=== PATIENT | female | born 1945 | race Caucasian/White ===

== ENCOUNTER → 2016-08-06 | Outpatient (CLI) | payer BC ==
--- NOTE | 2016-08-06 15:02 | DIAGNOSTIC IMAGING REPORT ---
HAND MIN 3 VIEWS ROUTINE CLINICAL HISTORY: Left hand pain COMPARISON: None. DISCUSSION: No fractures or dislocations are visualized. There is a small calcific density projected between the fourth and fifth metacarpals. There is no erosive disease. IMPRESSION: 1. No acute fractures 2. No evidence of erosive disease 3. Nonspecific 4 mm calcific density projected between the fourth and fifth metacarpals. This is unlikely to be acute Electronically signed by: Benjie Nagy M.D. 08/06/2016 3:01 PM Dictated Date/Time: 08/06/2016 2:54 PM
== END | disposition home or self-care (01) ==
LOC: C.RADBC 14:39
PROVIDERS: ATTEND Internal Medicine Geriatric Medicine
DX: M79.642 Pain in left hand (principal); R93.7 Abnormal findings on diagnostic imaging of other parts of musculoskeletal system

== ENCOUNTER → 2017-03-31 | Outpatient (CLI) | payer BC ==
[2017-04-01 06:40] LABS: ESTIMATED AVERAGE GLUCOSE 108 mg/dl; HA1C FLAG Normal (Normal)
== END | disposition home or self-care (01) ==
LOC: C.LAB1850 16:04
PROVIDERS: ATTEND Internal Medicine Geriatric Medicine
DX: E03.9 Hypothyroidism, unspecified (principal); Z11.59 Encounter for screening for other viral diseases

== ENCOUNTER → 2017-04-13 | Outpatient (CLI) | payer BC | END | disposition home or self-care (01) | LOC: C.MAMM 08:51 | PROVIDERS: ATTEND Internal Medicine Geriatric Medicine | DX: E03.9 Hypothyroidism, unspecified (principal) ==

== ENCOUNTER 2020-12-11 19:27 | Inpatient (IN) ==
--- NOTE | 2020-12-11 20:20 | Emergency Department Note ---
History of Present Illness General Chief Complaint: Shortness of Breath/Dyspnea Stated Complaint: LAURA RIGGS Time Seen by Provider: 12/11/20 20:17 Source: patient Limitations: no limitations History of Present Illness Provider Complaint: shortness of breath Onset (ago): hour(s) (2) Severity: moderate Consistency/Duration: + constant Maximum Pain Intensity: 0 Relieved By: + nothing Exacerbated By: + exertion Context: no recent illness Associated symptoms: no cough Related Data Home oxygen amount: none Home Medications Medication Instructions Recorded Confirmed Type simvastatin 20 mg tablet 20 mg PO HS 05/16/20 12/11/20 History levothyroxine 112 mcg tablet 112 mcg PO QAM #90 tab 05/23/20 12/11/20 Rx gabapentin 300 mg capsule 300 mg PO BID #60 cap 10/22/20 12/11/20 Rx Allergies Allergy/AdvReac Type Severity Reaction Status Date / Time nitrofurantoin Allergy Intermediate SWELLING Verified 12/11/20 21:16 Past Med/Surg History Medical History BPPV (benign paroxysmal positional vertigo) HX Chronic osteoarthritis CLL (chronic lymphocytic leukemia) DX'D 03/2018-F/U [facility] Dyslipidemia Hypothyroidism Surgical History Hx of appendectomy Hx of breast surgery LUMPECTOMY-LEFT 25 YRS AGO Hx of colonoscopy Hx of exploratory laparotomy Hx of rhinoplasty Family History Aunt Breast cancer Father Heart disease Myocardial infarction Family history of diabetes mellitus Mother Stroke Daughter Celiac disease Denies family history of Ovarian cancer Prostate cancer Diabetes Alzheimer disease Dementia Lung cancer Colorectal cancer Social History Smoking Status: Never smoker Second Hand Exposure: No; Hx Alcohol Use: Yes Alcohol type: wine Hx Substance Use: No Preferred Language: Swedish Communication Ability: Effective Perfect Binder Feeder Offbearer Required: No Beliefs That Will Affect Care: None Current Living Situation: Spouse current occupational status: retired current occupation: ungrad administion at [employer] Other Information That Helps Us Care for You: No Feels Safe at Home: Yes Childhood Exposure to Second-Hand Smoke: No caffeine: Yes during the past year weight has: remained stable Dental Care, Regularly: Yes Physical Activity Frequency: Daily Seatbelt Use: always Sunscreen Use: Yes Assistive Devices: Glasses Review of Systems See HPI for pertinent positives & negatives. and A total of 10 systems reviewed and were otherwise negative Physical Exam Vital Signs: Vital Signs - 24 hr 12/11/20 19:37 12/11/20 20:31 12/11/20 20:50 Temperature 38 C H Temperature Source Temporal Artery Sc an Pulse Rate 60 120 H Pulse Rate [Apical ] 117 H Respiratory Rate 20 18 28 H Respiratory Effort / Characteristics Spontaneous Short of Breath Respiratory Depth Normal Blood Pressure 121/52 L Blood Pressure [Le ft Radial Artery] Blood Pressure Zahra n 75 Blood Pressure Zahra n [Left Radial Art yasmin] Blood Pressure Pos ition [Left Radial Artery] Pulse Oximetry 97 92 92 Oxygen Delivery Me thod Room Air Nasal Cannula Oxygen Flow Rate 4 Sepsis Recent Feve r Within 48 Hours Yes Sepsis New/Unexpla ined Change in Men demarco Status No Sepsis Action Take n by Nursing No Action Required 12/11/20 21:06 12/11/20 21:07 12/11/20 22:05 Temperature Temperature Source Pulse Rate 122 H Pulse Rate [Apical ] 118 H Respiratory Rate 16 18 Respiratory Effort / Characteristics Respiratory Depth Blood Pressure Blood Pressure [Le ft Radial Artery] 117/60 Blood Pressure Zahra n Blood Pressure Zahra n [Left Radial Art yasmin] 79 Blood Pressure Pos ition [Left Radial Artery] Pulse Oximetry 97 92 Oxygen Delivery Me thod Nasal Cannula Nasal Cannula Nasal Cannula Oxygen Flow Rate 4 4 3 Sepsis Recent Feve r Within 48 Hours Sepsis New/Unexpla ined Change in Men demarco Status Sepsis Action Take n by Nursing 12/12/20 00:27 12/12/20 00:53 12/12/20 01:20 Temperature 38.2 C H Temperature Source Oral Pulse Rate 102 H Pulse Rate [Apical ] 107 H 106 H Respiratory Rate 16 30 H 18 Respiratory Effort / Characteristics Non-Labored Sponta neous Respiratory Depth Normal Blood Pressure 107/55 L Blood Pressure [Le ft Radial Artery] 112/57 L 114/56 L Blood Pressure Zahra n Blood Pressure Zahra n [Left Radial Art yasmin] 75 75 Blood Pressure Pos ition [Left Radial Artery] Sitting Pulse Oximetry 91 91 91 Oxygen Delivery Me thod Nasal Cannula Nasal Cannula Nasal Cannula Oxygen Flow Rate 3 3 3 Sepsis Recent Feve r Within 48 Hours Sepsis New/Unexpla ined Change in Men demarco Status Sepsis Action Take n by Nursing Physical Exam: GENERAL: Mildly uncomfortable in appearance, wearing glasses and a mask. EYE EXAM: Normal conjunctiva. PERRL, no anisocoria and EOM's grossly intact w/o pain. NECK: Supple, no nuchal rigidity, no adenopathy, non-tender. No signs of meningismus. LUNGS: Scant crackles. Normal chest wall mechanics. HEART: NSR, no MRG. ABDOMEN: Abdomen soft, non-tender, normo-active bowel sounds, no masses, no rebound or guarding. BACK: No CVA TTP. SKIN: Rash over the left flank abdomen. UPPER EXTREMITIES: Upper extremities are grossly normal. LOWER EXTREMITIES: Grossly normal, no edema. NEURO EXAM: A&O x3, cranial nerves II-XII grossly intact, normal speech, moves all 4 extremities on command w/o issue. Course Course Cardiac monitoring: An order was placed for continuous cardiac monitoring. The monitor shows a rate of 95 with sinus rhythm. Administered Medications Discontinued Medications Albuterol (Albut/Ipratrop 3mg/0.5mg Neb 3 Ml Vial) 6 ml NEB NOW STA Stop: 12/11/20 20:32 Last Admin: 12/11/20 20:50 Dose: 6 ml Documented by: [id number] Sodium Chloride (Nss 1000ml) 500 mls @ 999 mls/hr IV .Q31M ONE Stop: 12/11/20 21:01 Last Infusion: 12/12/20 00:39 Dose: 0 mls/hr Documented by: [id number] Admin: 12/11/20 22:18 Dose: 999 mls/hr Documented by: [id number] Magnesium Sulfate/Dextrose (Magnesium Sulfate / D5w) 1 gm in 100 mls @ 100 mls/hr IV NOW STA Stop: 12/11/20 21:32 Last Infusion: 12/11/20 22:12 Dose: 0 mls/hr Documented by: [id number] Admin: 12/11/20 21:01 Dose: 100 mls/hr Documented by: [id number] Methylprednisolone (Methylprednisolone 40 Mg/Ml Vial) 40 mg IV NOW STA Stop: 12/11/20 20:32 Last Admin: 12/11/20 20:58 Dose: 40 mg Documented by: [id number] Medical Decision Making Differential Diagnosis Reactive airway disease, pneumonia, pneumothorax, COPD, CHF, infections, cardiac ischemia, pulmonary embolism, musculoskeletal, gastrointestinal, as well as other pathologies. Medical Records Attestation: I reviewed the patient's medical records. Home Medications Current Medication List: was personally reviewed by me Laboratory Data Attestation: I reviewed the patient's lab results. Result diagrams: 12/11/20 20:20 12/11/20 20:20 Lab Results 12/11/20 12/11/20 12/11/20 Range/Units 20:20 20:20 21:00 WBC 7.60 (4.8-10.8) K/uL RBC 4.07 L (4.2-5.4) M/uL Hgb 10.6 L (12.0-16.0) g/dL Hct 33.8 L (37-47) % MCV 83.0 (80-100) fL MCH 26.0 (25-34) pg MCHC 31.4 L (32-36) g/dL RDW Std Deviation 47.7 H (36.4-46.3) fL RDW Coeff of Roxie 15.6 H (11.5-14.5) % Plt Count 225 (130-400) K/uL MPV 9.5 (7.4-10.4) fL Neutrophils % (Manual) 72.1 % Lymphocytes % (Manual) 2.6 % Prolymphocyte % 23.5 % Monocytes % (Manual) 0.9 % Eosinophils % (Manual) 0.9 % Neutrophils # (Manual) 5.48 (1.4-6.5) K/uL Total Absolute Neuts 5.48 (1.4-6.5) K/uL Lymphocytes # (Manual) 0.20 L (1.2-3.4) K/uL Prolymphocyte # 1.79 H (0-0) K/uL Total Abs Lymphocytes 1.98 (1.2-3.4) K/uL Monocytes # (Manual) 0.07 L (0.11-0.59) K/uL Eosinophils # (Manual) 0.07 (0-0.5) K/uL Polychromasia 1+ VBG pH (7.36-7.41) VBG pCO2 (38-50) mmHg VBG pO2 mmHg VBG HCO3 mmol/L VBG O2 Saturation % VBG Base Excess mEq/L Barometric Pressure mm/Hg Sodium 137 (136-145) mmol/L Potassium 3.8 (3.5-5.1) mmol/L Chloride 103 (98-107) mmol/L Carbon Dioxide 25 (21-32) mmol/L Anion Gap 8.0 (3-11) BUN 10 (7-18) mg/dl Creatinine 0.95 (0.6-1.2) mg/dl Est Cr Clr Drug Dosing 54.1 ml/min Est GFR ( Amer) 68.9 ml/min Est GFR (Non-Af Amer) 59.4 ml/min BUN/Creatinine Ratio 10.1 (10-20) Glucose 156 H (70-99) mg/dl Calcium 8.4 L (8.5-10.1) mg/dl Total Bilirubin 0.7 (0.2-1) mg/dl AST 62 H (15-37) U/L ALT 24 (12-78) U/L Alkaline Phosphatase 198 H (45-117) U/L Troponin I < 0.015 (0-0.045) ng/ml NT-Pro-B Natriuret Pep 792 (0-900) pg/ml Total Protein 6.0 L (6.4-8.2) gm/dl Albumin 2.7 L (3.4-5.0) gm/dl Globulin 3.3 (2.5-4.0) gm/dl Albumin/Globulin Ratio 0.8 L (0.9-2) COVID-19 Eval Order Covid19 at [facility] SARS-CoV-2 (PCR) (Negative) 12/11/20 12/11/20 Range/Units 21:00 21:31 WBC (4.8-10.8) K/uL RBC (4.2-5.4) M/uL Hgb (12.0-16.0) g/dL Hct (37-47) % MCV (80-100) fL MCH (25-34) pg MCHC (32-36) g/dL RDW Std Deviation (36.4-46.3) fL RDW Coeff of Roxie (11.5-14.5) % Plt Count (130-400) K/uL MPV (7.4-10.4) fL Neutrophils % (Manual) % Lymphocytes % (Manual) % Prolymphocyte % % Monocytes % (Manual) % Eosinophils % (Manual) % Neutrophils # (Manual) (1.4-6.5) K/uL Total Absolute Neuts (1.4-6.5) K/uL Lymphocytes # (Manual) (1.2-3.4) K/uL Prolymphocyte # (0-0) K/uL Total Abs Lymphocytes (1.2-3.4) K/uL Monocytes # (Manual) (0.11-0.59) K/uL Eosinophils # (Manual) (0-0.5) K/uL Polychromasia VBG pH 7.46 H (7.36-7.41) VBG pCO2 36 L (38-50) mmHg VBG pO2 29 mmHg VBG HCO3 25 mmol/L VBG O2 Saturation < 60.0 % VBG Base Excess 1.3 mEq/L Barometric Pressure 733.4 mm/Hg Sodium (136-145) mmol/L Potassium (3.5-5.1) mmol/L Chloride (98-107) mmol/L Carbon Dioxide (21-32) mmol/L Anion Gap (3-11) BUN (7-18) mg/dl Creatinine (0.6-1.2) mg/dl Est Cr Clr Drug Dosing ml/min Est GFR ( Amer) ml/min Est GFR (Non-Af Amer) ml/min BUN/Creatinine Ratio (10-20) Glucose (70-99) mg/dl Calcium (8.5-10.1) mg/dl Total Bilirubin (0.2-1) mg/dl AST (15-37) U/L ALT (12-78) U/L Alkaline Phosphatase (45-117) U/L Troponin I (0-0.045) ng/ml NT-Pro-B Natriuret Pep (0-900) pg/ml Total Protein (6.4-8.2) gm/dl Albumin (3.4-5.0) gm/dl Globulin (2.5-4.0) gm/dl Albumin/Globulin Ratio (0.9-2) COVID-19 Eval Order SARS-CoV-2 (PCR) NEGATIVE (Negative) Imaging Data Radiologist's Impression: Chest X-Ray 12/11/20 20:31 XR chest 1V portable CLINICAL HISTORY: Dyspnea COMPARISON STUDY: No previous studies for comparison. FINDINGS: No pneumothorax. Moderate left pleural effusion associated with atelectasis/infiltrate. Hazy opacity seen at the right base could represent inflammatory changes/pneumonia or atelectasis. Cardiomediastinal silhouette is within normal limits in size. No significant pulmonary vascular congestion.. Osseous structures: unremarkable Surgical clips are seen within the anatomical region of the left axilla. IMPRESSION: 1. Left pleural effusion associated with atelectasis or infiltrate at the left base. 2. Atelectasis or consolidative opacities within the right lower lung. ACT 112: Negative or not required by law. The above report was generated using voice recognition software. It may contain grammatical, syntax or spelling errors. Electronically signed by: Margarita Garzon DO 12/11/2020 9:39 PM ECG Data Interpretation: Sinus tachycardia, rate of 120, normal intervals, normal axis, n o ST elevations. MDM Narrative Patient did present with concern for shortness of breath. The patient states that this was acute in onset as the patient had had a recent CT scan of the chest abdomen pelvis completed in the outpatient setting approximate 2 hours prior to arrival. This was done with IV contrast. Patient does present febrile but the patient states that she has had numerous CAT scans that have been completed and that she has not been offered much in terms of treatment or an answer. The patient denies any chest pains. Patient denies any nausea or vomiting. The patient thinks that she may have a small amount of leg swelling. The patient reportedly had all these issues begin the springtime in September as the patient had developed shingles. Per outpatient review of notes the patient was thought to have may be CLL or cancer of the spleen and then it was something on the kidney but that a repeat scan did not show any kidney lesion. Patient has been noted to have pleural effusions seen on chest x-ray and I had reviewed after orders were initially placed. The patient did not seem grossly volume overloaded. Patient did have a repeat chest x-ray here. The patient did have improvement in symptoms but after reviewing the patient's outpatient CT scan the patient does have significant pleural effusion seen there. We do not have a read. I discussed with the patient that the patient would likely benefit from Lasix as well as possible BiPAP. She does not believe that she would be able to tolerate the BiPAP very well. The patient was tested for Covid given the patient's fever. Upon reassessment after being treated with the DuoNeb small amount of fluid and steroids the patient did state that she had improvement in her symptoms. Patient has normal white counts with anemia at 10. The patient's kidney function is unremarkable. VBG does show hypocarbia. Patient has normal kidney function. Troponin is not detectable and BNP is not elevated. Covid negative. Given the patient's significant pleural effusions and shortness of breath with associated fever believe the patient would benefit from inpatient treatment at this time. I did speak with the on-call hospitalist Dr. Leone and the patient was admitted to the medicine service. Of note the patient's shingle rash over the left abdomen is reportedly improved as the patient no longer has any blistering and the patient has improvement in her pain. Impression & Plan Acute dyspnea, Pleural effusion, Anemia Discharge Plan Visit Data Chief Complaint: Shortness of Breath/Dyspnea Stated Complaint: SHAKY,LAURA ED Provider: Garfield Brown Patient Disposition: Admitted As Inpatient Prescriptions Prescriptions: No Action levothyroxine 112 mcg tablet 112 mcg PO QAM Qty: 90 RF: 3 gabapentin 300 mg capsule 300 mg PO BID Qty: 60 RF: 2 simvastatin 20 mg tablet 20 mg PO HS RF: 0
[2020-12-11] MEDS ORDERED: ALBUT/IPRATROP 3MG/0.5MG NEB 3 ML VIAL NEB STA (20:31)
[2020-12-11] MEDS ORDERED: SODIUM CHLORIDE 0.9% 1000ML 500 ML IV ONE (20:31)
[2020-12-11] MEDS ORDERED: MAGNESIUM SULFATE / D5W 1 GM/100 ML BAG IV STA (20:33)
[2020-12-11 20:56] LABS: Hematocrit (blood only) 33.8 % (37-47); Hemoglobin 10.6 g/dL (12.0-16.0); Mean Corpuscular Hgb Conc 31.4 g/dL (32-36); Mean Platelet Volume 9.5 fL (7.4-10.4); Platelet Count 225 K/uL (130-400); RDW Coefficient of Variation 15.6 % (11.5-14.5); RDW Standard Deviation 47.7 fL (36.4-46.3); Red Blood Count 4.07 M/uL (4.2-5.4)
[2020-12-11 21:34] LABS: Alanine Aminotransferase 24 U/L (12-78); Albumin Level 2.7 gm/dl (3.4-5.0); BUN Creatinine Ratio 10.1 (10-20); Blood Urea Nitrogen 10 mg/dl (7-18); Calcium 8.4 mg/dl (8.5-10.1); Carbon Dioxide 25 mmol/L (21-32); Chloride 103 mmol/L (98-107); Creatinine Clr Calc Pharmacy 54.1 ml/min; Est GFR (African American) 68.9 ml/min; Est GFR (Non-African American) 59.4 ml/min; Glucose 156 mg/dl (70-99); Potassium 3.8 mmol/L (3.5-5.1); Sodium 137 mmol/L (136-145)
--- NOTE | 2020-12-11 21:40 | XRay Report ---
XR chest 1V portable CLINICAL HISTORY: Dyspnea COMPARISON STUDY: No previous studies for comparison. FINDINGS: No pneumothorax. Moderate left pleural effusion associated with atelectasis/infiltrate. Hazy opacity seen at the right base could represent inflammatory changes/pneumonia or atelectasis. Cardiomediastinal silhouette is within normal limits in size. No significant pulmonary vascular congestion.. Osseous structures: unremarkable Surgical clips are seen within the anatomical region of the left axilla. IMPRESSION: 1. Left pleural effusion associated with atelectasis or infiltrate at the left base. 2. Atelectasis or consolidative opacities within the right lower lung. ACT 112: Negative or not required by law. The above report was generated using voice recognition software. It may contain grammatical, syntax o r spelling errors. Electronically signed by: Margarita Garzon DO 12/11/2020 9:39 PM
[2020-12-11 21:46] LABS: Albumin Globulin Ratio 0.8 (0.9-2); Alkaline Phosphatase 198 U/L (45-117); Aspartate Aminotransferase 62 U/L (15-37); Bilirubin,Total 0.7 mg/dl (0.2-1); Globulin 3.3 gm/dl (2.5-4.0); NT Pro B Type Natriuretic Pept 792 pg/ml (0-900); Troponin I < 0.015 ng/ml (0-0.045)
[2020-12-11 21:53] LABS: Base Excess VBG 1.3 mEq/L; HCO3 VBG 25 mmol/L; PCO2 VBG 36 mmHg (38-50); PO2 VBG 29 mmHg; pH VBG 7.46 (7.36-7.41)
[2020-12-11 21:55] LABS: ALC (manual) 1.98 K/uL (1.2-3.4); ANC (manual) 5.48 K/uL (1.4-6.5); Eosinophils # (manual) 0.07 K/uL (0-0.5); Eosinophils % (manual) 0.9 %; Lymphocytes % (manual) 2.6 %; Monocytes # (manual) 0.07 K/uL (0.11-0.59); Monocytes % (manual) 0.9 %; Neutrophils # (manual) 5.48 K/uL (1.4-6.5); Neutrophils % (manual) 72.1 %; Polychromasia 1+; Prolymphocyte # (manual) 1.79 K/uL (0-0); Prolymphocyte % (manual) 23.5 %
[2020-12-11 21:59] LABS: Oxygen Saturation VBG < 60.0 %
[2020-12-12] MEDS ORDERED: ACETAMINOPHEN 325 MG TAB PO PRN (01:44)
[2020-12-12] MEDS ORDERED: NITROGLYCERIN SL 0.4 MG/TAB TAB SL PRN (01:44)
[2020-12-12] MEDS ORDERED: LEVALBUTEROL HCL 1.25 MG/3 ML NEB NEB PRN (01:44)
[2020-12-12] MEDS ORDERED: ONDANSETRON INJ 2 MG/ML 2 ML VIAL IV PRN (01:44)
[2020-12-12] MEDS ORDERED: POLYETHYLENE (MIRALAX) 17 GM PACK PO PRN (01:44)
[2020-12-12] MEDS ORDERED: cefTRIAXone SODIUM 1,000 MG in DEXTROSE 5% 50 ML IV SCH (02:00)
[2020-12-12] MEDS ORDERED: DOXYCYCLINE HYCLATE 100 MG in DEXTROSE 5% 100 ML IV SCH (03:00)
--- NOTE | 2020-12-12 03:29 | History and Physical Report ---
DATE OF ADMISSION: 12/12/2020. CHIEF COMPLAINT: Shortness of breath and cough. HISTORY OF PRESENT ILLNESS: This is a 75-year-old female with past medical history significant for hypothyroidism, hyperlipidemia, who presents with ongoing cough and shortness of breath. The patient says she was initially diagnosed with CLL in 2019, then she went to [facility] twice. The [place] thought it is not CLL, but a cancer of spleen. Then they thought maybe it is not spleen, but some kind of lymphoma, that need to follow up locally for further workup. She had the shingles in her abdomen last September, she still takes gabapentin since she has some pain, but since then she started developing cough and shortness of breath. Shortness of breath is more when she talks. She can ambulate okay and she has postnasal drip and also has dry cough and cough started in October. She also was found to have bilateral pleural effusion. She was to follow up with pulmonary. She had a CT scan of the chest done yesterday and also CT of abdomen and pelvis for bloating. It was done with contrast and the results are still pending, but after the contrast, 1 hour later, she started feeling very shaky, chilly, and she was advised to come to the ER, but now the shaking and chilly is better. In the ER, she had a temperature spike of 38 degrees, somewhat tachycardic. She was placed on oxygen 3 liters, she is saturating okay. Chest x-ray showed left pleural effusion with atelectasis or infiltrate at the left base. Currently, resting comfortably and hemodynamically stable. With all these ongoing issues, and not knowing what is going on, she is somewhat worried. Denies any headache. Appetite is not that great, but she feels that her stomach feels full soon. Currently no blurred visions, no earache, no sore throat, no nausea. Normal bowel and bladder movements. No swelling in the legs. ALLERGIES: NITROFURANTOIN. PAST MEDICAL HISTORY: As mentioned above. PAST SURGICAL HISTORY: No surgical history on file. SOCIAL HISTORY: , no smoking. Alcohol occasional. No drug use. MEDICATIONS: The patient is on gabapentin 300 mg p.o. b.i.d., levothyroxine 112 mcg p.o. daily, simvastatin 20 mg p.o. at bedtime. REVIEW OF SYSTEMS: As per HPI. Rest of review of systems is negative. PHYSICAL EXAMINATION: GENERAL: The patient is alert and oriented, not in acute distress. VITAL SIGNS: Temperature T-max 38, pulse 107, respiratory rate 16, blood pressure 112/57, oxygen 91% on 3 liters. HEENT: Pupils equal, round, and reactive to light. Oral mucosa moist. NECK: No JVD, no neck masses. CARDIOVASCULAR: S1 and S2 heard. Regular rate and rhythm. No murmur, no gallop. RESPIRATORY SYSTEM: Normal AP diameter. No accessory muscle use. Mild bibasilar crackles. ABDOMEN: Soft, bowel sounds present. Shingles rash seen on the left side of the abdomen, no distention. CENTRAL NERVOUS SYSTEM: Cranial nerves II-XII grossly intact, nonfocal. EXTREMITIES: Mild pedal edema, no erythema. LABORATORY DATA: WBC 7.6, hemoglobin 10.6, hematocrit 33.8, platelets 225. Venous blood gases, pH of 7.4, pCO2 of 36, pO2 of 29, bicarbonate 25. Sodium 137, potassium 3.8, chloride 103, bicarbonate 25, BUN 10, creatinine 0.9, serum glucose 156, calcium 8.4, total bilirubin 0.7, AST 62, ALT 24, alkaline phosphatase 198. Troponin I less than 0.015. BNP 792. SARS-CoV-2 PCR negative. IMAGING DATA: Chest x-ray, left pleural effusions with atelectasis or infiltrate in the left base. EKG: The patient has tachycardia to 120, nonspecific T-wave abnormality seen in Q waves in inferior leads. ASSESSMENT AND PLAN: This is a 75-year-old female who presents with ongoing shortness of breath, cough, and she also is feeling shaky after the IV contrast. 1. Shortness of breath and cough, left pleural effusion, possible left lower lobe infiltrates. She was empirically started on Rocephin and doxycycline. Pulmonary consult for possible thoracocentesis and fluid analysis. The patient says there is a question of ongoing lymphoma or malignancy of spleen. 2. Questionable lymphoma or malignancy of spleen: Needs follow up with hem/onc for workup. 3. Fever: Possible pneumonia. Antibiotics as above. 4. Shingles: On gabapentin, they are healing. 5. Hypothyroidism: On Synthroid. 6. Hyperlipidemia: On statin. 7. Anemia: Will follow the stool for Hemoccult. Iron studies, vitamin B12, folate levels. 8. Deep venous thrombosis prophylaxis: Lovenox. DISPOSITION: Closely monitor in the med tele. Expect to discharge home and follow with family doctor. Job ID: [id number] JOHN
[2020-12-12] MEDS: LEVOTHYROXINE SODIUM 112 MCG TABLET PO SCH (06:20)
[2020-12-12] MEDS: ENOXAPARIN INJ 40 MG/0.4 ML SYR SQ SCH (06:21)
[2020-12-12 07:32] LABS: Hematocrit (blood only) 28.5 % (37-47); Hemoglobin 9.2 g/dL (12.0-16.0); Mean Corpuscular Hemoglobin 26.6 pg (25-34); Mean Corpuscular Hgb Conc 32.3 g/dL (32-36); Mean Corpuscular Volume 82.4 fL (80-100); Mean Platelet Volume 9.6 fL (7.4-10.4); Platelet Count 175 K/uL (130-400); RDW Coefficient of Variation 15.6 % (11.5-14.5); RDW Standard Deviation 46.9 fL (36.4-46.3); Red Blood Count 3.46 M/uL (4.2-5.4); White Blood Count 6.95 K/uL (4.8-10.8)
[2020-12-12 08:04] LABS: BUN Creatinine Ratio 14.3 (10-20); Calcium 7.6 mg/dl (8.5-10.1); Creatinine Clr Calc Pharmacy 60.4 ml/min; Est GFR (African American) 78.8 ml/min; Magnesium 2.2 mg/dl (1.8-2.4); Potassium 3.8 mmol/L (3.5-5.1)
[2020-12-12 08:10] LABS: INR 1.2 (0.9-1.1); Prothrombin Time 12.2 Seconds (9.0-12.0)
[2020-12-12 08:12] LABS: ALC (manual) 0.73 K/uL (1.2-3.4); ANC (manual) 6.16 K/uL (1.4-6.5); Echinocytes 1+; Lymphocytes # (manual) 0.18 K/uL (1.2-3.4); Lymphocytes % (manual) 2.6 %; Microcytosis Present; Monocytes # (manual) 0.06 K/uL (0.11-0.59); Monocytes % (manual) 0.9 %; Neutrophils # (manual) 6.16 K/uL (1.4-6.5); Neutrophils % (manual) 88.6 %; Prolymphocyte # (manual) 0.55 K/uL (0-0); Prolymphocyte % (manual) 7.9 %
--- NOTE | 2020-12-12 08:40 | Ultrasound Report ---
US effusion-chest/mediastinum CLINICAL HISTORY: 75 years-old Female presenting with b/l pleural effusion. TECHNIQUE: Real-time grayscale ultrasound imaging of the posterior aspect of the right and left chest was performed for a focused evaluation at the site of clinical concern. COMPARISON: None. FINDINGS: Pleural effusion is seen on the left with volume approximately 395 mL. No free fluid is seen within right pleural cavity. IMPRESSION: 1. Left pleural effusion with volume approximately 395 mL. ACT 112: Negative or not required by law. Electronically signed by: Margarita Garzon DO 12/12/2020 8:38 AM
[2020-12-12] MEDS: GABAPENTIN 300 MG CAP PO SCH ×2 (08:41→22:11)
--- NOTE | 2020-12-12 13:49 | Pulmonary Consultation ---
Date of Consultation December 12, 2020 Assessment & Plan (1) Abnormal CT scan of lung: (2) Pleural effusion: (3) Cough: (4) Chronic sinusitis: Impression: 75-year-old female with remote history of breast cancer currently being followed for questionable CLL versus lymphoma presents with cough likely secondary to upper airway cough syndrome. Her CT scan does demonstrate bilateral pleural effusions left greater than right. Recommendations: 1. Cough: Suspect this is related upper airway cough syndrome. Recommend a trial of chlorpheniramine 4 mg twice a day, Sudafed LA 120 mg twice a day, Flonase nasal spray 1 spray each nostril twice a day and saline sinus irrigation. If the cough fails to improve, additional evaluation including pulmonary function tests, laboratory studies, and assessment of exhaled nitric oxide might be appropriate. 2. Chronic sinus disease: Management per above. Again if symptoms fail to improve, imaging of the sinuses and otolaryngology consultation may be beneficial. 3. Pleural effusion: They are bilateral. They could be contributing to the patient's cough but certainly may be causing some shortness of breath. Diagnostic and therapeutic thoracentesis is indicated. The patient was consented for the procedure and agreed to proceed. Fluid will be sent for microbiologic as well as cytologic analysis. Will check post procedure chest x- ray. Cannot rule out an infectious etiology especially given the patient's elevated procalcitonin level. Given the bilateral nature of the pleural effusions, echocardiogram would be reasonable. 4. Questionable pneumonia: Patient's been initiated on Rocephin and doxycycline. Okay to transition to oral cefuroxime and change the Doxy to oral as well. Would complete 5-day course. She can follow-up with her primary care provider. If the patient's x-ray demonstrates no pneumothorax post procedure, from my standpoint she can be dismissed from the hospital with outpatient follow-up with her primary care provider and/or pulmonary if needed. Suspect pleural fluid studies may be available over the next 24 to 48hours. Her other pulmonary issues are amenable to outpatient work-up. History of Present Illness Attending Physician: Armando Tovar MD History of Present Illness Asked by hospitalist to evaluate this patient with cough and abnormal CT scan. History is obtained from review electronic medical record as well as evaluation and examination of the patient. Patient is a 75-year-old female with a remote history of breast cancer who is currently being followed by [facility] for potential lymphoma/CLL. She is not on chemotherapy currently. She has had a cough going on for several weeks associated with significant postnasal drip and sinus issues. She was apparently prescribed Flonase in the outpatient setting which was ineffectual. She had some low-grade fevers and progressive shortness of breath. Her outpatient provider ordered a CT scan which demonstrated bilateral pleural effusions left greater than right the patient was referred to the hospital for evaluation. She was admitted placed on antibiotics. Pulmonary was consulted for additional diana luation. Patient denies any history of trauma. She is not on anticoagulants. She is not had any unintentional weight loss or other constitutional symptoms. No B symptoms. She states the cough is dry nonproductive. There is no history of heartburn or reflux. She denies chest pain. No prior history of cardiac issues that she is aware of. She does have an inhaler which was given to her years ago. She relates a remote history of what sounds like PFTs. She states they were normal. She only uses the inhaler when she has allergy symptoms which is less than once a year. Allergies Allergy/AdvReac Type Severity Reaction Status Date / Time nitrofurantoin Allergy Intermediate SWELLING Verified 12/11/20 21:16 Home Medications Medication Instructions Recorded Confirmed Type simvastatin 20 mg tablet 20 mg PO HS 05/16/20 12/11/20 History levothyroxine 112 mcg tablet 112 mcg PO QAM #90 tab 05/23/20 12/11/20 Rx gabapentin 300 mg capsule 300 mg PO BID #60 cap 10/22/20 12/11/20 Rx Patient History Medical History BPPV (benign paroxysmal positional vertigo) HX Chronic osteoarthritis CLL (chronic lymphocytic leukemia) DX'D 03/2018-F/U [facility] Dyslipidemia Hypothyroidism Surgical History Hx of appendectomy Hx of breast surgery LUMPECTOMY-LEFT 25 YRS AGO Hx of colonoscopy Hx of exploratory laparotomy Hx of rhinoplasty Family History Aunt Breast cancer Father Heart disease Myocardial infarction Family history of diabetes mellitus Mother Stroke Daughter Celiac disease Denies family history of Ovarian cancer Prostate cancer Diabetes Alzheimer disease Dementia Lung cancer Colorectal cancer Social History Smoking Status: Never smoker Second Hand Exposure: No; Hx Alcohol Use: Yes Alcohol type: wine Hx Substance Use: No Preferred Language: Lebanese Communication Ability: Effective Hopper Operator Required: No Beliefs That Will Affect Care: None Current Living Situation: Spouse current occupational status: retired current occupation: ungrad administion at [employer] Other Information That Helps Us Care for You: No Feels Safe at Home: Yes Childhood Exposure to Second-Hand Smoke: No caffeine: Yes during the past year weight has: remained stable Dental Care, Regularly: Yes Physical Activity Frequency: Daily Seatbelt Use: always Sunscreen Use: Yes Assistive Devices: Oxygen - Continuous Review of Systems Review of Systems: Please refer to the admission H&P. No changes Physical Exam Constitutional: WD/WN, vitals as above Neck: trachea midline, no thyromegaly Respiratory: no respiratory distress, no labored breathing and no cough Decreased breath sounds at the bilateral bases, left greater than right Cardiovascular: RRR, no murmur, no edema Gastrointestinal (Abdomen): normal bowel sounds, soft, nontender, no hepatosplenomegaly Musculoskeletal: Extremities: extremities normal to inspection Skin: no rashes, warm and dry Neurologic: Nonfocal exam Lymphatic: no cervical lymphadenopathy Results & Data Results & Data ([facility]) Vital Signs (Past 12 Hours) Vital Signs Temp Pulse Pulse Resp BP BP Pulse Ox 12/12/20 12:32 36.4 C L 83 22 132/63 95 12/12/20 08:26 36.9 C 79 18 149/69 H 98 12/12/20 07:27 84 12/12/20 03:28 36.4 C L 93 H 16 93/58 L 96 12/12/20 01:52 98 H 12/12/20 01:44 37.7 C H 105 H 8 L 106/59 L 93 Laboratory Results 12/12/20 06:55 12/12/20 06:55 Diagnostic Findings The patient's outpatient CT scan from [facility] from yesterday was independently reviewed. This demonstrates left greater than right pleural effusions with some compressive atelectasis. There are some hazy opacities at the bilateral lower lung bauman. Some nonspecific/nonpathologically enlarged pretracheal and AP window lymph nodes are identified. PG Care Time/CCT Total # of Minutes Spent Total Time Spent with Patient: Total time spent is greater than 50% in coordination of care (as documented) at patient's floor/unit and/or counseling patient: Coding Level of Care Code 26126 Initial Inpt Care Lvl [address] scan of lung R91.8 Pleural effusion J90 Cough R05 Chronic sinusitis J32.9
--- NOTE | 2020-12-12 13:52 | Procedure Note ---
Procedure Note Date of Service December 12, 2020 Note Procedure: Diagnostic therapeutic ultrasound-guided catheter thoracentesis Thermoforming Machine Operator: Dr. Jonathan Chiu Indication: Pleural effusion Consent: Signed by patient and verified with timeout prior to procedure Anesthesia: 8 mL's 1% lidocaine without epinephrine local. Procedure: Consent was verified and timeout performed. Appropriate imaging studies were reviewed prior to the procedure. Patient was placed in a seated position and limited thoracic ultrasound was performed of the bilateral chest. See separate imaging. A moderate sized left effusion was identified with compressive atelectasis. Very small right-sided effusion was noted. Site appropriate for thoracentesis was selected on the left. The skin was prepped and draped in normal sterile fashion. Lidocaine was used for local analgesia. Fluid was aspirated via the finder needle. A small skin nash was made with the scalpel and the catheter over the needle apparatus was advanced over the rib into the pleural space. Using the syringe one-way valve system, a total of 750 mL's of yellow slightly cloudy fluid was removed. Procedure was terminated due to inability to withdraw additional fluid. The catheter was removed and observed to be intact. A sterile dressing was applied. Post procedure chest x-ray was ordered. Post procedure ultrasound demonstrated trivial residual left pleural effusion with persistent lung sliding noted Fluid was sent for Gram stain and culture, cell count differential, LDH, glucose, total protein, pH, triglycerides, and cholesterol as well as cytology. The patient tolerated the procedure well without obvious complication Coding CPT Codes Pulmonary/Thoracic - Pulmonary and Thoracic: 22891 Thoracentesis w imaging ([id number]) [facility] Procedure Codes (Charges) Pulmonary/Thoracic Procedure 1: Pulmonary and Thoracic: 94533 Thoracentesis w imaging
--- NOTE | 2020-12-12 13:56 | Electrocardiogram Report ---
Test Reason : Blood Pressure : / mmHG Vent. Rate : 120 BPM Atrial Rate : 120 BPM P-R Int : 130 ms QRS Dur : 078 ms QT Int : 280 ms P-R-T Axes : 028 023 005 degrees QTc Int : 395 ms Sinus tachycardia Low voltage QRS Nonspecific ST abnormality Abnormal ECG When compared with ECG of 13-DEC-2012 13:36, Vent. rate has increased BY 57 BPM Nonspecific T wave abnormality, worse in Inferior leads Confirmed by Sukhdeep Arias ([id number]) on 12/12/2020 1:55:33 PM Referred By: REFERRED SELF Confirmed By:Bc Arias
[2020-12-12 14:00] LABS: Glucose Pleural Fluid 124 mg/dl
[2020-12-12 14:09] LABS: LDH Pleural Fluid 538 U/L; Total Protein Pleural Fluid 3.1 g/dl
--- NOTE | 2020-12-12 14:23 | XRay Report ---
XR chest 1V portable HISTORY: 75 years-old Female S/P Thoracentesis left pleural effusion COMPARISON: Chest radiograph 12/11/2020 TECHNIQUE: Portable AP view of the chest FINDINGS: Cardiac silhouette is enlarged. Surgical clips project over the left lung base. Small pleural effusio ns with bibasilar consolidation redemonstrated. Pulmonary vascular congestion. Mildly improved aerati on of the left lung base with decreased size of the left pleural effusion status post thoracentesis. No pneumothorax. Surgical clips of the left breast and axilla. IMPRESSION: 1. Small pleural effusions with persistent bibasilar opacities. The left pleural effusion has decreas ed in size status post thoracentesis. 2. No pneumothorax. 3. Cardiomegaly with pulmonary vascular congestion. ACT 112: Negative or not required by law. The above report was generated using voice recognition software. It may contain grammatical, syntax o r spelling errors. Electronically signed by: Elkin Benítez M.D. 12/12/2020 2:21 PM
[2020-12-12 14:56] LABS: Appearance Pleural Fluid CLEAR; Basophils, Fluid 0 %; Color Pleural Fluid STRAW; Eosinophils, Fluid 0 %; Lymphocytes, Fluid 23 %; Mono,Macrophage,Mesothelial 1 %; Neutrophils, Fluid 24 %; RBC Pleural Fluid (A) < 3000 /uL; Source Pleural Fluid LEFT LUNG; WBC Pleural Fluid (A) 3830 /uL
--- NOTE | 2020-12-12 18:14 | Hospitalist Progress Note ---
Date of Service December 12, 2020 Assessment & Plan (1) Pleural effusion: Plan: Patient is a 75 yr female who presents with ongoing shortness of breath, cough, and she also is feeling shaky after the IV contrast. Pleural effusion Hypoxia Cough: Likely upper airway syndrome Suspected pneumonia --Outpatient Chest/Abd CT on 12/11/20: Hepatosplenomegaly, enlarged abdominal lymph nodes and subcentimeter thoracic lymph nodes. Findings compatible with known CLL. Mild to moderate bilateral pleural effusions, left more than right. Atelectasis changes. Couple of sub-5 mm lymph nodes. --S/P diagnostic therapeutic ultrasound-guided catheter thoracentesis-750ml tianna ruth Follow up Pleural fluid studies Elevated Procalcitonin Empiric Rocephin, doxycycline transitioned to Ceftin, doxycycline-- to complete 5 day course Weaned off of oxygen Abnormal CT CLL as per Records H/O breast Cancer Patient reports being evaluated at [facility], thought to have lymphoma not CLL CT imaging as above Advised to get Biopsy as outpatient Needs follow up with Oncology upon discharge Shingles: On gabapentin Hypothyroidism: Continue Levothyroxine Hyperlipidemia: On statin Anemia: Likely anemia of chronic disease Anemia work up pending DVT Px: Lovenox SQ Code Status Full Code Admission and Anticipated Discharge Date Admission Date: December 12, 2020 Subjective Patient is seen and examined at bedside States having shortness of breath which improved since admission while on oxygen Reports having abdominal distention mild tenderness Also feels chest is congested Denies chest pain, nausea, vomiting, dizziness Review of Systems Review of Systems: All systems reviewed & are unremarkable except as noted in Subjective Physical Exam Physical Exam: Physical Exam: Vitals signs as noted above General Appearance:Moderately built and nourished, no apparent distress Head: normocephalic, Atraumatic Eyes: normal inspection, EOMI Neck: supple, Trachea midline Respiratory/Chest: Decreased breath sounds, basal rales Cardiovascular: S1, S2, No murmur Abdomen/GI:Soft, Abd distended, LLQ mild tender, Bowel sounds present Extremities/Musculoskeletal:normal inspection, Trace pedal edema Neurologic/Psych:AAOX3, grossly no focal neurological deficits Skin: normal color, warm Results & Data Results & Data ([facility]) Vital Signs (Past 12 Hours) Vital Signs Temp Pulse Pulse Resp BP Pulse Ox 12/12/20 17:51 36.7 C 87 16 99/61 L 96 12/12/20 16:56 80 12/12/20 16:17 78 16 95 12/12/20 15:51 36.5 C 79 18 140/81 96 12/12/20 12:32 36.4 C L 83 22 132/63 95 12/12/20 08:26 36.9 C 79 18 149/69 H 98 12/12/20 07:27 84 Laboratory Results Short CBC 12/11/20 12/12/20 Range/Units 20:20 06:55 WBC 7.60 6.95 (4.8-10.8) K/uL Hgb 10.6 L 9.2 L (12.0-16.0) g/dL Hct 33.8 L 28.5 L (37-47) % Plt Count 225 175 (130-400) K/uL BMP 12/11/20 12/12/20 20:20 06:55 Sodium 137 138 Potassium 3.8 3.8 Chloride 103 106 Carbon Dioxide 25 26 BUN 10 12 Creatinine 0.95 0.85 Glucose 156 H 154 H Calcium 8.4 L 7.6 L Cardiac Enzymes 12/11/20 Range/Units 20:20 Troponin I < 0.015 (0-0.045) ng/ml Liver Function 12/11/20 Range/Units 20:20 Total Bilirubin 0.7 (0.2-1) mg/dl AST 62 H (15-37) U/L ALT 24 (12-78) U/L Alkaline Phosphatase 198 H (45-117) U/L Albumin 2.7 L (3.4-5.0) gm/dl
[2020-12-12] MEDS ORDERED: SIMVASTATIN 20 MG TAB PO SCH (21:00)
[2020-12-12] MEDS: DOXYCYCLINE HYCLATE 100 MG CAP PO SCH (22:12)
[2020-12-12] MEDS: cefUROXime axetil 500 MG TAB PO SCH (22:12)
[2020-12-12] MEDS: SODIUM CHLORIDE 0.65% NA SOLN 45 ML (OCEAN) SCH (22:16)
[2020-12-12] MEDS: FLUTICASONE PROPIONATE NA SPR 16 GM BTL SCH (23:06)
[2020-12-13] MEDS: LEVOTHYROXINE SODIUM 112 MCG TABLET PO SCH (06:14)
[2020-12-13] MEDS: ENOXAPARIN INJ 40 MG/0.4 ML SYR SQ SCH (06:15)
[2020-12-13 07:58] LABS: Hematocrit (blood only) 28.6 % (37-47); Hemoglobin 8.9 g/dL (12.0-16.0); Mean Corpuscular Hemoglobin 25.8 pg (25-34); Mean Corpuscular Hgb Conc 31.1 g/dL (32-36); Mean Corpuscular Volume 82.9 fL (80-100); Mean Platelet Volume 9.4 fL (7.4-10.4); Platelet Count 185 K/uL (130-400); RDW Coefficient of Variation 15.7 % (11.5-14.5); RDW Standard Deviation 47.9 fL (36.4-46.3); Red Blood Count 3.45 M/uL (4.2-5.4); White Blood Count 3.94 K/uL (4.8-10.8)
[2020-12-13 08:29] LABS: BUN Creatinine Ratio 19.2 (10-20); Calcium 7.7 mg/dl (8.5-10.1); Creatinine Clr Calc Pharmacy 73.5 ml/min; Est GFR (African American) 99.6 ml/min; Magnesium 2.5 mg/dl (1.8-2.4); Potassium 3.9 mmol/L (3.5-5.1)
[2020-12-13] MEDS: SODIUM CHLORIDE 0.65% NA SOLN 45 ML (OCEAN) SCH (08:29)
[2020-12-13] MEDS: FLUTICASONE PROPIONATE NA SPR 16 GM BTL SCH (08:30)
[2020-12-13] MEDS: GABAPENTIN 300 MG CAP PO SCH (08:31)
[2020-12-13] MEDS: DOXYCYCLINE HYCLATE 100 MG CAP PO SCH (08:32)
[2020-12-13] MEDS: cefUROXime axetil 500 MG TAB PO SCH (08:32)
[2020-12-13 08:34] LABS: Ferritin 235.9 ng/ml (8-388)
[2020-12-13 08:53] LABS: Folate (Folic Acid) 9.3 ng/ml (>5.38)
--- NOTE | 2020-12-13 09:16 | Pulmonology Progress Note ---
Date of Service December 13, 2020 Assessment & Plan (1) Abnormal CT scan of lung: (2) Pleural effusion: (3) Cough: (4) Chronic sinusitis: Plan: Impression: 75-year-old female with remote history of breast cancer currently being followed for questionable CLL versus lymphoma presents with cough likely secondary to upper airway cough syndrome. Her CT scan does demonstrate bilateral pleural effusions left greater than right. She underwent diagnostic and therapeutic thoracentesis yesterday. Fluid shows no signs of infection and Gram stain is negative. Recommendations: 1. Cough: Suspect this is related upper airway cough syndrome. Patient is currently on Benadryl and Sudafed as well as Flonase. Can transition to chlorpheniramine and Sudafed LA with saline sinus irrigation as an outpatient. If the cough fails to improve, additional evaluation including pulmonary function tests, laboratory studies, and assessment of exhaled nitric oxide might be appropriate. 2. Chronic sinus disease: Management per above. Again if symptoms fail to improve, imaging of the sinuses and otolaryngology consultation may be beneficial. 3. Pleural effusion: They are bilateral. Reviewed cytology with pathology. There appeared to be immature lymphocytes present and a large proportion greater than 50%. Given the fact that she has 2 cell lines depressed with leukopenia and anemia, feel this may be consistent with CLL. Pathology did not feel this was consistent with lymphoma but will await cytology. The patient needs continued oncology follow-up which is apparently being arranged at [facility] in [place]. Would defer bone marrow biopsy to them. 4. Questionable pneumonia: On cefuroxime and oral doxycycline. Would complete 5 days. The patient can be dismissed from the hospital at this point in time. She needs to follow-up with medical oncology in the outpatient setting. Flow cytometry results may be available sometime next week. I would be happy to see her back in the pulmonary clinic if needed. Discussed with patient at bedside Pulmonary will sign off at this point time. Call us if we can be of additional assistance Admission and Anticipated Discharge Date Admission Date: December 12, 2020 Subjective Patient seen and examined. EMR reviewed. She states she feels better. Her cough is improved. She is experiencing some minimal discomfort at the thoracentesis site but overall feels better. She denies chest pain or palpitations. No significant lower extremity edema. Review of Systems Review of Systems: All systems reviewed & are unremarkable except as noted in HPI & below Physical Exam Constitutional: WD/WN, vitals as above Neck: trachea midline, no thyromegaly Respiratory: no respiratory distress, no labored breathing and no cough Cardiovascular: RRR, no murmur, no edema Gastrointestinal (Abdomen): normal bowel sounds, soft, nontender, no hepatosplenomegaly Musculoskeletal: Extremities: extremities normal to inspection Skin: no rashes, warm and dry Lymphatic: no cervical lymphadenopathy Results & Data Results & Data ([facility]) Vital Signs (Past 12 Hours) Vital Signs Temp Pulse Pulse Resp BP Pulse Ox 12/13/20 07:50 37.2 C 81 18 105/63 90 12/13/20 04:17 78 12/13/20 02:51 36.5 C 85 20 107/66 92 12/12/20 23:18 36.3 C L 75 18 118/70 96 Laboratory Results 12/13/20 07:13 Differential on initial CBC showed 8% prolymphocytes on peripheral smear. 12/13/20 07:13 Procalcitonin decreased to twenty-two Pleural fluid studies: Differential: 24% neutrophils, 23% lymphocytes, large atypical cells identified and await cytology Total protein 3.1 LDH five thirty-eight Glucose 124 Gram stain and culture with many white blood cells but no organism. No growth on culture to date. AFB stains negative Diagnostic Findings Post thoracentesis x-ray was independently reviewed. Decrease of the left pleural effusion. Trivial right effusion. PG Care Time/CCT Total # of Minutes Spent Total Time Spent with Patient: Total time spent is greater than 50% in coordination of care (as documented) at patient's floor/unit and/or counseling patient: Coding Level of Care Code 02630 Subseq Hosp Care Lvl [address] scan of lung R91.8 Pleural effusion J90 Cough R05 Chronic sinusitis J32.9
[2020-12-13] MEDS ORDERED: PSEUDOEPHEDRINE HCL 30 MG TAB PO SCH (09:30)
[2020-12-13] MEDS ORDERED: diphenhydrAMINE Capsule 25 MG CAP PO SCH (09:30)
--- NOTE | 2020-12-13 12:48 | Hospitalist Progress Note ---
Date of Service December 13, 2020 Assessment & Plan (1) Pleural effusion: Plan: Patient is a 75 yr female who presents with ongoing shortness of breath, cough, and she also is feeling shaky after the IV contrast. Pleural effusion Hypoxia Cough: Likely upper airway syndrome Suspected pneumonia --Outpatient Chest/Abd CT on 12/11/20: Hepatosplenomegaly, enlarged abdominal lymph nodes and subcentimeter thoracic lymph nodes. Findings compatible with known CLL. Mild to moderate bilateral pleural effusions, left more than right. Atelectasis changes. Couple of sub-5 mm lymph nodes. --S/P diagnostic therapeutic ultrasound-guided catheter thoracentesis-750ml tianna ruth Pleural fluid studies doesn't suggest infection Elevated Procalcitonin Empiric Rocephin, doxycycline transitioned to Ceftin, doxycycline-- to complete 5 day course Weaned off of oxygen 2 Step: Did not qualify for oxygen Flow Cytometry, Cytology pending Abnormal CT CLL as per Records H/O breast Cancer Patient reports being evaluated at [facility], thought to have lymphoma not CLL CT imaging as above Advised to get Biopsy as outpatient Advised to follow up with Oncology upon discharge Shingles: On gabapentin Hypothyroidism: Continue Levothyroxine Hyperlipidemia: On statin Anemia: Likely anemia of chronic disease Anemia work up done DVT Px: Lovenox SQ Code Status Full Code Admission and Anticipated Discharge Date Admission Date: December 12, 2020 Subjective Patient is seen and examined at bedside States feeling better No new complaints Had 2 step : didn't qualify for oxygen Dyspnea much improved Persistent abdominal distention Denies chest pain, nausea, vomiting, dizziness Review of Systems Review of Systems: All systems reviewed & are unremarkable except as noted in Subjective Physical Exam Physical Exam: Physical Exam: Vitals signs as noted above General Appearance:Moderately built and nourished, no apparent distress Head: normocephalic, Atraumatic Eyes: normal inspection, EOMI Neck: supple, Trachea midline Respiratory/Chest: Decreased breath sounds, basal rales Cardiovascular: S1, S2, No murmur Abdomen/GI:Soft, Abd distended, LLQ mild tender, Bowel sounds present Extremities/Musculoskeletal:normal inspection, Trace pedal edema Neurologic/Psych:AAOX3, grossly no focal neurological deficits Skin: normal color, warm Results & Data Results & Data ([facility]) Vital Signs (Past 12 Hours) Vital Signs Temp Pulse Pulse Pulse Pulse Pulse Resp 12/13/20 11:46 37.2 C 87 18 12/13/20 11:11 74 76 75 12/13/20 09:59 83 12/13/20 07:50 37.2 C 81 18 12/13/20 04:17 78 12/13/20 02:51 36.5 C 85 20 Resp Resp Resp BP Pulse Ox Pulse Ox Pulse Ox 12/13/20 11:46 106/68 95 12/13/20 11:11 18 18 18 100 99 12/13/20 09:59 12/13/20 07:50 105/63 90 12/13/20 04:17 12/13/20 02:51 107/66 92 Pulse Ox 12/13/20 11:46 12/13/20 11:11 96 12/13/20 09:59 12/13/20 07:50 12/13/20 04:17 12/13/20 02:51 Laboratory Results Short CBC 12/13/20 Range/Units 07:13 WBC 3.94 L (4.8-10.8) K/uL Hgb 8.9 L (12.0-16.0) g/dL Hct 28.6 L (37-47) % Plt Count 185 (130-400) K/uL BMP 12/13/20 07:13 Sodium 139 Potassium 3.9 Chloride 108 H Carbon Dioxide 27 BUN 13 Creatinine 0.70 Glucose 87 Calcium 7.7 L
--- NOTE | 2020-12-13 12:56 | Discharge Summary ---
Date of Service December 13, 2020 Admission HPI Per Admitting Provider CHIEF COMPLAINT: Shortness of breath and cough. HISTORY OF PRESENT ILLNESS: This is a 75-year-old female with past medical history significant for hypothyroidism, hyperlipidemia, who presents with ongoing cough and shortness of breath. The patient says she was initially diagnosed with CLL in 2019, then she went to [facility] twice. The [place] thought it is not CLL, but a cancer of spleen. Then they thought maybe it is not spleen, but some kind of lymphoma, that need to follow up locally for further workup. She had the shingles in her abdomen last September, she still takes gabapentin since she has some pain, but since then she started developing cough and shortness of breath. Shortness of breath is more when she talks. She can ambulate okay and she has postnasal drip and also has dry cough and cough started in October. She also was found to have bilateral pleural effusion. She was to follow up with pulmonary. She had a CT scan of the chest done yesterday and also CT of abdomen and pelvis for bloating. It was done with contrast and the results are still pending, but after the contrast, 1 hour later, she started feeling very shaky, chilly, and she was advised to come to the ER, but now the shaking and chilly is better. In the ER, she had a temperature spike of 38 degrees, somewhat tachycardic. She was placed on oxygen 3 liters, she is saturating okay. Chest x-ray showed left pleural effusion with atelectasis or infiltrate at the left base. Currently, resting comfortably and hemodynamically stable. With all these ongoing issues, and not knowing what is going on, she is somewhat worried. Denies any headache. Appetite is not that great, but she feels that her stomach feels full soon. Currently no blurred visions, no earache, no sore throat, no nausea. Normal bowel and bladder movements. No swelling in the legs. Admission Exam Per Admitting Provider PHYSICAL EXAMINATION: GENERAL: The patient is alert and oriented, not in acute distress. VITAL SIGNS: Temperature T-max 38, pulse 107, respiratory rate 16, blood pressure 112/57, oxygen 91% on 3 liters. HEENT: Pupils equal, round, and reactive to light. Oral mucosa moist. NECK: No JVD, no neck masses. CARDIOVASCULAR: S1 and S2 heard. Regular rate and rhythm. No murmur, no gallop. RESPIRATORY SYSTEM: Normal AP diameter. No accessory muscle use. Mild bibasilar crackles. ABDOMEN: Soft, bowel sounds present. Shingles rash seen on the left side of the abdomen, no distention. CENTRAL NERVOUS SYSTEM: Cranial nerves II-XII grossly intact, nonfocal. EXTREMITIES: Mild pedal edema, no erythema. 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 Pleural effusion Hypoxia Cough: Likely upper airway syndrome Suspected pneumonia --Outpatient Chest/Abd CT on 12/11/20: Hepatosplenomegaly, enlarged abdominal lymph nodes and subcentimeter thoracic lymph nodes. Findings compatible with known CLL. Mild to moderate bilateral pleural effusions, left more than right. Atelectasis changes. Couple of sub-5 mm lymph nodes. --S/P diagnostic therapeutic ultrasound-guided catheter thoracentesis-750ml removed Pleural fluid studies doesn't suggest infection Elevated Procalcitonin Empiric Rocephin, doxycycline transitioned to Ceftin, doxycycline-- to complete 5 day course Weaned off of oxygen 2 Step: Did not qualify for oxygen Flow Cytometry, Cytology pending Abnormal CT CLL as per Records H/O breast Cancer Patient reports being evaluated at [facility], thought to have lymphoma not CLL CT imaging as above Advised to get Biopsy as outpatient Advised to follow up with Oncology upon discharge Shingles: On gabapentin Hypothyroidism: Continue Levothyroxine Hyperlipidemia: On statin Anemia: Likely anemia of chronic disease Anemia work up done DVT Px: Lovenox SQ Code Status Full Code Total Time Total Time Spent Total Time Spent (In Minutes): 38 minutes Discharge Plan Discharge Items Patient Disposition: Home - Self-Care Reason For Visit: SOB Discharge Diagnosis: Pleural effusion Hypoxia 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 Anemia of Chronic disease Activity: Per Instructions section Exercise/Sports: Wait until after follow-up appointment Non-emergency contact: Primary Care Provider and Oncologist Call non-emergency contact if: you have any medication questions, your symptoms worsen, your pain is concerning for you and you have a fever Follow-up/Referrals: Zeinab Mora PA-C [Primary Care Provider] - (Date & Time 12/20/2020 12:00 PM Provider Wilbert Connor MD Department General Internal Medicine [facility] ) Diet: Heart Healthy Addtl Attending Provider Instructions: Follow-up with your primary care physician Indira Canchola PA-C on 12/20/2020 12:00 PM as scheduled Follow-up with your oncologist as recommended for further evaluation of possible CLL/Lymphoma Consider following your ENT for chronic sinusitis if your symptoms persist Complete antibiotic course as prescribed as recommended by your product expert. Your Flow cytometry, cytology of pleural fluid are pending at the time of discharge. Follow-up with your physician for results. Seek immediate medical attention if your symptoms reoccur or worsen Please take all medications as instructed on discharge list below. Please call if you have any questions or problems. You can reach a [facility] hospitalist on duty at [facility] 24 hours a day by calling [phone] Pending Studies at Discharge: Yes Studies:: Flow cytometry, cytology Stand-Alone Forms: My [facility] Medications and DC Order Prescriptions: New doxycycline hyclate 100 mg Capsule 100 mg PO BID Qty: 8 RF: 0 diphenhydramine HCl [Benadryl] 25 mg Capsule 25 mg PO BID Qty: 30 RF: 0 pseudoephedrine HCl [Suphedrine] 30 mg Tablet 30 mg PO BID Qty: 30 RF: 0 cefuroxime axetil 500 mg Tablet 500 mg PO BID Qty: 8 RF: 0 fluticasone propionate 50 mcg/actuation [place],Suspension 1 spray NA BID Qty: 1 RF: 0 sodium chloride [Saline Mist] 0.65 % Aerosol,[place] 1 spray NA BID Qty: 1 RF: 0 Continued levothyroxine 112 mcg tablet 112 mcg PO QAM Qty: 90 RF: 3 gabapentin 300 mg capsule 300 mg PO BID Qty: 60 RF: 2 simvastatin 20 mg tablet 20 mg PO HS RF: 0 Discharge Orders: Discharge Order (Routine); Ordered 12/13/20 Ordered By: Armando Tovar Admission Data Admit Date/Time: 12/12/20 00:48 Attending Provider: Armando Tovar Admit Provider: Tio Leone Primary Care Provider: Zeinab Mora Other Providers: Tio Leone ; Jonathan Chiu Other Interventions: Discharge Summary Assessment (RN) Last Done: 12/13/20 12:57
--- NOTE | 2020-12-24 05:55 | Coding Query ---
CODING QUERY To promote full compliance with coding requirements relating to patient care, provider participation is requested in all cases of mammalogy teacher uncertainty. Please assist us with the question(s) below: Coding Question(s): Pateint admitted with bilateral pleural effusions. Pneumonia/infectious process ruled out. Hx of CML/Lymphoa ([facility]). Thoracentesis done this admission - Addendum from outside re: cytology results now available. Please document, if known or suspected, the etiology of pleural effusions. Thanks for your help. Matt Currie, [facility] Physician's Response(s): Pleural effusion secondary to CLL Principal Diagnosis: "that condition established after study, to be chiefly responsible for occasioning the admission of the patient to the hospital for care." Co-Existing Principal Diagnosis: "when two or more diagnoses equally meet the criteria for principal diagnosis as determined by the circumstances of admission, diagnostic work up, and/or therapy provided, and the Alphabetic Index, Tabular List, or another coding guideline does not provide sequencing direction, any one of the diagnoses may be sequenced first." "When the physician has documented what appears to be a current diagnosis in the body of the record, but has not included the diagnosis in the final diagnostic statement, the physician should be asked whether the diagnosis should be added." (Source Coding Clinic 2 QTR90. p3-4) JOHN
== END 2020-12-13 13:34 | disposition home or self-care (01) | DRG 841 ==
LOC: ED 19:27 → SUATTDRO 12-12 00:48 → 2S 12-12 00:48 → 2W 12-12 17:43

== ENCOUNTER 2021-01-21 15:31 | Inpatient (IN) ==
[2021-01-21] MEDS ORDERED: SODIUM CHLORIDE 0.9% 1000ML 1,000 ML IV SCH (17:30)
[2021-01-21] MEDS ORDERED: ACETAMINOPHEN 1,000 MG/100 ML VIAL IV STA (17:53)
[2021-01-21] MEDS ORDERED: SODIUM CHLORIDE 0.9% 1000ML 1,000 ML IV ONE ×2 (17:53→22:01)
--- NOTE | 2021-01-21 17:53 | Emergency Department Note ---
History of Present Illness General Chief complaint: Urinary Symptoms Stated complaint: UTI Time Seen by Provider: 01/21/21 17:15 History of Present Illness Provider complaint: Dysuria Onset (ago): day(s) 2 Associated symptoms: + fever/chills and + nausea/vomiting (Nausea no vomiting); no cough, no headaches, no rash or no shortness of breath 75-year-old female presents emergency department for dysuria. Patient reports her symptoms began 2 days ago. Patient reports she feels like it is burning when she urinates. She also reports nausea. Patient has had fever. Patient is currently being treated for CLL on chemotherapy. Home Medications Medication Instructions Recorded Confirmed Type simvastatin 20 mg tablet 20 mg PO HS 05/16/20 01/21/21 History gabapentin 300 mg capsule 300 mg PO BID #60 cap 10/22/20 01/21/21 Rx acalabrutinib 100 mg capsule 100 mg PO BID 01/21/21 01/21/21 History ([place]) acyclovir 400 mg tablet 400 mg PO BID 01/21/21 01/21/21 History allopurinol 300 mg tablet 300 mg PO DAILY 01/21/21 01/21/21 History hydrocodone-homatropine 5 mg-1.5 5 ml PO QID PRN 01/21/21 01/21/21 History mg/5 mL oral syrup (Hydromet) levothyroxine 125 mcg tablet 125 mcg PO QAM 01/21/21 01/21/21 History ondansetron HCl 8 mg tablet 8 mg PO Q8 PRN 01/21/21 01/21/21 History oxycodone 5 mg tablet 5 mg PO Q4 PRN 01/21/21 01/21/21 History Allergies Allergy/AdvReac Type Severity Reaction Status Date / Time nitrofurantoin Allergy Intermediate SWELLING Verified 01/21/21 17:30 Past Med/Surg History Medical History BPPV (benign paroxysmal positional vertigo) HX Chronic osteoarthritis CLL (chronic lymphocytic leukemia) DX'D 03/2018-F/U [facility] Dyslipidemia Hypothyroidism Surgical History Hx of appendectomy Hx of breast surgery LUMPECTOMY-LEFT 25 YRS AGO Hx of colonoscopy Hx of exploratory laparotomy Hx of rhinoplasty Family History Aunt Breast cancer Father Heart disease Myocardial infarction Family history of diabetes mellitus Mother Stroke Daughter Celiac disease Denies family history of Ovarian cancer Prostate cancer Diabetes Alzheimer disease Dementia Lung cancer Colorectal cancer Social History Smoking Status: Never smoker Second Hand Exposure: No; Hx Alcohol Use: Yes Alcohol type: wine Hx Substance Use: No Preferred Language: [place] Zealander Communication Ability: Effective Registered Nurse Maternal Child Required: No Beliefs That Will Affect Care: None Current Living Situation: Spouse current occupational status: retired current occupation: ungrad administion at [employer] Feels Safe at Home: Yes Childhood Exposure to Second-Hand Smoke: No caffeine: Yes during the past year weight has: remained stable Dental Care, Regularly: Yes Physical Activity Frequency: Daily Seatbelt Use: always Sunscreen Use: Yes Assistive Devices: Oxygen - Continuous Review of Systems A total of 10 systems reviewed and were otherwise negative Physical Exam Vital Signs Vital Signs - 24 hr 01/21/21 15:57 01/21/21 18:06 01/21/21 18:07 Temperature 38.2 C H 39.6 C H Temperature Source Temporal Artery Scan Oral Pulse Rate 112 H 104 H Pulse Rate [Apical] 111 H Pulse Rate from SpO2 Sensor 104 H Respiratory Rate 18 19 18 Respiratory Effort / Characteristics Non-Labored Respiratory Depth Normal Blood Pressure 136/89 122/47 L Blood Pressure [Left Arm] 122/47 L Blood Pressure [Right Arm] Blood Pressure Mean 104 72 Blood Pressure Mean [Left Arm] 72 Blood Pressure Mean [Right Arm] Pulse Oximetry 100 98 98 Oxygen Delivery Method Room Air Room Air Sepsis Recent Fever Within 48 Hours Yes Sepsis New/Unexplained Change in Mental Status No Sepsis Action Taken by Nursing No Action Required 01/21/21 18:52 01/21/21 19:00 01/21/21 19:30 Temperature Temperature Source Pulse Rate 101 H Pulse Rate [Apical] Pulse Rate from SpO2 Sensor 102 H Respiratory Rate 20 Respiratory Effort / Characteristics Non-Labored Spontaneous Respiratory Depth Blood Pressure 111/61 99/51 L Blood Pressure [Left Arm] Blood Pressure [Right Arm] Blood Pressure Mean 77 67 Blood Pressure Mean [Left Arm] Blood Pressure Mean [Right Arm] Pulse Oximetry 96 96 Oxygen Delivery Method Room Air Sepsis Recent Fever Within 48 Hours Sepsis New/Unexplained Change in Mental Status Sepsis Action Taken by Nursing 01/21/21 20:00 01/21/21 20:33 01/21/21 20:41 Temperature 37.7 C H Temperature Source Oral Pulse Rate 96 H 109 H Pulse Rate [Apical] Pulse Rate from SpO2 Sensor 96 H 110 H Respiratory Rate 22 19 Respiratory Effort / Characteristics Respiratory Depth Blood Pressure 103/46 L Blood Pressure [Left Arm] Blood Pressure [Right Arm] Blood Pressure Mean 65 Blood Pressure Mean [Left Arm] Blood Pressure Mean [Right Arm] Pulse Oximetry 96 100 Oxygen Delivery Method Sepsis Recent Fever Within 48 Hours Sepsis New/Unexplained Change in Mental Status Sepsis Action Taken by Nursing 01/21/21 21:00 01/21/21 21:31 01/21/21 21:50 Temperature 38.4 C H Temperature Source Oral Pulse Rate 135 H 144 H 143 H Pulse Rate [Apical] Pulse Rate from SpO2 Sensor 135 H Respiratory Rate 26 H 23 24 Respiratory Effort / Characteristics Respiratory Depth Blood Pressure 122/93 117/54 L Blood Pressure [Left Arm] Blood Pressure [Right Arm] Blood Pressure Mean 102 75 Blood Pressure Mean [Left Arm] Blood Pressure Mean [Right Arm] Pulse Oximetry 100 98 Oxygen Delivery Method Room Air Sepsis Recent Fever Within 48 Hours Sepsis New/Unexplained Change in Mental Status Sepsis Action Taken by Nursing 01/21/21 22:00 01/21/21 22:07 01/21/21 22:17 Temperature 39.5 C H 39.5 C H Temperature Source Oral Oral Pulse Rate 137 H 138 H 138 H Pulse Rate [Apical] Pulse Rate from SpO2 Sensor 137 H Respiratory Rate 27 H 21 28 H Respiratory Effort / Characteristics Respiratory Depth Blood Pressure 121/61 92/52 L 89/38 L Blood Pressure [Left Arm] Blood Pressure [Right Arm] Blood Pressure Mean 81 65 55 Blood Pressure Mean [Left Arm] Blood Pressure Mean [Right Arm] Pulse Oximetry 100 99 99 Oxygen Delivery Method Room Air Sepsis Recent Fever Within 48 Hours Sepsis New/Unexplained Change in Mental Status Sepsis Action Taken by Nursing 01/21/21 22:31 01/21/21 22:45 01/21/21 22:51 Temperature Temperature Source Pulse Rate 133 H 128 H 121 H Pulse Rate [Apical] Pulse Rate from SpO2 Sensor 136 H Respiratory Rate 37 H 30 H 31 H Respiratory Effort / Characteristics Respiratory Depth Blood Pressure 99/40 L 81/44 L 82/39 L Blood Pressure [Left Arm] Blood Pressure [Right Arm] Blood Pressure Mean 59 56 53 Blood Pressure Mean [Left Arm] Blood Pressure Mean [Right Arm] Pulse Oximetry Oxygen Delivery Method Sepsis Recent Fever Within 48 Hours Sepsis New/Unexplained Change in Mental Status Sepsis Action Taken by Nursing 01/21/21 22:53 01/21/21 22:54 01/21/21 22:55 Temperature 39.3 C H Temperature Source Oral Pulse Rate 123 H Pulse Rate [Apical] Pulse Rate from SpO2 Sensor Respiratory Rate 23 Respiratory Effort / Characteristics Respiratory Depth Blood Pressure 71/43 L Blood Pressure [Left Arm] Blood Pressure [Right Arm] 78/32 L Blood Pressure Mean 52 Blood Pressure Mean [Left Arm] Blood Pressure Mean [Right Arm] 47 Pulse Oximetry Oxygen Delivery Method Sepsis Recent Fever Within 48 Hours Sepsis New/Unexplained Change in Mental Status Sepsis Action Taken by Nursing 01/21/21 23:00 01/21/21 23:15 Temperature Temperature Source Pulse Rate 116 H 114 H Pulse Rate [Apical] Pulse Rate from SpO2 Sensor 113 H Respiratory Rate 27 H 34 H Respiratory Effort / Characteristics Respiratory Depth Blood Pressure 83/35 L 73/32 L Blood Pressure [Left Arm] Blood Pressure [Right Arm] Blood Pressure Mean 51 45 Blood Pressure Mean [Left Arm] Blood Pressure Mean [Right Arm] Pulse Oximetry 96 Oxygen Delivery Method Sepsis Recent Fever Within 48 Hours Sepsis New/Unexplained Change in Mental Status Sepsis Action Taken by Nursing Physical Exam GENERAL: She is oriented to person, place, and time. She appears well-developed and well-nourished. She does not appear distressed. HENT: Exam performed. -Head: Normocephalic and atraumatic. -Right Ear: External ear normal. No mastoid tenderness. -Left Ear: External ear normal. No mastoid tenderness. -Mouth/Throat: The oropharynx is clear and moist. No trismus in the jaw. No dental abscesses or uvula swelling. No oropharyngeal exudate or tonsillar abscesses. EYES: Conjunctivae and EOM are normal. Pupils are equal, round, and reactive to light. Right eye exhibits no discharge. Left eye exhibits no discharge. No scleral icterus. NECK: Normal range of motion. Neck supple. No JVD present. No spinous process tenderness present. No carotid bruit present. No rigidity. No tracheal deviation and normal range of motion present. No Brudzinski's sign and no Kernig's sign noted. CV: Normal rate, regular rhythm, normal heart sounds and intact distal pulses. There is no peripheral edema. Palpable radial pulses bue. PULM/CHEST: Effort normal and breath sounds normal. No respiratory distress. No stridor. She has no wheezes. She has no rales. -Chest Wall: She exhibits no tenderness. ABD: The abdomen is soft. Bowel sounds are normal. She has no distension. No mass is present. There is tenderness to palpation of the left lower quadrant and suprapubic area. There is no rebound, no guarding, no Ventura's sign and no tenderness at McBurney's point. Rovsig negative MUSC/SKEL: Normal range of motion. There is no peripheral edema, tenderness or deformity. LYMPH: No cervical adenopathy. NEURO: She is alert and oriented to person, place, and time. She has normal strength. No cranial nerve deficit or sensory deficit. Coordination and gait normal. GCS eye subscore is 4. GCS verbal subscore is 5. GCS motor subscore is 6. Cerebellar tests wnl. SKIN: Skin is warm and dry. She is not diaphoretic. PSYCH: She has a normal mood and affect. Behavior is normal. Judgment and thought content normal. Course Course 1714: The patient was evaluated in room C9. A complete history and physical exam was performed Cardiac monitoring: An order was placed for continuous cardiac monitoring. The monitor shows a rate of 110 with sinus tachycardia rhythm Sepsis protocols initiated. 1944: [facility] EMR was accessed via [facility]. Patient was neutropenic. Patient is leukopenic and anemic today. Spoke with Dr. Huang [facility] oncology who recommends admission for neutropenic fever, 1 unit packed red blood cells irradiated, no rectal exam. Cefepime ordered for neutropenic fever. Discussed with patient and at bedside who agree. 2030: CT consistent with cystitis. Lactic acid within normal limits. Patient will be admitted to the [facility] hospitalist team. Dr. Leone notified 2214: During blood transfusion been started the patient's temperature edwige and the patient's blood pressure began to drop ventricular tachycardia. Blood transfusion was stopped and Benadryl ordered for the patient.Contacted admitting team Dr. Leone who was made aware of this. Administered Medications Vancomycin HCl 1,500 mg/ (Sodium Chloride) 530 mls @ 200 mls/hr IV ONE STA; Protocol Stop: 01/22/21 01:03 Last Admin: 01/21/21 23:11 Dose: 200 mls/hr Documented by: [id number] Discontinued Medications Acetaminophen (Acetaminophen 325 Mg Tab) Confirm Administered Dose 650 mg .ROUTE .STK-MED ONE Stop: 01/21/21 21:09 Last Admin: 01/21/21 21:10 Dose: 650 mg Documented by: [id number] Diphenhydramine HCl (Diphenhydramine 50 Mg/Ml Vial) 25 mg IV NOW STA Stop: 01/21/21 22:11 Last Admin: 01/21/21 22:16 Dose: 25 mg Documented by: [id number] Sodium Chloride (Nss 1000ml) 1,000 mls @ 999 mls/hr IV .Q1H1M DAVI Stop: 01/21/21 18:30 Last Infusion: 01/21/21 19:24 Dose: 0 mls/hr Documented by: [id number] Admin: 01/21/21 18:15 Dose: 999 mls/hr Documented by: [id number] Acetaminophen (Ofirmev) 1,000 mg in 100 mls @ 400 mls/hr IV NOW STA Stop: 01/21/21 18:07 Last Infusion: 01/21/21 18:30 Dose: 0 mls/hr Documented by: [id number] Admin: 01/21/21 18:15 Dose: 400 mls/hr Documented by: [id number] Sodium Chloride (Nss 1000ml) 1,000 mls @ 999 mls/hr IV .Q1H1M ONE Stop: 01/21/21 18:53 Last Infusion: 01/21/21 19:24 Dose: 0 mls/hr Documented by: [id number] Admin: 01/21/21 18:14 Dose: 999 mls/hr Documented by: [id number] Cefepime HCl (Maxipime) 2,000 mg in 20 mls @ 5 mls/min IV NOW STA; Protocol Stop: 01/21/21 19:13 Last Admin: 01/21/21 20:03 Dose: 5 mls/min Documented by: [id number] Sodium Chloride (Nss 1000ml) 1,000 mls @ 999 mls/hr IV .Q1H1M ONE Stop: 01/21/21 23:01 Last Infusion: 01/21/21 23:05 Dose: 0 mls/hr Documented by: [id number] Admin: 01/21/21 22:10 Dose: 999 mls/hr Documented by: [id number] Critical Care Time Critical Care Time: Yes Total Critical Care Time: 55 I have personally spent greater than 55 minutes of critical care time in the direct management of this patient. This includes bedside care, interpretation of diagnostic studies, and testing, discussion with consultants, patient, and fa kinza members, and other required patient management activities. This 55 minutes is in excess of all separately billable procedures. Medical Decision Making Laboratory Data Result diagrams: 01/21/21 17:56 01/21/21 17:56 Lab Results 01/21/21 01/21/21 01/21/21 Range/Units 17:56 17:56 17:56 WBC 0.13 L* (4.8-10.8) K/uL RBC 2.43 L (4.2-5.4) M/uL Hgb 6.5 L* (12.0-16.0) g/dL Hct 19.9 L* (37-47) % MCV 81.9 (80-100) fL MCH 26.7 (25-34) pg MCHC 32.7 (32-36) g/dL RDW Std Deviation 60.8 H (36.4-46.3) fL RDW Coeff of Roxie 20.5 H (11.5-14.5) % Plt Count 168 (130-400) K/uL MPV 8.8 (7.4-10.4) fL Immature Gran % (Auto) Cancelled Neut % (Auto) Cancelled Lymph % (Auto) Cancelled [place]ima % (Auto) Cancelled Eos % (Auto) Cancelled Baso % (Auto) Cancelled Neut # (Auto) Cancelled Lymph # (Auto) Cancelled [place] # (Auto) Cancelled Eos # (Auto) Cancelled Baso # (Auto) Cancelled Immature Gran # (Auto) Cancelled Neutrophils % (Manual) Cancelled Band Neutrophils % Cancelled Lymphocytes % (Manual) Cancelled Prolymphocyte % Cancelled Reactive Lymphs % (Man) Cancelled Monocytes % (Manual) Cancelled Eosinophils % (Manual) Cancelled Basophils % (Manual) Cancelled Metamyelocytes % (Man) Cancelled Myelocytes % (Man) Cancelled Promyelocytes % (Man) Cancelled Blast Cells % (Manual) Cancelled Plasma Cell % (Manual) Cancelled Other Cells % Cancelled Nucleated RBC % Cancelled Neutrophils # (Manual) Cancelled Band Neutrophils # Cancelled Total Absolute Neuts Cancelled Lymphocytes # (Manual) Cancelled Prolymphocyte # Cancelled Reactive Lymphs # Cancelled Total Abs Lymphocytes Cancelled Monocytes # (Manual) Cancelled Eosinophils # (Manual) Cancelled Basophils # (Manual) Cancelled Metamyelocytes # (Man) Cancelled Myelocytes # (Manual) Cancelled Promyelocytes # (Man) Cancelled Blast Cells # (Man) Cancelled Plasma Cell # (Manual) Cancelled Other Cells # Cancelled Nucleated RBCs # (Man) Cancelled Hypersegmented Neuts Cancelled Hyposegmented Neuts Cancelled Hypogranular Neuts Cancelled Large Granular Lymphs Cancelled # Lrg Granular Lymphs Cancelled Hairy Cells Cancelled Smudge Cells Cancelled Toxic Granulation Cancelled Toxic Vacuolation Cancelled Dohle Bodies Cancelled Karis Rods Cancelled Hypogranular Platelets Cancelled Clumped Platelets Cancelled Giant Platelets Cancelled Platelet Satelliting Cancelled RBC Morphology Cancelled Polychromasia Cancelled Hypochromasia Cancelled Poikilocytosis Cancelled Basophilic Stippling Cancelled Anisocytosis Cancelled Microcytosis Cancelled Macrocytosis Cancelled Spherocytes Cancelled Pappenheimer Bodies Cancelled Sickle Cells Cancelled Target Cells Cancelled Tear Drop Cells Cancelled Ovalocytes Cancelled Stomatocytes Cancelled [place] Bodies Cancelled Echinocytes Cancelled Acanthocytes (Spur) Cancelled Rouleaux Cancelled RBC Agglutinates Cancelled Schistocytes Cancelled RBC Morph Comment Cancelled Sezary Cell Cancelled PT (9.0-12.0) Seconds INR (0.9-1.1) APTT (21.0-31.0) Seconds PTT Ratio Sodium 130 L (136-145) mmol/L Potassium 4.0 (3.5-5.1) mmol/L Chloride 98 (98-107) mmol/L Carbon Dioxide 24 (21-32) mmol/L Anion Gap 8.0 (3-11) BUN 13 (7-18) mg/dl Creatinine 0.76 (0.6-1.2) mg/dl Est Cr Clr Drug Dosing 61.7 ml/min Est GFR ( Amer) 90.2 ml/min Est GFR (Non-Af Amer) 77.8 ml/min BUN/Creatinine Ratio 16.6 (10-20) Glucose 128 H (70-99) mg/dl Lactate (0.4-2.0) mmol/L Calcium 8.2 L (8.5-10.1) mg/dl Magnesium 2.3 (1.8-2.4) mg/dl Total Bilirubin 1.9 H (0.2-1) mg/dl AST 79 H (15-37) U/L ALT 79 H (12-78) U/L Alkaline Phosphatase 260 H (45-117) U/L Troponin I < 0.015 (0-0.045) ng/ml Total Protein 6.0 L (6.4-8.2) gm/dl Albumin 2.8 L (3.4-5.0) gm/dl Globulin 3.2 (2.5-4.0) gm/dl Albumin/Globulin Ratio 0.9 (0.9-2) Procalcitonin 0.52 H (0-0.5) ng/ml Urine Color Urine Appearance (Clear) Urine pH (4.5-7.5) Ur Specific Kimball (1.000-1.030) Urine Protein (Negative) Urine Glucose (UA) (Negative) Urine Ketones (Negative) Urine Blood (Negative) Urine Nitrite (Negative) Urine Bilirubin (Negative) Urine Urobilinogen (Negative) Ur Leukocyte Esterase (Negative) Urine WBC (Auto) (0-5) /hpf Urine RBC (Auto) (0-4) /hpf U Hyaline Cast (Auto) (0-5) /lpf U Epithel Cells (Auto) (0-5) /lpf Urine Bacteria (Auto) (Negative) COVID-19 Eval Order SARS-CoV-2 (PCR) (Negative) Blood Type Blood Type Recheck Antibody Screen Crossmatch 01/21/21 01/21/21 01/21/21 Range/Units 17:56 17:56 19:15 WBC (4.8-10.8) K/uL RBC (4.2-5.4) M/uL Hgb (12.0-16.0) g/dL Hct (37-47) % MCV (80-100) fL MCH (25-34) pg MCHC (32-36) g/dL RDW Std Deviation (36.4-46.3) fL RDW Coeff of Roxie (11.5-14.5) % Plt Count (130-400) K/uL MPV (7.4-10.4) fL Immature Gran % (Auto) Neut % (Auto) Lymph % (Auto) [place] % (Auto) Eos % (Auto) Baso % (Auto) Neut # (Auto) Lymph # (Auto) [place] # (Auto) Eos # (Auto) Baso # (Auto) Immature Gran # (Auto) Neutrophils % (Manual) Band Neutrophils % Lymphocytes % (Manual) Prolymphocyte % Reactive Lymphs % (Man) Monocytes % (Manual) Eosinophils % (Manual) Basophils % (Manual) Metamyelocytes % (Man) Myelocytes % (Man) Promyelocytes % (Man) Blast Cells % (Manual) Plasma Cell % (Manual) Other Cells % Nucleated RBC % Neutrophils # (Manual) Band Neutrophils # Total Absolute Neuts Lymphocytes # (Manual) Prolymphocyte # Reactive Lymphs # Total Abs Lymphocytes Monocytes # (Manual) Eosinophils # (Manual) Basophils # (Manual) Metamyelocytes # (Man) Myelocytes # (Manual) Promyelocytes # (Man) Blast Cells # (Man) Plasma Cell # (Manual) Other Cells # Nucleated RBCs # (Man) Hypersegmented Neuts Hyposegmented Neuts Hypogranular Neuts Large Granular Lymphs # Lrg Granular Lymphs Hairy Cells Smudge Cells Toxic Granulation Toxic Vacuolation Dohle Bodies Karis Rods Hypogranular Platelets Clumped Platelets Giant Platelets Platelet Satelliting RBC Morphology Polychromasia Hypochromasia Poikilocytosis Basophilic Stippling Anisocytosis Microcytosis Macrocytosis Spherocytes Pappenheimer Bodies Sickle Cells Target Cells Tear Drop Cells Ovalocytes Stomatocytes [place] Bodies Echinocytes Acanthocytes (Spur) Rouleaux RBC Agglutinates Schistocytes RBC Morph Comment Sezary Cell PT 11.2 (9.0-12.0) Seconds INR 1.1 (0.9-1.1) APTT 33.1 H (21.0-31.0) Seconds PTT Ratio 1.3 Sodium (136-145) mmol/L Potassium (3.5-5.1) mmol/L Chloride (98-107) mmol/L Carbon Dioxide (21-32) mmol/L Anion Gap (3-11) BUN (7-18) mg/dl Creatinine (0.6-1.2) mg/dl Est Cr Clr Drug Dosing ml/min Est GFR ( Amer) ml/min Est GFR (Non-Af Amer) ml/min BUN/Creatinine Ratio (10-20) Glucose (70-99) mg/dl Lactate 1.3 (0.4-2.0) mmol/L Calcium (8.5-10.1) mg/dl Magnesium (1.8-2.4) mg/dl Total Bilirubin (0.2-1) mg/dl AST (15-37) U/L ALT (12-78) U/L Alkaline Phosphatase (45-117) U/L Troponin I (0-0.045) ng/ml Total Protein (6.4-8.2) gm/dl Albumin (3.4-5.0) gm/dl Globulin (2.5-4.0) gm/dl Albumin/Globulin Ratio (0.9-2) Procalcitonin (0-0.5) ng/ml Urine Color Urine Appearance (Clear) Urine pH (4.5-7.5) Ur Specific Kimball (1.000-1.030) Urine Protein (Negative) Urine Glucose (UA) (Negative) Urine Ketones (Negative) Urine Blood (Negative) Urine Nitrite (Negative) Urine Bilirubin (Negative) Urine Urobilinogen (Negative) Ur Leukocyte Esterase (Negative) Urine WBC (Auto) (0-5) /hpf Urine RBC (Auto) (0-4) /hpf U Hyaline Cast (Auto) (0-5) /lpf U Epithel Cells (Auto) (0-5) /lpf Urine Bacteria (Auto) (Negative) COVID-19 Eval Order Covid19 at [facility] SARS-CoV-2 (PCR) (Negative) Blood Type Blood Type Recheck Antibody Screen Crossmatch 01/21/21 01/21/21 01/21/21 Range/Units 19:15 20:21 20:32 WBC (4.8-10.8) K/uL RBC (4.2-5.4) M/uL Hgb (12.0-16.0) g/dL Hct (37-47) % MCV (80-100) fL MCH (25-34) pg MCHC (32-36) g/dL RDW Std Deviation (36.4-46.3) fL RDW Coeff of Roxie (11.5-14.5) % Plt Count (130-400) K/uL MPV (7.4-10.4) fL Immature Gran % (Auto) Neut % (Auto) Lymph % (Auto) [place] % (Auto) Eos % (Auto) Baso % (Auto) Neut # (Auto) Lymph # (Auto) [place] # (Auto) Eos # (Auto) Baso # (Auto) Immature Gran # (Auto) Neutrophils % (Manual) Band Neutrophils % Lymphocytes % (Manual) Prolymphocyte % Reactive Lymphs % (Man) Monocytes % (Manual) Eosinophils % (Manual) Basophils % (Manual) Metamyelocytes % (Man) Myelocytes % (Man) Promyelocytes % (Man) Blast Cells % (Manual) Plasma Cell % (Manual) Other Cells % Nucleated RBC % Neutrophils # (Manual) Band Neutrophils # Total Absolute Neuts Lymphocytes # (Manual) Prolymphocyte # Reactive Lymphs # Total Abs Lymphocytes Monocytes # (Manual) Eosinophils # (Manual) Basophils # (Manual) Metamyelocytes # (Man) Myelocytes # (Manual) Promyelocytes # (Man) Blast Cells # (Man) Plasma Cell # (Manual) Other Cells # Nucleated RBCs # (Man) Hypersegmented Neuts Hyposegmented Neuts Hypogranular Neuts Large Granular Lymphs # Lrg Granular Lymphs Hairy Cells Smudge Cells Toxic Granulation Toxic Vacuolation Dohle Bodies Karis Rods Hypogranular Platelets Clumped Platelets Giant Platelets Platelet Satelliting RBC Morphology Polychromasia Hypochromasia Poikilocytosis Basophilic Stippling Anisocytosis Microcytosis Macrocytosis Spherocytes Pappenheimer Bodies Sickle Cells Target Cells Tear Drop Cells Ovalocytes Stomatocytes [place] Bodies Echinocytes Acanthocytes (Spur) Rouleaux RBC Agglutinates Schistocytes RBC Morph Comment Sezary Cell PT (9.0-12.0) Seconds INR (0.9-1.1) APTT (21.0-31.0) Seconds PTT Ratio Sodium (136-145) mmol/L Potassium (3.5-5.1) mmol/L Chloride (98-107) mmol/L Carbon Dioxide (21-32) mmol/L Anion Gap (3-11) BUN (7-18) mg/dl Creatinine (0.6-1.2) mg/dl Est Cr Clr Drug Dosing ml/min Est GFR ( Amer) ml/min Est GFR (Non-Af Amer) ml/min BUN/Creatinine Ratio (10-20) Glucose (70-99) mg/dl Lactate (0.4-2.0) mmol/L Calcium (8.5-10.1) mg/dl Magnesium (1.8-2.4) mg/dl Total Bilirubin (0.2-1) mg/dl AST (15-37) U/L ALT (12-78) U/L Alkaline Phosphatase (45-117) U/L Troponin I (0-0.045) ng/ml Total Protein (6.4-8.2) gm/dl Albumin (3.4-5.0) gm/dl Globulin (2.5-4.0) gm/dl Albumin/Globulin Ratio (0.9-2) Procalcitonin (0-0.5) ng/ml Urine Color Urine Appearance (Clear) Urine pH (4.5-7.5) Ur Specific Kimball (1.000-1.030) Urine Protein (Negative) Urine Glucose (UA) (Negative) Urine Ketones (Negative) Urine Blood (Negative) Urine Nitrite (Negative) Urine Bilirubin (Negative) Urine Urobilinogen (Negative) Ur Leukocyte Esterase (Negative) Urine WBC (Auto) (0-5) /hpf Urine RBC (Auto) (0-4) /hpf U Hyaline Cast (Auto) (0-5) /lpf U Epithel Cells (Auto) (0-5) /lpf Urine Bacteria (Auto) (Negative) COVID-19 Eval Order SARS-CoV-2 (PCR) NEGATIVE (Negative) Blood Type A Positive Blood Type Recheck A Positive Antibody Screen NEGATIVE Crossmatch See Detail 01/21/21 Range/Units 20:40 WBC (4.8-10.8) K/uL RBC (4.2-5.4) M/uL Hgb (12.0-16.0) g/dL Hct (37-47) % MCV (80-100) fL MCH (25-34) pg MCHC (32-36) g/dL RDW Std Deviation (36.4-46.3) fL RDW Coeff of Roxie (11.5-14.5) % Plt Count (130-400) K/uL MPV (7.4-10.4) fL Immature Gran % (Auto) Neut % (Auto) Lymph % (Auto) [place] % (Auto) Eos % (Auto) Baso % (Auto) Neut # (Auto) Lymph # (Auto) [place] # (Auto) Eos # (Auto) Baso # (Auto) Immature Gran # (Auto) Neutrophils % (Manual) Band Neutrophils % Lymphocytes % (Manual) Prolymphocyte % Reactive Lymphs % (Man) Monocytes % (Manual) Eosinophils % (Manual) Basophils % (Manual) Metamyelocytes % (Man) Myelocytes % (Man) Promyelocytes % (Man) Blast Cells % (Manual) Plasma Cell % (Manual) Other Cells % Nucleated RBC % Neutrophils # (Manual) Band Neutrophils # Total Absolute Neuts Lymphocytes # (Manual) Prolymphocyte # Reactive Lymphs # Total Abs Lymphocytes Monocytes # (Manual) Eosinophils # (Manual) Basophils # (Manual) Metamyelocytes # (Man) Myelocytes # (Manual) Promyelocytes # (Man) Blast Cells # (Man) Plasma Cell # (Manual) Other Cells # Nucleated RBCs # (Man) Hypersegmented Neuts Hyposegmented Neuts Hypogranular Neuts Large Granular Lymphs # Lrg Granular Lymphs Hairy Cells Smudge Cells Toxic Granulation Toxic Vacuolation Dohle Bodies Karis Rods Hypogranular Platelets Clumped Platelets Giant Platelets Platelet Satelliting RBC Morphology Polychromasia Hypochromasia Poikilocytosis Basophilic Stippling Anisocytosis Microcytosis Macrocytosis Spherocytes Pappenheimer Bodies Sickle Cells Target Cells Tear Drop Cells Ovalocytes Stomatocytes [place] Bodies Echinocytes Acanthocytes (Spur) Rouleaux RBC Agglutinates Schistocytes RBC Morph Comment Sezary Cell PT (9.0-12.0) Seconds INR (0.9-1.1) APTT (21.0-31.0) Seconds PTT Ratio Sodium (136-145) mmol/L Potassium (3.5-5.1) mmol/L Chloride (98-107) mmol/L Carbon Dioxide (21-32) mmol/L Anion Gap (3-11) BUN (7-18) mg/dl Creatinine (0.6-1.2) mg/dl Est Cr Clr Drug Dosing ml/min Est GFR ( Amer) ml/min Est GFR (Non-Af Amer) ml/min BUN/Creatinine Ratio (10-20) Glucose (70-99) mg/dl Lactate (0.4-2.0) mmol/L Calcium (8.5-10.1) mg/dl Magnesium (1.8-2.4) mg/dl Total Bilirubin (0.2-1) mg/dl AST (15-37) U/L ALT (12-78) U/L Alkaline Phosphatase (45-117) U/L Troponin I (0-0.045) ng/ml Total Protein (6.4-8.2) gm/dl Albumin (3.4-5.0) gm/dl Globulin (2.5-4.0) gm/dl Albumin/Globulin Ratio (0.9-2) Procalcitonin (0-0.5) ng/ml Urine Color Dark Yellow Urine Appearance Clear (Clear) Urine pH 5.5 (4.5-7.5) Ur Specific Kimball 1.018 (1.000-1.030) Urine Protein 1+ H (Negative) Urine Glucose (UA) Negative (Negative) Urine Ketones Trace H (Negative) Urine Blood 1+ H (Negative) Urine Nitrite Positive A (Negative) Urine Bilirubin Negative (Negative) Urine Urobilinogen Positive H (Negative) Ur Leukocyte Esterase Negative (Negative) Urine WBC (Auto) 1-5 (0-5) /hpf Urine RBC (Auto) 5-10 H (0-4) /hpf U Hyaline Cast (Auto) 1-5 (0-5) /lpf U Epithel Cells (Auto) >30 H (0-5) /lpf Urine Bacteria (Auto) 2+ H (Negative) COVID-19 Eval Order SARS-CoV-2 (PCR) (Negative) Blood Type Blood Type Recheck Antibody Screen Crossmatch Imaging Data Radiologist's Impression: Chest X-Ray 01/21/21 17:22 SINGLE VIEW CHEST CLINICAL HISTORY: Sepsis. FINDINGS: An AP, portable, upright chest radiograph is compared to study dated 12/12/2020 and correlated with chest CT dated 12/11/2020. The cardiomediastinal silhouette is unremarkable. There is a small left pleural effusion with left basilar atelectasis. The right lung appears clear. No pneumothorax is seen. The skeletal structures are osteopenic. The bony thorax is grossly intact. Surgical clips are noted in the left axilla. IMPRESSION: Small left pleural effusion with left basilar atelectasis. ACT 112: Negative or not required by law. Electronically signed by: Rubio Christian M.D. 01/21/2021 5:51 PM Abdomen/Pelvis CT 01/21/21 18:35 CT SCAN OF THE ABDOMEN AND PELVIS WITHOUT IV CONTRAST CLINICAL HISTORY: Dysuria. Flank pain. Fever. Sepsis. History of chronic lymphocytic leukemia. COMPARISON STUDY: Abdominal CT dated 10/26/2020. TECHNIQUE: CT scan of the abdomen and pelvis is performed from the lung bases to the proximal femora. Images are reviewed in the axial, sagittal, and coronal planes. IV contrast was not administered for this examination as per the refer ring clinician. Note that the examination was performed in suboptimal fashion without IV contrast. There is also mild motion artifact. A dose lowering technique was utilized adhering to the principles of ALARA. CT DOSE: 279.29 mGy.cm FINDINGS: Lung bases: The heart is normal in size and without pericardial effusion. There is a small left pleural effusion with associated atelectasis. Liver: The unenhanced liver is normal in size, contour, and attenuation. There is no intrahepatic biliary ductal dilatation. Gallbladder: Unremarkable. Spleen: The spleen is enlarged measuring 16.4 cm in length. Pancreas: The unenhanced pancreas is moderately atrophic and grossly unremarkable. Adrenal glands: Unremarkable. Kidneys: The unenhanced kidneys are atrophic and without hydronephrosis. There are no renal calculi identified. A 1.7 cm myelolipoma is again seen in the right kidney on image #181. Abdominal vasculature: The abdominal aorta is normal in course and caliber. Bowel: There is no bowel obstruction. Moderate fecal retention is seen throughout the colon. The appendix is not identified and reported surgically absent. Peritoneum: There is no intraperitoneal free air or abdominal ascites. Suture material is seen in the right lower quadrant. Infiltration throughout the mesentery is similar to previous. Lymphadenopathy: Numerous mildly enlarged mesenteric and retroperitoneal lymph nodes are likely unchanged from 10/26/2020. These are difficult to assess without IV contrast. A mesenteric node on image #215 measures at least 11 mm in short axis. A left periaortic node on image #192 measures at least 13 mm in short axis. Pelvic viscera: The bladder wall is thickened and there is pericystic inflammation. The uterus and adnexa are normal as visualized. There is an approximately 4 cm focus of loculated fluid within the left groin with surrounding induration. Skeletal structures: The skeletal structures are osteopenic. There is mild lumbosacral spondylosis and scoliosis. No lytic or blastic lesions are seen. IMPRESSION: 1. Findings are consistent with cystitis. Correlation with clinical findings and urinalysis. 2. Numerous mildly enlarged mesenteric and retroperitoneal lymph nodes are likely similar to previous, as is splenomegaly. This is consistent with reported history of chronic lymphocytic leukemia. 3. Small left pleural effusion with associated atelectasis. 4. There is an approximately 4 cm loculation of low-attenuation fluid in the left groin. This is indeterminant and may represent a seroma. Clinical correlation will be required. 5. Additional findings as above. ACT 112: Negative or not required by law. Electronically signed by: Rubio Christian M.D. 01/21/2021 8:03 PM ECG Data Indication: + other (sepsis) Rate (beats per minute): 110 Rhythm: + sinus tachycardia ECG Intervals/blocks: + Normal TX and + Normal QT-c ECG ST segments: + Normal ST segments Additional Comments: QRS 66 MDM Narrative 1715: The patient was evaluated in room C9. A complete history and physical exam was performed Cardiac monitoring: An order was placed for continuous cardiac monitoring. The monitor shows a rate of 110 with sinus tachycardia rhythm Sepsis protocols initiated. 1944: [facility] E[facility] was accessed via [facility]. Patient was neutropenic. Patient is leukopenic and anemic today. Spoke with Dr. Huang [facility] oncology who recommends admission for neutropenic fever, 1 unit packed red blood cells irradiated, no rectal exam. Cefepime ordered for neutropenic fever. Discussed with patient and at bedside who agree. 2030: CT consistent with cystitis. Lactic acid within normal limits. Patient will be admitted to the [facility] hospitalist team. Dr. Leone notified 2214: During blood transfusion been started the patient's temperature edwige and the patient's blood pressure began to drop ventricular tachycardia. Blood transfusion was stopped and Benadryl ordered for the patient.Contacted admitting team Dr. Leone who was made aware of this. Impression & Plan Anemia, Sepsis, Neutropenic fever Discharge Plan Visit Data Chief Complaint: Urinary Symptoms Stated Complaint: UTI ED Provider: Néstor Maier Discharge Problem: Anemia, Sepsis, Neutropenic fever Patient Disposition: Admitted As Inpatient Forms Stand Alone Forms: [facility] Prescriptions Prescriptions: No Action gabapentin 300 mg capsule 300 mg PO BID Qty: 60 RF: 2 simvastatin 20 mg tablet 20 mg PO HS RF: 0 ondansetron HCl 8 mg tablet 8 mg PO Q8 PRN (Reason: Nausea And Vomiting) RF: 0 acyclovir 400 mg tablet 400 mg PO BID RF: 0 levothyroxine 125 mcg tablet 125 mcg PO QAM RF: 0 hydrocodone-homatropine [Hydromet] 5-1.5 mg/5 mL syrup 5 ml PO QID PRN (Reason: Cough) RF: 0 oxycodone 5 mg tablet 5 mg PO Q4 PRN (Reason: Pain) RF: 0 allopurinol 300 mg tablet 300 mg PO DAILY RF: 0 Calquence 100 mg capsule 100 mg PO BID RF: 0 Referrals Referrals: Zeinab Mora PA-C [Outside Practitioners] -
[2021-01-21 18:28] LABS: INR 1.1 (0.9-1.1); Partial Thromboplastin Ratio 1.3; Partial Thromboplastin Time 33.1 Seconds (21.0-31.0); Prothrombin Time 11.2 Seconds (9.0-12.0)
[2021-01-21 18:31] LABS: Alanine Aminotransferase 79 U/L (12-78); Albumin Level 2.8 gm/dl (3.4-5.0); Aspartate Aminotransferase 79 U/L (15-37); BUN Creatinine Ratio 16.6 (10-20); Blood Urea Nitrogen 13 mg/dl (7-18); Calcium 8.2 mg/dl (8.5-10.1); Carbon Dioxide 24 mmol/L (21-32); Chloride 98 mmol/L (98-107); Creatinine Clr Calc Pharmacy 61.7 ml/min; Est GFR (African American) 90.2 ml/min; Est GFR (Non-African American) 77.8 ml/min; Glucose 128 mg/dl (70-99); Magnesium 2.3 mg/dl (1.8-2.4); Sodium 130 mmol/L (136-145)
[2021-01-21 18:35] LABS: Albumin Globulin Ratio 0.9 (0.9-2); Alkaline Phosphatase 260 U/L (45-117); Bilirubin,Total 1.9 mg/dl (0.2-1); Globulin 3.2 gm/dl (2.5-4.0); Troponin I < 0.015 ng/ml (0-0.045)
[2021-01-21 18:37] LABS: Hematocrit (blood only) 19.9 % (37-47); Hemoglobin 6.5 g/dL (12.0-16.0); Mean Corpuscular Hemoglobin 26.7 pg (25-34); Mean Corpuscular Hgb Conc 32.7 g/dL (32-36); Mean Corpuscular Volume 81.9 fL (80-100); Mean Platelet Volume 8.8 fL (7.4-10.4); Platelet Count 168 K/uL (130-400); RDW Coefficient of Variation 20.5 % (11.5-14.5); RDW Standard Deviation 60.8 fL (36.4-46.3); Red Blood Count 2.43 M/uL (4.2-5.4); White Blood Count 0.13 K/uL (4.8-10.8)
[2021-01-21] MEDS ORDERED: CEFEPIME 2,000 MG/20 ML VIAL IV STA (19:10)
[2021-01-21] MEDS ORDERED: SODIUM CHLORIDE 0.9% 250 ML IV PRN (19:30)
--- NOTE | 2021-01-21 20:05 | CT Scan Report ---
CT SCAN OF THE ABDOMEN AND PELVIS WITHOUT IV CONTRAST CLINICAL HISTORY: Dysuria. Flank pain. Fever. Sepsis. History of chronic lymphocytic leukemia. COMPARISON STUDY: Abdominal CT dated 10/26/2020. TECHNIQUE: CT scan of the abdomen and pelvis is performed from the lung bases to the proximal femora. Images are reviewed in the axial, sagittal, and coronal planes. IV contrast was not administered for this examination as per the referring clinician. Note that the examination was performed in suboptim al fashion without IV contrast. There is also mild motion artifact. A dose lowering technique was uti lized adhering to the principles of ALARA. CT DOSE: 279.29 mGy.cm FINDINGS: Lung bases: The heart is normal in size and without pericardial effusion. There is a small left pleur al effusion with associated atelectasis. Liver: The unenhanced liver is normal in size, contour, and attenuation. There is no intrahepatic kiersten iary ductal dilatation. Gallbladder: Unremarkable. Spleen: The spleen is enlarged measuring 16.4 cm in length. Pancreas: The unenhanced pancreas is moderately atrophic and grossly unremarkable. Adrenal glands: Unremarkable. Kidneys: The unenhanced kidneys are atrophic and without hydronephrosis. There are no renal calculi i dentified. A 1.7 cm myelolipoma is again seen in the right kidney on image #181. Abdominal vasculature: The abdominal aorta is normal in course and caliber. Bowel: There is no bowel obstruction. Moderate fecal retention is seen throughout the colon. The appe ndix is not identified and reported surgically absent. Peritoneum: There is no intraperitoneal free air or abdominal ascites. Suture material is seen in the right lower quadrant. Infiltration throughout the mesentery is similar to previous. Lymphadenopathy: Numerous mildly enlarged mesenteric and retroperitoneal lymph nodes are likely uncha nged from 10/26/2020. These are difficult to assess without IV contrast. A mesenteric node on image #2 15 measures at least 11 mm in short axis. A left periaortic node on image #192 measures at least 13 m m in short axis. Pelvic viscera: The bladder wall is thickened and there is pericystic inflammation. The uterus and ad nexa are normal as visualized. There is an approximately 4 cm focus of loculated fluid within the lef t groin with surrounding induration. Skeletal structures: The skeletal structures are osteopenic. There is mild lumbosacral spondylosis an d scoliosis. No lytic or blastic lesions are seen. IMPRESSION: 1. Findings are consistent with cystitis. Correlation with clinical findings and urinalysis. 2. Numerous mildly enlarged mesenteric and retroperitoneal lymph nodes are likely similar to previous , as is splenomegaly. This is consistent with reported history of chronic lymphocytic leukemia. 3. Small left pleural effusion with associated atelectasis. 4. There is an approximately 4 cm loculation of low-attenuation fluid in the left groin. This is inde terminant and may represent a seroma. Clinical correlation will be required. 5. Additional findings as above. ACT 112: Negative or not required by law. Electronically signed by: Rubio Christian M.D. 01/21/2021 8:03 PM
[2021-01-21 20:53] LABS: Appearance Urine Clear (Clear); Bacteria Urine Automated 2+ (Negative); Bilirubin Urine Negative (Negative); Blood Urine 1+ (Negative); Color Urine Dark Yellow; Epithelial Cell Urine Auto >30 /lpf (0-5); Glucose Urine UA Negative (Negative); Ketones Urine Trace (Negative); Leukocyte Esterase Urine Negative (Negative); Nitrite Urine Positive (Negative); Protein Urine 1+ (Negative); Specific Gravity Urine 1.018 (1.000-1.030); Urobilinogen Urine Positive (Negative); pH Urine 5.5 (4.5-7.5)
[2021-01-21] MEDS ORDERED: ACETAMINOPHEN 325 MG TAB ONE (21:08)
[2021-01-21] MEDS ORDERED: CONSULT PHARMACY STA (21:49)
[2021-01-21] MEDS ORDERED: diphenhydrAMINE 50 MG/ML VIAL IV STA (22:10)
[2021-01-21] MEDS ORDERED: VANCOMYCIN HCL 1,000 MG in SODIUM CHLORIDE 0.9% 250 ML IV SCH (22:19)
[2021-01-21] MEDS ORDERED: VANCOMYCIN CONSULT ACTIVE PRN (22:19)
[2021-01-21] MEDS ORDERED: VANCOMYCIN HCL 1,500 MG in SODIUM CHLORIDE 0.9% 500 ML IV STA (22:25)
[2021-01-21] MEDS ORDERED: CONSULT PHARMACY PRN (22:29)
[2021-01-21] MEDS ORDERED: STAT IV Infusion **Titration per Protocol STA (23:23)
[2021-01-21] MEDS ORDERED: NOREPINEPHRINE/D5W 8 MG/508 ML IV ONE (23:23)
[2021-01-21] MEDS: NOREPINEPHRINE/D5W 8 MG/508 ML BAG IV SCH (23:30)
--- NOTE | 2021-01-21 23:40 | History and Physical Report ---
DATE OF ADMISSION: 01/21/2021. CHIEF COMPLAINT: Febrile neutropenia and urinary symptoms. HISTORY OF PRESENT ILLNESS: A 75-year-old female with past medical history significant for hypercholesterolemia, hypothyroidism, history of thrombophlebitis right tibial vein, angiomyolipoma of right kidney, recent diagnose of CLL, iron deficiency anemia, history of left breast cancer. The patient was recently started on acalabrutinib for CLL, but it was held because of low blood counts. Presents because of the last couple of days of urinary symptoms of burning pain while micturating. Started to have shaking chills over the last couple last couple of days and had temp spike in the ER. She was having T-max of 39.5, pulse in 130s, and her hemoglobin was 6.5, WBC was 0.13, platelets were 168. Sodium 130, total bilirubin 1.9. Urinalysis positive. SARS-CoV-2 PCR negative. In the ER, she was given cefepime. CT of abdomen and pelvis shows possible cystitis. The patient on exam was having chills and complains of burning micturition. Denies any headache. No blurred visions, no runny nose, no sore throat, no cough, no dysphagia, no chest pain, no shortness of breath, no nausea, no vomiting, no abdominal pain. Somewhat constipated. No swelling in the legs. ALLERGIES: NITROFURANTOIN, ENVIRONMENTAL DUST. PAST MEDICAL HISTORY: As mentioned above. PAST SURGICAL HISTORY: Left breast excision, removal of the groin lymph nodes in January 2021. MEDICATIONS: The patient is on acalabrutinib 100 mg p.o. b.i.d., acyclovir 400 mg p.o. b.i.d., allopurinol 300 mg p.o. daily, gabapentin 300 mg p.o. b.i.d., Hydromet 5 mL p.o. q.i.d. p.r.n., levothyroxine 125 mcg p.o. a.m., Zofran 8 mg p.o. q. 8 hours p.r.n., oxycodone 5 mg p.o. q. 4 hours p.r.n. simvastatin 20 mg p.o. at bedtime. FAMILY HISTORY: Significant for sister has cancer. SOCIAL HISTORY: . No smoking. Alcohol occasional. No drug use. REVIEW OF SYSTEMS: As per HPI. Rest of review of systems is negative. PHYSICAL EXAMINATION: GENERAL: The patient is of moderate build, not in acute distress. VITAL SIGNS: Temperature 39.5, pulse 130s, blood pressure 92/54, oxygen 98% on room air. HEENT: Pupils equal, round, and reactive to light. Oral mucosa moist. NECK: No JVD, no neck masses. CARDIOVASCULAR: S1 and S2 heard. Tachycardia. No murmurs. RESPIRATORY SYSTEM: Normal AP diameter. No accessory muscle use. No wheezing, no crackles. ABDOMEN: Soft, bowel sounds present, nontender, no distention. CENTRAL NERVOUS SYSTEM: Shaky, cranial nerves II-XII grossly intact, nonfocal. EXTREMITIES: No edema, no erythema. LABORATORY DATA: WBC 0.13, hemoglobin 6.5, hematocrit 19.9, platelets 168. PT 11.2, INR 1.1, APTT 33.1, sodium 130, potassium 4, chloride 98, bicarbonate 24, BUN 13, creatinine 0.7, serum glucose 128. Lactate 1.3, calcium 8.2, magnesium 2.3, total bilirubin 1.9, AST 79, ALT 79, alkaline phosphatase 260. Troponin I less than 0.015. Procalcitonin 0.52. Urinalysis, urine nitrite positive, +2 bacteria. SARS-CoV-2 PCR negative. IMAGING DATA: CT of the abdomen and pelvis without IV contrast shows consistent with cystitis, numerous mildly enlarged mesenteric and retroperitoneal lymph nodes, are likely similar to previous, as is splenomegaly, small left pleural effusion, approximately 4 cm loculation of low attenuation fluid in the left groin. This is indeterminate and may represent seroma. Chest x-ray, small left pleural effusion with left basilar atelectasis. EKG: Sinus tachycardia at a rate of 110, ST depression in anterior leads. ASSESSMENT AND PLAN: This is a 75-year-old female who presents with febrile neutropenia and sepsis. 1. Sepsis and febrile neutropenia: Most likely secondary to urinary tract infection. Will give aggressive fluids. Lactic acid is okay. ER gave IV cefepime, which we be continued, also had IV vancomycin. Follow the cultures. Initially planned for tele admission but soon after starting prbc transfusion patient temp spiked again and tachycardia worsened. blood transfusion was stopped and Benadryl was given. Ordered 1lt fluid bolus. Er ordered another litre bolus but Her tachycardia didn't improved and Systolic Blood pressure was dropping into 70's. At that time decided to start on Levophed drip and Transferred to ICU. As soon as patient was in ICU her condition further deteriorated requiring two pressors Levophed and vasopressin. She became confused and hypoxic for some time. Right IJ line was placed.Blood was redrawn. hb came as 5.5. Discussed with Oncology ok to give prbc transfusion. By this time patient somewhat stabilized. ICU attending checked bedside echo no right heart strain was found and no obvious dvt . Ordered irradiated blood(blood bank has only 4 irradiated blood ). Notified and he came to the hospital.Repeat labs showed platelets dropped to 85 and lactic acid came back at 5.5. To continue abx , fluid and pressors and follow cultures. Also seems to having DIC. No obvious bleeding noted.Patient is critical.Appreciate Critical acre help and management. 2. Anemia, most likely from the chemo, which is on hold.Transfusing PRBC as above, follow H and H. Follow Hemoccult. 3. Hyponatremia: Getting fluids. Follow the repeat labs in the a.m. 4. CLL, on acalabrutinib, which is on hold. Follow up with heme/onc. 5. Hypothyroidism: Continue Synthroid. 6. Hyperlipidemia: Continue statin. 7. Gout: Continue allopurinol. 8. Elevated LFTs: Possibly from the ongoing illness. Will follow the repeat labs. 9. Deep venous thrombosis prophylaxis: Will place her on sequential compression devices for now. If Hemoccult comes negative, will place her on Lovenox. DISPOSITION:Patient is in critical condition. Closely monitor in the ICU. Level 1 full code. Job ID: [id number] [facility]
[2021-01-21] MEDS: SODIUM CHLORIDE 0.9% 1000ML 1,000 ML IV SCH (23:54)
[2021-01-22] MEDS: NOREPINEPHRINE/D5W 8 MG/508 ML BAG IV SCH ×4 (00:25→22:12)
[2021-01-22] MEDS ORDERED: oxyCODONE HCL IR 5 MG TAB (IMMEDIATE RELEASE) PO PRN (01:03)
[2021-01-22] MEDS ORDERED: ONDANSETRON INJ 2 MG/ML 2 ML VIAL IV PRN (01:03)
[2021-01-22] MEDS ORDERED: SODIUM CHLORIDE 0.9% 1000ML 1,000 ML IV SCH (01:03)
[2021-01-22] MEDS ORDERED: methylPREDNISolone 125 MG/2 ML VIAL ONE (01:03)
[2021-01-22] MEDS ORDERED: NITROGLYCERIN SL 0.4 MG/TAB TAB SL PRN (01:03)
[2021-01-22] MEDS ORDERED: ICU PROTOCOL FOR HYPERGLYCEMIA PRN (01:03)
[2021-01-22] MEDS ORDERED: ACETAMINOPHEN 325 MG TAB PO PRN (01:03)
[2021-01-22] MEDS ORDERED: ' PRN (01:05)
[2021-01-22] MEDS ORDERED: methylPREDNISolone 125 MG/2 ML VIAL IV STA (01:05)
[2021-01-22] MEDS ORDERED: STAT IV Infusion **Titration per Protocol STA ×2 (01:06→01:08)
[2021-01-22] MEDS ORDERED: VASOPRESSION #-# Do NOT Titrate #-# Option IV SCH (01:15)
[2021-01-22] MEDS ORDERED: ACETAMINOPHEN 1000 MG/100 ML IV IV ONE (01:15)
[2021-01-22] MEDS ORDERED: methylPREDNISolone 125 MG in SYRINGE 0 ML IV ONE (01:15)
[2021-01-22] MEDS: VASOPRESSIN 20 UNITS in 0.9 % SODIUM CHLORIDE 100 ML IV SCH ×3 (01:15→16:47)
[2021-01-22] MEDS ORDERED: PHENYLEPHRINE HCL 20 MG in DEXTROSE 5% 500 ML IV SCH (01:15)
[2021-01-22 01:36] LABS: Base Excess VBG -8.4 mEq/L; HCO3 VBG 17 mmol/L; PCO2 VBG 33 mmHg (38-50); PO2 VBG 22 mmHg; pH VBG 7.32 (7.36-7.41)
[2021-01-22 01:40] LABS: Oxygen Saturation VBG < 60.0 %
[2021-01-22 01:46] LABS: Hematocrit (blood only) 18.2 % (37-47); Hemoglobin 5.8 g/dL (12.0-16.0); Mean Corpuscular Hgb Conc 31.9 g/dL (32-36); Mean Corpuscular Volume 84.7 fL (80-100); Mean Platelet Volume 9.1 fL (7.4-10.4); Platelet Count 85 K/uL (130-400); RDW Coefficient of Variation 21.1 % (11.5-14.5); RDW Standard Deviation 63.8 fL (36.4-46.3); Red Blood Count 2.15 M/uL (4.2-5.4); White Blood Count 0.12 K/uL (4.8-10.8)
--- NOTE | 2021-01-22 01:50 | Critical Care Consultation ---
Date of Consultation January 22, 2021 Assessment & Plan (1) Admitted to intensive care unit: Reason Critically Ill: 75-year-old female with CLL on oral chemotherapy presenting with neutropenic fever in the setting of confirmed UTI. Severe sepsis with septic shock likely secondary to urinary source. Complicated in the neutropenic patient who is also anemic and requiring blood products. Per records and conversation with hospitalist, the patient was initially admitted to the telemetry floor as she had been tolerating fluid resuscitation well and had received appropriate crystalloid boluses. Unfortunately, after administration of initial unit of blood, the patient had developed tachycardia and hypotension. Patient had received Benadryl in the emergency department. Unfortunately, the patient was started on Levophed secondary to ongoing hypotension. At this point, hospitalist did reach out to the ICU to evaluate the patient for admission and ongoing management. In conversation with nursing staff, unfortunately, she initially had to function IV sites, however she infiltrated 1 and they were able to place a second 20-gauge peripheral site. During my bedside assessment, the patient had escalated her vasopressor requirement to 0.13 mcg/kg/min. I did have an extensive conversation with the patient at bedside given my concerns for pressor requirement as well as need for central venous access as she was requiring blood products and multiple antibiotics as well as fluids and other medications. Patient understands the acuity and need for these procedures. She did verbally consent the setting of emergent consent. She also was able to sign consent to central line and arterial line placement. I did defer placement of central line and arterial lines in the ED as the patient had already received bed placement in room 104 and she was to be transferred immediately to the room. I had already communicated with nursing staff and procedure kits were present at bedside for arterial line and central line placements. Upon arrival in the ICU, I had previously placed orders for repeat H&H as well as repeat PRP and random cortisol levels. Intent was to perform arterial line placement first to be able to obtain H&H after she had received 3 L of crystalloid in the setting of anemia. Afterwards, plan was for central line placement for access. Unfortunately, nearly immediately after arriving in the ICU, the patient began developing hypoxia. Previously she was on room air alone. Unfortunately, she is now requiring oxygen mask as her saturations have plummeted into the mid to low 80s. The patient does not appear overtly tachypneic. Additionally, the patient was noted to develop profound hypotension with systolic blood pressures in the 50s. She had a brief episode where she was near unresponsive to stimuli. Thankfully, we were able to titrate up pressors quickly and change procedures to central line placement as she was immediately requiring central venous access. During this, I did provide verbal orders to nursing staff for addition of vasopressin as well as for lab orders to include coagulopathy work-up as I was concerned for possible bleeding dyscrasia in the associated setting of transfusion reaction and chest x-ray to be obtained after central line placement. Additionally, given the abrupt change and concerns for multifactorial type decompensation, I did reach out to my attending physician to discuss the case prior to performing procedures. During this discussion, it was agreed the patient will receive steroids intravenously. Thankfully, the additional vasopressors improve the patient's mentation. Her oxygen saturations improved as well. Central line was placed. Please see separate note. Upon completion of central line, chest x-ray was obtained and reviewed by myself and my attending physician who had presented at bedside as well. Chest x-ray demonstrates development of bilateral pulmonary edema concerning for transfusion related lung injury in the setting of transfusion-like reaction. Thankfully, the patient's oxygen requirements were titrated down to 6 L nasal cannula after central line placement. Vasopressors were stabilized. Initiation of transfusion of 1 unit PRBC was confirmed with oncology by my hospitalist colleague. We will transfuse the patient slowly at first and assess for any transfusion related reactions and intervene if necessary. Unfortunately, the patient is in extremis and requiring both transfusion of blood products as well as significant bouts of pressors for hemodynamic stability. Patient's did present at bedside and we were able to provide update as to change in statu s. At this point, we will continue to address issues as they arise and hope to correct underlying causes. NEURO - * CAM ICU: NEGATIVE CARDIAC/VASCULAR - * Hypotension: * Likely most related to sepsis syndrome, unfortunately, there may also be component of low blood volume contributing as well. * Patient received appropriate crystalloid boluses. * Agree with Levophed. * Now requiring Vasopressin as well. * Continue w/ IVF in the setting of sepsis. * Will need PRBC transfusion. * Monitor on telemetry. RESPIRATORY - * Acute Hypoxia: * Patient noted to acutely desaturate upon arrival in the ICU. She had previously been on room air alone with normal saturations. Unfortunately, the patient was noted to develop oxygen saturations in the mid to low 80s on room air. On assessment at bedside, the patient is not tachypneic, thankfully. Unfortunately, she is requiring a 15 L Oxymizer to maintain oxygen saturations in the high 90s. I do agree with maintaining higher oxygen saturations in the profoundly anemic patient. * Chest x-ray that was obtained after IJ placement demonstrates development of pulmonary edema pattern. Unfortunately, in the setting of concerns for recent transfusion reaction, the patient may certainly be experiencing a transfusion associated lung injury. * Will provide supplemental oxygen for now as the patient does not clinically appear tachypneic and is saturating well and has been titrated down to 6 L nasal cannula. * Would initially proceed with noninvasive positive pressure ventilation, but patient certainly may require intubation if her lung injury were to worsen. * Would consider addition of Lasix, however patient's blood pressures are not amendable at this point. * My attending physician did present at bedside and performed bedside lung exam and heart exam. Thankfully, it was felt as though the chamber of the RIGHT heart did appear to be appropriate and without signs of strain. Lung exam findings demonstrated no significant areas of fluid. Will defer to his evaluation of this, however. GI/NUTRITION - * N.p.o. in the setting of acuity of illness and need for high-dose pressors. * Prophylaxis: Famotidine RENAL/LYTES - * Hyponatremia: * Of uncertain etiology at this point. * Received appropriate amounts of crystalloid. * Continue to monitor. * IVF: Normosol at 125 mL's per hour. - * Cystitis with UTI: * Urine cultures pending. * Continue with cefepime and vancomycin. * Coffey in place - Strict I&Os. ENDO - * No history of diabetes. * BSGs per unit protocol. ISS --> gtt per unit policy. * Hypothyroidism: * Continue with home dose of levothyroxine. * May consider transition to IV appropriate dosing if patient remains n.p.o. HEME - * Anemia: * Likely secondary to chemotherapeutic agent. * Unfortunately, patient had likely transfusion reaction during initial unit of PRBCs. * Repeat H&H upon arrival in the ICU demonstrates drop in H&H representing likely delusional component status post fluid resuscitation. * Hospitalist did reach out to oncology, patient will require transfusion. * Irradiated blood was assessed and transfusion will be initiated slowly with titration up as tolerated. * Neutropenia: * Again, secondary to chemotherapeutic agent. * Unfortunately, the patient presented with profound neutropenia and anemia in the setting of recent chemotherapy. Patient is obviously significantly ill at baseline and significantly immunocompromise as well. Given the rapid decline in patient's symptoms with associated fevers, rigors, tachycardia, hypotension, I am concerned for possibility of bacteremia as well. Blood cultures are pending. * During patient's episode of decompensation with poor oxygenation, I immediately was concern for possibility of underlying coagulopathy, particularly in the setting of transfusion reaction. Because of this, verbal orders were given for orders to be placed for DIC work-up. Unfortunately, in the bone marrow suppressed the patient from chemotherapeutics and now with severe sepsis, I am concerned with her potential for developing worsening DIC and associated outcomes. ID - * Severe sepsis with septic shock: * Secondary to urinary source. * Concerning in the neutropenic patient. * Blood and urine cultures pending. * Receiving cefepime and vancomycin. * Procalcitonin elevated. * Lactate initially not elevated. LINES/IV ACCESS - * PIVs x2 * RIGHT IJ CVL * RIGHT radial arterial line * Coffey catheter DVT PROPHYLAXIS - * Hold on chemoprophylaxis in the setting of profound anemia * SCDs CODE STATUS - * Patient is listed as full code in conversations with hospitalist. * Admittedly, given the rapid change in patient's clinical scenario, I was unable to have a candid discussion with patient regarding CODE STATUS and wishes. Thankfully, we were able to intervene and stabilize patient to this point. I did have a lengthy conversation with the patient's at bedside and discussed multifactorial contribution of her decline including CLL, presenting neutropenia with likely progression to pancytopenia, severe sepsis with likely bacteremia, etc. I am generally concerned given the multiple issues at hand that the patient very well may continue to decompensate given the insult to her body. Thankfully, we have achieved a current steady state with 2 pressors, fluids, and transfusions. I will defer ongoing CODE STATUS discussions given the patient's ongoing clinical impr ovement/decline. I have personally spent 85 minutes of critical care time in the direct management of this patient. This is a life/limb threatening event. This includes time spent evaluating patient, direct bedside care, chart review, placing orders, interpretation of diagnostic studies, discussion with consultants, patient, and family members, as well as other required patient management activities. This time is exclusive of all separately billable procedures, and teaching time and separate from and in addition to any other critical care service time. Thank you for allowing us to participate in the care of this patient. Please refer to my attending physician's documentation for any further recommendations. (2) Severe sepsis with septic shock: (3) Anemia: (4) Neutropenic fever: (5) Blood transfusion reaction: (6) Hypotension: (7) Tachycardia: (8) CLL (chronic lymphocytic leukemia): (9) Dyslipidemia: (10) Hypothyroidism: Supervising Physician Co-Signing Physician Notes Patient has received 2 units of packed red blood cells without significant reaction. I believe her possible transfusion reaction was actually humeral immune response to gram-negative sepsis after antibiotic administration. History of Present Illness Attending Physician: Roly Osullivan MD History of Present Illness Patient is a 75-year-old female with a significant past medical history of hyperlipidemia, hypothyroidism, remote history of breast cancer, recent diagnosis of CLL, LEFT pleural effusion who presented to the emergency department today with fevers, chills, nausea, vomiting, and dysuria. Her symptoms have been ongoing for approximately 48 hours. Patient's history is complicated by recent history of CLL diagnosis for which she was on oral acalabrutinib. Unfortunately, this had to be discontinued secondary to drops in her blood counts. The patient presented to the emergency department febrile and tachycardic. Blood pressures are marginal. She received weight appropriate boluses of IV crystalloid. Unfortunately, the patient was found to be profoundly anemic with a hemoglobin of 6.2 and hematocrit of 19.9. Patient is neutropenic as well. She received broad-spectrum antibiotics with cefepime and vancomycin. Blood cultures were obtained. Oncology was consulted and they agreed with transfusion of PRBCs. Unfortunately, nearly immediately after starting transfusion, the patient developed tachycardia with profound hypotension. Patient was suspected of transfusion reaction. She received IV Benadryl and was subsequently placed on Levophed for continued worsening hypo tension. Initially, the patient was to be admitted to telemetry, however I was approached by hospitalist with concern for worsening state of illness requiring intensive care unit evaluation and monitoring. Upon evaluation in the emergency department, the patient is ill-appearing and tired, but she remains awake, alert, and oriented. She is rigorous with fever in excess of 39 C. She was requiring high levels of Levophed at 0.13 mcg/kg/min as well as ongoing fluid. During assessment, the patient complains of low back pain which she attributes to laying in the litter. She denies any numbness or weakness of her lower extremities. No loss of control bowel/bladder. The patient reports having ongoing dysuria as well as chills and fevers at home. Otherwise, she denies complaints of headaches, dizziness, lightheadedness, blurry vision, double vision, chest pain, palpitations, shortness of breath, pleuritic pain, or abdominal discomfort. Allergies Allergy/AdvReac Type Severity Reaction Status Date / Time nitrofurantoin Allergy Intermediate SWELLING Verified 01/21/21 17:30 Home Medications Medication Instructions Recorded Confirmed Type simvastatin 20 mg tablet 20 mg PO HS 05/16/20 01/21/21 History gabapentin 300 mg capsule 300 mg PO BID #60 cap 10/22/20 01/21/21 Rx acalabrutinib 100 mg capsule 100 mg PO BID 01/21/21 01/21/21 History ([place]) acyclovir 400 mg tablet 400 mg PO BID 01/21/21 01/21/21 History allopurinol 300 mg tablet 300 mg PO DAILY 01/21/21 01/21/21 History hydrocodone-homatropine 5 mg-1.5 5 ml PO QID PRN 01/21/21 01/21/21 History mg/5 mL oral syrup (Hydromet) levothyroxine 125 mcg tablet 125 mcg PO QAM 01/21/21 01/21/21 History ondansetron HCl 8 mg tablet 8 mg PO Q8 PRN 01/21/21 01/21/21 History oxycodone 5 mg tablet 5 mg PO Q4 PRN 01/21/21 01/21/21 History Patient History Medical History BPPV (benign paroxysmal positional vertigo) HX Chronic osteoarthritis CLL (chronic lymphocytic leukemia) DX'D 03/2018-F/U [facility] Dyslipidemia Hypothyroidism Surgical History Hx of appendectomy Hx of breast surgery LUMPECTOMY-LEFT 25 YRS AGO Hx of colonoscopy Hx of exploratory laparotomy Hx of rhinoplasty Family History Aunt Breast cancer Father Heart disease Myocardial infarction Family history of diabetes mellitus Mother Stroke Daughter Celiac disease Denies family history of Ovarian cancer Prostate cancer Diabetes Alzheimer disease Dementia Lung cancer Colorectal cancer Social History Smoking Status: Never smoker Second Hand Exposure: No; Do You Dip or Chew Tobacco: No; Hx Alcohol Use: No Hx Substance Use: No Preferred Language: Slovenian Communication Ability: Effective Assembler Adjuster Required: No Beliefs That Will Affect Care: None Current Living Situation: Spouse current occupational status: retired current occupation: ungrad administion at [employer] Feels Safe at Home: Yes Safety Concerns: Feels Safe At This Time Childhood Exposure to Second-Hand Smoke: No caffeine: Yes during the past year weight has: remained stable Dental Care, Regularly: Yes Physical Activity Frequency: Daily Seatbelt Use: always Sunscreen Use: Yes Assistive Devices: Glasses Review of Systems Review of Systems: A complete 10 point review of systems was reviewed with the patient with pertinent positives and negatives as per history of present illness. All else were negative. Physical Exam Physical Exam: VITAL SIGNS - Vital signs and nursing notes were reviewed. GENERAL - 75-year-old female appearing her stated age who is moderate distress. Communicates well with provider and answers questions appropriately. SKIN - Without rashes. HEAD - NC/AT. EYES - PERRL with EOMI bilaterally. Sclera anicteric. EARS - No deformities of external structures noted on gross examination bilaterally. NOSE - Midline and without cyanosis. No epistaxis or purulent drainage noted. MOUTH/OROPHARYNX - Without perioral cyanosis. Buccal mucosa pink and moist. Good dentition noted. NECK - Neck with FROM. Supple to palpation. No lymphadenopathy noted. No nuchal rigidity. LUNGS - Chest wall symmetric without accessory muscle use, intercostals retractions, or central cyanosis. Normal vesicular breath sounds CTA B/L. No wheezes, rales, or rhonchi appreciated. CARDIAC - RRR with S1/S2. No murmur, rubs, or gallops appreciated. ABDOMEN - Abdominal contour flat without pulsations or visible masses. BS normoactive all four quadrants. No tenderness, palpable masses, hepatosplenomegaly, or ascites noted. EXTREMITIES - No clubbing or peripheral cyanosis. No pretibial edema present. +2/5 radial and dorsalis pedis pulses palpated throughout. +4/5 strength noted in UE/LE bilaterally. NEUROLOGIC - Cranial nerves II through XII grossly intact. Sensory intact to light touch throughout. PSYCH - A&Ox3 and cooperates fully with examiner. Pt is very pleasant despite her current acuity of illness. Results & Data Results & Data ([facility]) Vital Signs (Past 12 Hours) Vital Signs Temp Pulse Pulse Resp BP BP BP 01/22/21 00:01 120 H 37 H 108/58 L 01/21/21 23:56 118 H 32 H 59/41 L 01/21/21 23:50 124 H 18 73/49 L 01/21/21 23:45 118 H 17 84/41 L 01/21/21 23:40 118 H 34 H 76/43 L 01/21/21 23:35 115 H 28 H 63/36 L 01/21/21 23:30 115 H 33 H 71/41 L 01/21/21 23:15 114 H 34 H 73/32 L 01/21/21 23:00 116 H 27 H 83/35 L 01/21/21 22:55 78/32 L 01/21/21 22:54 39.3 C H 01/21/21 22:53 123 H 23 71/43 L 01/21/21 22:51 121 H 31 H 82/39 L 01/21/21 22:45 128 H 30 H 81/44 L 01/21/21 22:31 133 H 37 H 99/40 L 01/21/21 22:17 39.5 C H 138 H 28 H 89/38 L 01/21/21 22:07 39.5 C H 138 H 21 92/52 L 01/21/21 22:00 137 H 27 H 121/61 01/21/21 21:50 38.4 C H 143 H 24 117/54 L 01/21/21 21:31 144 H 23 122/93 01/21/21 21:00 135 H 26 H 01/21/21 20:41 37.7 C H 01/21/21 20:33 109 H 19 01/21/21 20:00 96 H 22 103/46 L 01/21/21 19:30 99/51 L 01/21/21 19:00 101 H 20 111/61 01/21/21 18:52 01/21/21 18:07 39.6 C H 111 H 18 122/47 L 01/21/21 18:06 104 H 19 122/47 L 01/21/21 15:57 38.2 C H 112 H 18 136/89 Pulse Ox 01/22/21 00:01 95 01/21/21 23:56 97 01/21/21 23:50 80 L 01/21/21 23:45 92 01/21/21 23:40 01/21/21 23:35 01/21/21 23:30 94 01/21/21 23:15 96 01/21/21 23:00 01/21/21 22:55 01/21/21 22:54 01/21/21 22:53 01/21/21 22:51 01/21/21 22:45 01/21/21 22:31 01/21/21 22:17 99 01/21/21 22:07 99 01/21/21 22:00 100 01/21/21 21:50 98 01/21/21 21:31 01/21/21 21:00 100 01/21/21 20:41 01/21/21 20:33 100 01/21/21 20:00 96 01/21/21 19:30 01/21/21 19:00 96 01/21/21 18:52 96 01/21/21 18:07 98 01/21/21 18:06 98 01/21/21 15:57 100 Coding Level of Care Code Critical Care 1st 30-74 mins Diagnoses Severe sepsis with septic shock A41.9; R65.21 Admitted to intensive care unit Z78.9 Anemia D64.9 Anemia type: unspecified type Neutropenic fever D70.9; R50.81 Blood transfusion reaction T80.92XA Hypotension I95.9 Tachycardia R00.0 CLL (chronic lymphocytic leukemia) C91.90 Dyslipidemia E78.5 Hypothyroidism E03.9 Time Spent (min) 85 (1) Anemia Anemia type: unspecified type Qualified Code(s): D64.9 - Anemia, unspecified
--- NOTE | 2021-01-22 01:50 | Procedure Note ---
Procedure Note Date of Service January 22, 2021 Note Procedure: Arterial Line Placement Attending: Dr. Miller APC: Max Rivera PA-C Indication: Hemodynamic monitoring Anesthesia: Lidocaine 1% Consent was signed and placed on the chart prior to procedure. Indication, risks, benefits, and alternatives were explained at length. Patient consents to any/all procedures discussed. Patient recognizes the acuity of her illness and need for close monitoring. A time-out was completed verifying correct patient, procedure, site, positioning, and implant(s) or special equipment if applicable. Allens test was performed to ensure adequate perfusion. Patients RIGHT wrist was prepped and draped in the usual sterile fashion. Ultrasound guidance was used to aid needle placement. A 20g Arrow arterial line was introduced into the RIGHT Radial artery. Catheter was threaded, and the needle was removed with appropriate blood return. Good waveform was observed. The patient tolerated the procedure well. Confirmation of placement with ultrasound. Blood Loss: Minimal Complications: None Procedural Ultrasound Guidance: Procedure Date: 01/22/2021 Indication: Hemodynamic Monitoring, Frequent ABGs/Lab draws. Attending: Dr. Miller APC: Max Rivera PA-C Artery Identified: YES Line confirmed in Artery with ultrasound: YES Complications: NONE Patient tolerated procedure: WELL Coding CPT Codes Tubes, Drains, and Vasc Access - Tubes, Drains, and Vasc Access: [id number] Place Catheter In Artery ([id number]) [facility] [place]Charges) Tubes, Drains, and Vasc Access Procedure 1: Tubes, Drains, and Vasc Access: [id number] Place Catheter In Artery
--- NOTE | 2021-01-22 01:50 | Procedure Note ---
Procedure Note Date of Service January 22, 2021 Note Procedure: Internal Jugular Central Line Placement Attending: Dr. Miller APC: Max Rivera PA-C Indication: Central Drug Administration, Poor Venous Access, Multiple Lab Draws Necessary, etc. Anesthesia: Lidocaine 1% Consent was signed and placed on the chart prior to procedure. Indication, risks, benefits, and alternatives were explained at length. Patient consents to any/all procedures discussed. Patient recognizes the acuity of her illness and need for betters access. While preparing to perform the procedure, patient acutely decompensated with a significant drop in her blood pressure (50s/30s) despite high amounts of Levophed. Additionally, patient acutely dropped her oxygen saturation on room air into the low 80s. While hypotensive, the patient became altered and near unresponsive further necessitating need for emergent intervention. A time-out was completed verifying correct patient, procedure, site, positioning, and implants(s) or special equipment if applicable. Patients RIGHT Neck was cleansed and draped in the typical sterile fashion using Chloraprep. The Internal Jugular Vein and Carotid Artery were identified using ultrasound. The superficial tissue was anesthetized using 4.0 mL of 1% lidocaine without epinephrine under direct visualization with the ultrasound. After adequate anesthetization was achieved, the Internal Jugular vein was cannulated under direct ultrasound guidance using an introducer needle on a syringe. Good venous blood return was maintained prior to removal of syringe from introducer needle. Using Seldinger Technique, a guide wire was advanced through the introducer needle without resistance. The introducer needle was removed and ultrasound images were obtained of the guide wire within the Internal Jugular Vein and saved to the patients medical record. Skin nash was avoided secondary to concerns for bleeding noted even with small needle stick during anesthetization. The dilator was advanced to the vessel without resistance. The dilator was exchanged for the triple lumen catheter which was advanced into the vessel. Some resistance was met at ~12 cm. Rather than risk causing injury, the wire was removed as all ports were well within the vein. The guide wire was removed intact from the catheter without issue. Claves were placed on each catheter tip with confirmation of good blood flow from each lumen. Each port was easily flushed with sterile saline. The catheter was placed at 12 cm and sut[address] in place. BioPatch was applied to the catheter and a sterile Tegaderm dressing was applied over the catheter with careful attention to sterility. Patient tolerated procedure well. No immediate complications were met. Post procedure x-ray was completed, placement of CVL noted to be in the RIGHT IJ/Proximal Brachiocephalic vein and no pneumothorax was noted. Images reviewed by my attending as well. Images obtained are saved for permanent record Procedural Ultrasound Guidance: Procedure Date: 01/22/2021 Indication: Poor peripheral venous access, escalating doses of vasopressors, need for multiple medications/blood products, patient in active state of extremis with little to no access. Attending: Dr. Miller APC: Max Rivera PA-C Artery AND Vein visualized: YES Compressible Vein: YES Guidewire or Short Catheter seen in vein prior to dilation: YES Line confirmed in Vein with ultrasound: YES Images obtained are saved for permanent record. Coding CPT Codes Tubes, Drains, and Vasc Access - Tubes, Drains, and Vasc Access: [id number] Insertion Of Non-tunneled Catheter Age 5 Yrs> ([id number]) Tubes, Drains, and Vasc Access - Tubes, Drains, and Vasc Access: [id number] Ultrasound Guidance For Vascular ([id number]) [facility] [place] Procedure Codes (Charges) Tubes, Drains, and Vasc Access Procedure 2: Tubes, Drains, and Vasc Access: [id number] Insertion Of Non-tunneled Catheter Age 7 Yrs> Procedure 3: Tubes, Drains, and Vasc Access: [id number] Ultrasound Guidance For Vascular
[2021-01-22 02:05] LABS: Fibrinogen 357 mg/dl (184-400)
[2021-01-22 02:08] LABS: BUN Creatinine Ratio 13.9 (10-20); Bilirubin Direct 2.2 mg/dl (0-0.2); Bilirubin,Total 2.8 mg/dl (0.2-1); Calcium 6.6 mg/dl (8.5-10.1); Creatinine Clr Calc Pharmacy 38.1 ml/min; Est GFR (African American) 50.4 ml/min; Est GFR (Non-African American) 43.5 ml/min; Magnesium 1.6 mg/dl (1.8-2.4); Potassium 3.3 mmol/L (3.5-5.1); Total Protein 4.2 gm/dl (6.4-8.2)
[2021-01-22 02:15] LABS: D Dimer 3730 ug/L FEU (0-500)
[2021-01-22 02:38] LABS: Immature Retic Fraction 18.1 % (3.0-15.9); Reticulated Hemoglobin 26.2 pg (28.2-36.6); Reticulocyte % 1.3 % (0.5-2.0); Reticulocytes # 0.03 10^6/uL (0.02-0.10)
[2021-01-22] MEDS: GABAPENTIN 300 MG CAP PO SCH ×3 (02:39→19:30)
[2021-01-22] MEDS: NORMOSOL-R 1,000 ML IV SCH ×3 (02:44→19:29)
[2021-01-22] MEDS: MAGNESIUM SULFATE / D5W 1 GM/100 ML BAG IV SCH ×2 (02:53→04:41)
[2021-01-22] MEDS: POTASSIUM CHLORIDE / WTR 20 MEQ/100 ML PLCT IV SCH ×2 (02:58→04:41)
[2021-01-22 03:58] LABS: Blood Urine 2+ (Negative)
[2021-01-22] MEDS: LEVOTHYROXINE SODIUM 125 MCG TABLET PO SCH (06:27)
--- NOTE | 2021-01-22 07:03 | XRay Report ---
XR chest 1V portable HISTORY: 75 years-old Female stat status post placement of a right IJ central venous catheter COMPARISON: Chest radiograph and CT abdomen and pelvis 01/21/2021 TECHNIQUE: Portable supine AP view of the chest FINDINGS: Right IJ central venous catheter is noted with distal tip projected over the posterior right third ri b, likely within the internal jugular brachiocephalic veins. No pneumothorax. Small pleural effusions . Pulmonary vascular congestion with progressive bilateral mixed interstitial and alveolar opacities. Surgical clips of the left axilla. Degenerative changes of the shoulders and spine. IMPRESSION: 1. Status post placement of a right IJ central venous catheter. No postprocedural pneumothorax. 2. New right greater than left mixed interstitial and alveolar opacities suggestive of pulmonary nilesh a. Superimposed pneumonitis would be difficult to exclude. 3. Small pleural effusions. ACT 112: Negative or not required by law. The above report was generated using voice recognition software. It may contain grammatical, syntax o r spelling errors. Electronically signed by: Elkin Benítez M.D. 01/22/2021 7:02 AM
[2021-01-22] MEDS ORDERED: CEFEPIME 2,000 MG in SYRINGE 0 ML IV SCH (08:00)
[2021-01-22 10:24] LABS: Hematocrit (blood only) 26.1 % (37-47); Hemoglobin 8.8 g/dL (12.0-16.0); Mean Corpuscular Hemoglobin 27.8 pg (25-34); Mean Corpuscular Hgb Conc 33.7 g/dL (32-36); Mean Corpuscular Volume 82.6 fL (80-100); Mean Platelet Volume 9.8 fL (7.4-10.4); Platelet Count 124 K/uL (130-400); RDW Coefficient of Variation 20.2 % (11.5-14.5); RDW Standard Deviation 60.3 fL (36.4-46.3); Red Blood Count 3.16 M/uL (4.2-5.4); White Blood Count 0.26 K/uL (4.8-10.8)
[2021-01-22 10:33] LABS: Allen Test Pos (Pos); Base Excess ABG -9.7 mEq/L (-9-1.8); HCO3 ABG 14 mmol/L (19-24); Oxygen Saturation ABG 96.2 % (90-95); PCO2 ABG 24 mmHg (35-46); PO2 ABG 79 mmHg (80-95); pH ABG 7.38 (7.35-7.45)
[2021-01-22 10:37] LABS: INR 1.7 (0.9-1.1); Prothrombin Time 16.7 Seconds (9.0-12.0)
[2021-01-22] MEDS: allopurinoL 300 MG TAB PO SCH (10:42)
[2021-01-22] MEDS: ACYCLOVIR 400 MG TAB PO SCH ×2 (10:43→19:30)
[2021-01-22 10:57] LABS: Albumin Level 1.9 gm/dl (3.4-5.0); BUN Creatinine Ratio 14.6 (10-20); Bilirubin Direct 5.4 mg/dl (0-0.2); Calcium 6.4 mg/dl (8.5-10.1); Creatinine Clr Calc Pharmacy 33.1 ml/min; Est GFR (African American) 38.7 ml/min; Est GFR (Non-African American) 33.4 ml/min; Magnesium 2.5 mg/dl (1.8-2.4); Potassium 4.3 mmol/L (3.5-5.1)
[2021-01-22 11:00] LABS: Bilirubin,Total 6.3 mg/dl (0.2-1); Phosphorus 3.5 mg/dl (2.5-4.9); Total Protein 4.3 gm/dl (6.4-8.2); Troponin I 1.57 ng/ml (0-0.045)
[2021-01-22] MEDS ORDERED: VANCOMYCIN HCL 1,000 MG in SODIUM CHLORIDE 0.9% 250 ML IV SCH (12:00)
--- NOTE | 2021-01-22 12:33 | Hospitalist Progress Note ---
Date of Service January 22, 2021 Assessment & Plan (1) Sepsis: (2) Gram-negative bacteremia: (3) Neutropenic fever: Plan: This is a 75-year-old female who presents with febrile neutropenia and sepsis. 1. Sepsis and febrile neutropenia: Found to have gram negative bacteremia, Most likely secondary to urinary tract infection. Started IV aggressive fluids. Lactic acid ok on admission initially. ER gave IV cefepime, which we be continued, also added IV vancomycin before gram negative bacteremia was confirmed. Initially planned for tele admission but soon after starting prbc transfusion patient temp spiked again and tachycardia worsened. blood transfusion was stopped and Benadryl was given. Ordered 1lt fluid bolus. Er ordered another litre bolus but Her tachycardia didn't improved and Systolic Blood pressure was dropping into 70's. At that time decided to start on Levophed drip and Transferred to ICU. As soon as patient was in ICU her condition further deteriorated requiring two pressors Levophed and vasopressin. She became confused and hypoxic for some time. Right IJ line was placed.Blood was redrawn. hb came as 5.5. Discussed with Oncology ok to give prbc transfusion. By this time patient somewhat stabilized. ICU attending checked bedside echo no right heart strain was found and no obvious dvt . Ordered irradiated blood(blood bank has only 4 irradiated blood ). Pt received 2 units overnight.Notified and he came to the hospital.Repeat labs showed platelets dropped to 85 and lactic acid came back at 5.5. To continue abx , fluid and pressors and follow cultures. Also seems to having DIC. No obvious bleeding noted.Patient is critical.Appreciate Critical acre help and management. 2. Anemia, most likely from the chemo, which is on hold.Transfusing PRBC as above, follow H and H. Follow Hemoccult. 3. Hyponatremia: Getting fluids. Follow the repeat labs in the a.m. 4. CLL, on acalabrutinib, which is on hold. Follow up with heme/onc. Pt follows w/ Dr. Mcelroy in [place] - who was notified by Dr. Huang. 5. Hypothyroidism: Continue Synthroid. 6. Hyperlipidemia: Continue statin. 7. Gout: Continue allopurinol. 8. Elevated LFTs: Possibly from the ongoing illness. Will follow the repeat labs. DVT prophylaxis: SCDs for now. If Hemoccult comes negative, will place her on Lovenox. DISPOSITION:Patient is in critical condition. Closely monitor in the ICU. Code: Full Admission and Anticipated Discharge Date Admission Date: January 21, 2021 Subjective Pt seen in follow up of neutropenic fever, gram negative bacteremia - likely from UTI Pt reports having dysuria since Thursday Currently laying in bed in NAD She is awake alert and answering questions appropriately She is on 2L of O2 Still on 2 vasopressors Received 2 units of pRBCs overnight Feeling tired and weak, denies any chest pain, shortness of breath, abdominal pain. Review of Systems Review of Systems: All systems reviewed & are unremarkable except as noted in Subjective Physical Exam Physical Exam: GENERAL: The patient is of moderate build, not in acute distress. on 2L via NC HEENT: NC/AT, EOMI. PERRL. Oral mucosa moist. NECK: No JVD, no neck masses. CARDIOVASCULAR: S1 and S2 heard. Tachycardia. No murmurs. RESPIRATORY SYSTEM: Normal AP diameter. No accessory muscle use. No wheezing, no crackles. ABDOMEN: Soft, bowel sounds present, nontender, no distention. NEURO: alert and oriented and answering questions appropriately. no facial asymmetry. speech fluent. moves extremities. EXTREMITIES: No edema, no erythema. Results & Data Results & Data ([facility]) Vital Signs (Past 12 Hours) Vital Signs Temp Pulse Resp BP Pulse Ox Pulse Ox 01/22/21 08:32 37.1 C 94 H 21 86/55 L 99 01/22/21 08:09 37 C 93 H 22 84/58 L 99 01/22/21 07:39 37 C 93 H 24 87/54 L 98 01/22/21 07:10 93 H 21 87/56 L 98 01/22/21 07:09 93 H 22 80/53 L 98 01/22/21 06:54 92 H 24 84/54 L 99 01/22/21 06:39 92 H 23 86/57 L 99 01/22/21 06:28 37.5 C 91 H 20 87/45 L 98 01/22/21 06:24 91 H 22 89/52 L 97 01/22/21 06:09 92 H 21 85/56 L 97 01/22/21 05:58 93 H 24 85/44 L 97 01/22/21 05:50 95 H 23 97 01/22/21 05:45 94 H 24 97 01/22/21 05:43 37.6 C H 93 H 24 85/56 L 97 01/22/21 05:40 94 H 17 98 01/22/21 05:27 37.8 C H 95 H 24 87/60 L 97 01/22/21 05:24 97 H 23 87/60 L 95 01/22/21 05:13 96 H 25 H 88/48 L 96 01/22/21 05:09 95 H 23 89/50 L 96 01/22/21 05:03 37.9 C H 94 H 24 88/50 L 97 01/22/21 04:54 97 H 22 91/57 L 96 01/22/21 04:39 98 H 22 89/54 L 96 01/22/21 04:24 97 H 24 92/53 L 96 01/22/21 04:09 38.8 C H 102 H 25 H 85/62 L 96 01/22/21 04:03 38.8 C H 100 H 24 87/53 L 94 01/22/21 03:54 100 H 27 H 87/53 L 97 01/22/21 03:39 101 H 24 93/53 L 96 01/22/21 03:24 104 H 26 H 94/52 L 96 01/22/21 03:09 106 H 29 H 95/54 L 96 01/22/21 03:03 39.4 C H 108 H 26 H 92/62 L 96 01/22/21 02:53 108 H 30 H 92/62 L 96 01/22/21 02:38 109 H 30 H 84/52 L 98 01/22/21 02:33 39.4 C H 110 H 28 H 84/52 L 98 01/22/21 02:24 39.3 C H 112 H 25 H 87/50 L 95 01/22/21 02:18 39 C H 112 H 26 H 87/50 L 95 01/22/21 02:09 115 H 29 H 98/51 L 94 01/22/21 02:03 115 H 32 H 99/52 L 94 01/22/21 02:02 38.5 C H 115 H 33 H 115/37 L 93 01/22/21 01:58 116 H 32 H 95/54 L 95 01/22/21 01:54 117 H 30 H 103/56 L 93 01/22/21 01:49 117 H 31 H 104/50 L 98 01/22/21 01:43 118 H 26 H 104/55 L 95 01/22/21 01:35 119 H 30 H 127/57 L 98 01/22/21 01:29 120 H 28 H 119/59 L 96 01/22/21 01:24 123 H 29 H 101/66 97 01/22/21 01:15 120 H 28 H 82/59 L 99 01/22/21 01:08 116 H 26 H 102/51 L 100 01/22/21 01:03 118 H 27 H 87/42 L 90 94 01/22/21 00:56 124 H 26 H 67/35 L 93 01/22/21 00:53 119 H 26 H 59/28 L 90 01/22/21 00:43 111 H 26 H 68/34 L 91 Laboratory Results 01/22/21 01/22/21 01/22/21 Range/Units 10:10 10:10 10:10 WBC (4.8-10.8) K/uL RBC (4.2-5.4) M/uL Hgb (12.0-16.0) g/dL Hct (37-47) % MCV (80-100) fL MCH (25-34) pg MCHC (32-36) g/dL RDW Std Deviation (36.4-46.3) fL RDW Coeff of Roxie (11.5-14.5) % Plt Count (130-400) K/uL MPV (7.4-10.4) fL Immature Gran % (Auto) Neut % (Auto) Lymph % (Auto) [place] % (Auto) Eos % (Auto) Baso % (Auto) Reticulocyte % (Auto) (0.5-2.0) % Neut # (Auto) Lymph # (Auto) [place] # (Auto) Eos # (Auto) Baso # (Auto) Reticulocyte # (0.02-0.10) 10^6/uL Immature Gran # (Auto) Absolute Nucleated RBC Nucleated RBC % (auto) Neutrophils % (Manual) Band Neutrophils % Lymphocytes % (Manual) Prolymphocyte % Reactive Lymphs % (Man) Monocytes % (Manual) Eosinophils % (Manual) Basophils % (Manual) Metamyelocytes % (Man) Myelocytes % (Man) Promyelocytes % (Man) Blast Cells % (Manual) Plasma Cell % (Manual) Other Cells % Nucleated RBC % Neutrophils # (Manual) Band Neutrophils # Total Absolute Neuts Lymphocytes # (Manual) Prolymphocyte # Reactive Lymphs # Total Abs Lymphocytes Monocytes # (Manual) Eosinophils # (Manual) Basophils # (Manual) Metamyelocytes # (Man) Myelocytes # (Manual) Promyelocytes # (Man) Blast Cells # (Man) Plasma Cell # (Manual) Other Cells # Nucleated RBCs # (Man) Hypersegmented Neuts Hyposegmented Neuts Hypogranular Neuts Large Granular Lymphs # Lrg Granular Lymphs Hairy Cells Smudge Cells Toxic Granulation Toxic Vacuolation Dohle Bodies Karis Rods Platelet Estimate Hypogranular Platelets Clumped Platelets Giant Platelets Platelet Satelliting RBC Morphology Polychromasia Hypochromasia Poikilocytosis Basophilic Stippling Anisocytosis Microcytosis Macrocytosis Spherocytes Pappenheimer Bodies Sickle Cells Target Cells Tear Drop Cells Ovalocytes Stomatocytes [place] Bodies Echinocytes Acanthocytes (Spur) Rouleaux RBC Agglutinates Schistocytes RBC Morph Comment Immature Retic Fraction (3.0-15.9) % Retic Hgb Content (28.2-36.6) pg Sezary Cell Haptoglobin PT (9.0-12.0) Seconds INR (0.9-1.1) APTT (21.0-31.0) Seconds PTT Ratio Fibrinogen (184-400) mg/dl Fibrin Degrad Products (<10) mcg/ml D-Dimer (0-500) ug/L FEU Factor VIII Activity ABG pH 7.38 (7.35-7.45) ABG pCO2 24 L (35-46) mmHg ABG pO2 79 L (80-95) mmHg ABG HCO3 14 L (19-24) mmol/L ABG O2 Saturation 96.2 H (90-95) % ABG Base Excess -9.7 L (-9-1.8) mEq/L Terry Test Pos (Pos) VBG pH (7.36-7.41) VBG pCO2 (38-50) mmHg VBG pO2 mmHg VBG HCO3 mmol/L VBG O2 Saturation % VBG Base Excess mEq/L Barometric Pressure 739.4 mm/Hg Oxygen Given 6 Sodium (136-145) mmol/L Potassium (3.5-5.1) mmol/L Chloride (98-107) mmol/L Carbon Dioxide (21-32) mmol/L Anion Gap (3-11) BUN (7-18) mg/dl Creatinine (0.6-1.2) mg/dl Est Cr Clr Drug Dosing ml/min Est GFR ( Amer) ml/min Est GFR (Non-Af Amer) ml/min BUN/Creatinine Ratio (10-20) Glucose (70-99) mg/dl Lactate (0.4-2.0) mmol/L Calcium (8.5-10.1) mg/dl Ionized Calcium 0.90 L (1.12-1.32) mmol/L Phosphorus (2.5-4.9) mg/dl Magnesium (1.8-2.4) mg/dl Total Bilirubin (0.2-1) mg/dl Direct Bilirubin (0-0.2) mg/dl AST (15-37) U/L ALT (12-78) U/L Alkaline Phosphatase (45-117) U/L Lactate Dehydrogenase (84-246) U/L Troponin I (0-0.045) ng/ml Total Protein (6.4-8.2) gm/dl Albumin (3.4-5.0) gm/dl Globulin (2.5-4.0) gm/dl Albumin/Globulin Ratio (0.9-2) Procalcitonin 140.23 H (0-0.5) ng/ml Random Cortisol mcg/dl Urine Color Urine Appearance (Clear) Urine pH (4.5-7.5) Ur Specific Man (1.000-1.030) Urine Protein (Negative) Urine Glucose (UA) (Negative) Urine Ketones (Negative) Urine Blood (Negative) Urine Nitrite (Negative) Urine Bilirubin (Negative) Urine Urobilinogen (Negative) Ur Leukocyte Esterase (Negative) Urine WBC (Auto) (0-5) /hpf Urine RBC (Auto) (0-4) /hpf U Hyaline Cast (Auto) (0-5) /lpf U Epithel Cells (Auto) (0-5) /lpf Urine Bacteria (Auto) (Negative) Nasal Screen MRSA (PCR) (Negative) Acetaminophen (10-30) ug/ml COVID-19 Eval Order SARS-CoV-2 (PCR) (Negative) Blood Type Blood Type Recheck Antibody Screen Crossmatch Transfusion React Date Transfusion React Time Tx React Symptoms Reaction Clerical Check Lab Clerical Err Check React Component Return Volume Returned Pre-Trans Blood Type Pre-Trans Vis Hemolysis Pre-Trans MANUELA (Negative) Pre-Trans MANUELA IgG (Negative) Pre-Trans MANUELA Poly (Negative) Pre-Trans MANUELA C3b, C3d (Negative) Post-Trans Blood Type Post-Tx Visible Hemolys Post-Trans MANUELA (Negative) Post-Trans MANUELA IgG (Negative) Post-Trans MANUELA Poly (Negative) Post-Trans MANUELA C3b, C3d (Negative) Post-Trans Ur Hemoglobin Reaction Path Interpret Transfusion Serv Com 01/22/21 01/22/21 01/22/21 Range/Units 10:10 10:10 10:10 WBC (4.8-10.8) K/uL RBC (4.2-5.4) M/uL Hgb (12.0-16.0) g/dL Hct (37-47) % MCV (80-100) fL MCH (25-34) pg MCHC (32-36) g/dL RDW Std Deviation (36.4-46.3) fL RDW Coeff of Roxie (11.5-14.5) % Plt Count (130-400) K/uL MPV (7.4-10.4) fL Immature Gran % (Auto) Neut % (Auto) Lymph % (Auto) [place] % (Auto) Eos % (Auto) Baso % (Auto) Reticulocyte % (Auto) (0.5-2.0) % Neut # (Auto) Lymph # (Auto) [place] # (Auto) Eos # (Auto) Baso # (Auto) Reticulocyte # (0.02-0.10) 10^6/uL Immature Gran # (Auto) Absolute Nucleated RBC Nucleated RBC % (auto) Neutrophils % (Manual) Band Neutrophils % Lymphocytes % (Manual) Prolymphocyte % Reactive Lymphs % (Man) Monocytes % (Manual) Eosinophils % (Manual) Basophils % (Manual) Metamyelocytes % (Man) Myelocytes % (Man) Promyelocytes % (Man) Blast Cells % (Manual) Plasma Cell % (Manual) Other Cells % Nucleated RBC % Neutrophils # (Manual) Band Neutrophils # Total Absolute Neuts Lymphocytes # (Manual) Prolymphocyte # Reactive Lymphs # Total Abs Lymphocytes Monocytes # (Manual) Eosinophils # (Manual) Basophils # (Manual) Metamyelocytes # (Man) Myelocytes # (Manual) Promyelocytes # (Man) Blast Cells # (Man) Plasma Cell # (Manual) Other Cells # Nucleated RBCs # (Man) Hypersegmented Neuts Hyposegmented Neuts Hypogranular Neuts Large Granular Lymphs # Lrg Granular Lymphs Hairy Cells Smudge Cells Toxic Granulation Toxic Vacuolation Dohle Bodies Karis Rods Platelet Estimate Hypogranular Platelets Clumped Platelets Giant Platelets Platelet Satelliting RBC Morphology Polychromasia Hypochromasia Poikilocytosis Basophilic Stippling Anisocytosis Microcytosis Macrocytosis Spherocytes Pappenheimer Bodies Sickle Cells Target Cells Tear Drop Cells Ovalocytes Stomatocytes [place] Bodies Echinocytes Acanthocytes (Spur) Rouleaux RBC Agglutinates Schistocytes RBC Morph Comment Immature Retic Fraction (3.0-15.9) % Retic Hgb Content (28.2-36.6) pg Sezary Cell Haptoglobin PT 16.7 H (9.0-12.0) Seconds INR 1.7 H (0.9-1.1) APTT (21.0-31.0) Seconds PTT Ratio Fibrinogen (184-400) mg/dl Fibrin Degrad Products (<10) mcg/ml D-Dimer (0-500) ug/L FEU Factor VIII Activity ABG pH (7.35-7.45) ABG pCO2 (35-46) mmHg ABG pO2 (80-95) mmHg ABG HCO3 (19-24) mmol/L ABG O2 Saturation (90-95) % ABG Base Excess (-9-1.8) mEq/L Terry Test (Pos) VBG pH (7.36-7.41) VBG pCO2 (38-50) mmHg VBG pO2 mmHg VBG HCO3 mmol/L VBG O2 Saturation % VBG Base Excess mEq/L Barometric Pressure mm/Hg Oxygen Given Sodium 131 L (136-145) mmol/L Potassium 4.3 D (3.5-5.1) mmol/L Chloride 105 (98-107) mmol/L Carbon Dioxide 14 L (21-32) mmol/L Anion Gap 12.0 H (3-11) BUN 22 H (7-18) mg/dl Creatinine 1.53 H D (0.6-1.2) mg/dl Est Cr Clr Drug Dosing 33.1 ml/min Est GFR ( Amer) 38.7 ml/min Est GFR (Non-Af Amer) 33.4 ml/min BUN/Creatinine Ratio 14.6 (10-20) Glucose 197 H (70-99) mg/dl Lactate 3.5 H* (0.4-2.0) mmol/L Calcium 6.4 L (8.5-10.1) mg/dl Ionized Calcium (1.12-1.32) mmol/L Phosphorus 3.5 (2.5-4.9) mg/dl Magnesium 2.5 H (1.8-2.4) mg/dl Total Bilirubin 6.3 H D (0.2-1) mg/dl Direct Bilirubin 5.4 H D (0-0.2) mg/dl AST 117 H (15-37) U/L ALT 91 H (12-78) U/L Alkaline Phosphatase 211 H (45-117) U/L Lactate Dehydrogenase (84-246) U/L Troponin I 1.570 H* (0-0.045) ng/ml Total Protein 4.3 L (6.4-8.2) gm/dl Albumin 1.9 L (3.4-5.0) gm/dl Globulin (2.5-4.0) gm/dl Albumin/Globulin Ratio (0.9-2) Procalcitonin (0-0.5) ng/ml Random Cortisol mcg/dl Urine Color Urine Appearance (Clear) Urine pH (4.5-7.5) Ur Specific Man (1.000-1.030) Urine Protein (Negative) Urine Glucose (UA) (Negative) Urine Ketones (Negative) Urine Blood (Negative) Urine Nitrite (Negative) Urine Bilirubin (Negative) Urine Urobilinogen (Negative) Ur Leukocyte Esterase (Negative) Urine WBC (Auto) (0-5) /hpf Urine RBC (Auto) (0-4) /hpf U Hyaline Cast (Auto) (0-5) /lpf U Epithel Cells (Auto) (0-5) /lpf Urine Bacteria (Auto) (Negative) Nasal Screen MRSA (PCR) (Negative) Acetaminophen (10-30) ug/ml COVID-19 Eval Order SARS-CoV-2 (PCR) (Negative) Blood Type Blood Type Recheck Antibody Screen Crossmatch Transfusion React Date Transfusion React Time Tx React Symptoms Reaction Clerical Check Lab Clerical Err Check React Component Return Volume Returned Pre-Trans Blood Type Pre-Trans Vis Hemolysis Pre-Trans MANUELA (Negative) Pre-Trans MANUELA IgG (Negative) Pre-Trans MANUELA Poly (Negative) Pre-Trans MANUELA C3b, C3d (Negative) Post-Trans Blood Type Post-Tx Visible Hemolys Post-Trans MANUELA (Negative) Post-Trans MANUELA IgG (Negative) Post-Trans MANUELA Poly (Negative) Post-Trans MANUELA C3b, C3d (Negative) Post-Trans Ur Hemoglobin Reaction Path Interpret Transfusion Serv Com 01/22/21 01/22/21 01/22/21 Range/Units 10:10 03:30 02:20 WBC 0.26 L* (4.8-10.8) K/uL RBC 3.16 L (4.2-5.4) M/uL Hgb 8.8 L D (12.0-16.0) g/dL Hct 26.1 L (37-47) % MCV 82.6 (80-100) fL MCH 27.8 (25-34) pg MCHC 33.7 (32-36) g/dL RDW Std Deviation 60.3 H (36.4-46.3) fL RDW Coeff of Roxie 20.2 H (11.5-14.5) % Plt Count 124 L (130-400) K/uL MPV 9.8 (7.4-10.4) fL Immature Gran % (Auto) Cancelled Neut % (Auto) Cancelled Lymph % (Auto) Cancelled [place] % (Auto) Cancelled Eos % (Auto) Cancelled Baso % (Auto) Cancelled Reticulocyte % (Auto) (0.5-2.0) % Neut # (Auto) Cancelled Lymph # (Auto) Cancelled [place] # (Auto) Cancelled Eos # (Auto) Cancelled Baso # (Auto) Cancelled Reticulocyte # (0.02-0.10) 10^6/uL Immature Gran # (Auto) Cancelled Absolute Nucleated RBC Nucleated RBC % (auto) Neutrophils % (Manual) Cancelled Band Neutrophils % Cancelled Lymphocytes % (Manual) Cancelled Prolymphocyte % Cancelled Reactive Lymphs % (Man) Cancelled Monocytes % (Manual) Cancelled Eosinophils % (Manual) Cancelled Basophils % (Manual) Cancelled Metamyelocytes % (Man) Cancelled Myelocytes % (Man) Cancelled Promyelocytes % (Man) Cancelled Blast Cells % (Manual) Cancelled Plasma Cell % (Manual) Cancelled Other Cells % Cancelled Nucleated RBC % Cancelled Neutrophils # (Manual) Cancelled Band Neutrophils # Cancelled Total Absolute Neuts Cancelled Lymphocytes # (Manual) Cancelled Prolymphocyte # Cancelled Reactive Lymphs # Cancelled Total Abs Lymphocytes Cancelled Monocytes # (Manual) Cancelled Eosinophils # (Manual) Cancelled Basophils # (Manual) Cancelled Metamyelocytes # (Man) Cancelled Myelocytes # (Manual) Cancelled Promyelocytes # (Man) Cancelled Blast Cells # (Man) Cancelled Plasma Cell # (Manual) Cancelled Other Cells # Cancelled Nucleated RBCs # (Man) Cancelled Hypersegmented Neuts Cancelled Hyposegmented Neuts Cancelled Hypogranular Neuts Cancelled Large Granular Lymphs Cancelled # Lrg Granular Lymphs Cancelled Hairy Cells Cancelled Smudge Cells Cancelled Toxic Granulation Cancelled Toxic Vacuolation Cancelled Dohle Bodies Cancelled Karis Rods Cancelled Platelet Estimate Hypogranular Platelets Cancelled Clumped Platelets Cancelled Giant Platelets Cancelled Platelet Satelliting Cancelled RBC Morphology Cancelled Polychromasia Cancelled Hypochromasia Cancelled Poikilocytosis Cancelled Basophilic Stippling Cancelled Anisocytosis Cancelled Microcytosis Cancelled Macrocytosis Cancelled Spherocytes Cancelled Pappenheimer Bodies Cancelled Sickle Cells Cancelled Target Cells Cancelled Tear Drop Cells Cancelled Ovalocytes Cancelled Stomatocytes Cancelled Car[place]qu[place] Bodies Cancelled Echinocytes Cancelled Acanthocytes (Spur) Cancelled Rouleaux Cancelled RBC Agglutinates Cancelled Schistocytes Cancelled RBC Morph Comment Cancelled Immature Retic Fraction (3.0-15.9) % Retic Hgb Content (28.2-36.6) pg Sezary Cell Cancelled Haptoglobin PT (9.0-12.0) Seconds INR (0.9-1.1) APTT (21.0-31.0) Seconds PTT Ratio Fibrinogen (184-400) mg/dl Fibrin Degrad Products (<10) mcg/ml D-Dimer (0-500) ug/L FEU Factor VIII Activity ABG pH (7.35-7.45) ABG pCO2 (35-46) mmHg ABG pO2 (80-95) mmHg ABG HCO3 (19-24) mmol/L ABG O2 Saturation (90-95) % ABG Base Excess (-9-1.8) mEq/L Terry Test (Pos) VBG pH (7.36-7.41) VBG pCO2 (38-50) mmHg VBG pO2 mmHg VBG HCO3 mmol/L VBG O2 Saturation % VBG Base Excess mEq/L Barometric Pressure mm/Hg Oxygen Given Sodium (136-145) mmol/L Potassium (3.5-5.1) mmol/L Chloride (98-107) mmol/L Carbon Dioxide (21-32) mmol/L Anion Gap (3-11) BUN (7-18) mg/dl Creatinine (0.6-1.2) mg/dl Est Cr Clr Drug Dosing ml/min Est GFR ( Amer) ml/min Est GFR (Non-Af Amer) ml/min BUN/Creatinine Ratio (10-20) Glucose (70-99) mg/dl Lactate (0.4-2.0) mmol/L Calcium (8.5-10.1) mg/dl Ionized Calcium (1.12-1.32) mmol/L Phosphorus (2.5-4.9) mg/dl Magnesium (1.8-2.4) mg/dl Total Bilirubin (0.2-1) mg/dl Direct Bilirubin (0-0.2) mg/dl AST (15-37) U/L ALT (12-78) U/L Alkaline Phosphatase (45-117) U/L Lactate Dehydrogenase (84-246) U/L Troponin I (0-0.045) ng/ml Total Protein (6.4-8.2) gm/dl Albumin (3.4-5.0) gm/dl Globulin (2.5-4.0) gm/dl Albumin/Globulin Ratio (0.9-2) Procalcitonin (0-0.5) ng/ml Random Cortisol mcg/dl Urine Color Urine Appearance (Clear) Urine pH (4.5-7.5) Ur Specific Man (1.000-1.030) Urine Protein (Negative) Urine Glucose (UA) (Negative) Urine Ketones (Negative) Urine Blood 2+ H (Negative) Urine Nitrite (Negative) Urine Bilirubin (Negative) Urine Urobilinogen (Negative) Ur Leukocyte Esterase (Negative) Urine WBC (Auto) (0-5) /hpf Urine RBC (Auto) 5-10 H (0-4) /hpf U Hyaline Cast (Auto) (0-5) /lpf U Epithel Cells (Auto) (0-5) /lpf Urine Bacteria (Auto) (Negative) Nasal Screen MRSA (PCR) Negative (Negative) Acetaminophen (10-30) ug/ml COVID-19 Eval Order SARS-CoV-2 (PCR) (Negative) Blood Type Blood Type Recheck Antibody Screen Crossmatch Transfusion React Date Transfusion React Time Tx React Symptoms Reaction Clerical Check Lab Clerical Err Check React Component Return Volume Returned Pre-Trans Blood Type Pre-Trans Vis Hemolysis Pre-Trans MANUELA (Negative) Pre-Trans MANUELA IgG (Negative) Pre-Trans MANUELA Poly (Negative) Pre-Trans MANUELA C3b, C3d (Negative) Post-Trans Blood Type Post-Tx Visible Hemolys Post-Trans MANUELA (Negative) Post-Trans MANUELA IgG (Negative) Post-Trans MANUELA Poly (Negative) Post-Trans MANUELA C3b, C3d (Negative) Post-Trans Ur Hemoglobin Reaction Path Interpret Transfusion Serv Com 01/22/21 01/22/21 01/22/21 Range/Units 01:29 01:24 01:18 WBC (4.8-10.8) K/uL RBC (4.2-5.4) M/uL Hgb (12.0-16.0) g/dL Hct (37-47) % MCV (80-100) fL MCH (25-34) pg MCHC (32-36) g/dL RDW Std Deviation (36.4-46.3) fL RDW Coeff of Roxie (11.5-14.5) % Plt Count (130-400) K/uL MPV (7.4-10.4) fL Immature Gran % (Auto) Neut % (Auto) Lymph % (Auto) [place] % (Auto) Eos % (Auto) Baso % (Auto) Reticulocyte % (Auto) 1.3 (0.5-2.0) % Neut # (Auto) Lymph # (Auto) [place] # (Auto) Eos # (Auto) Baso # (Auto) Reticulocyte # 0.03 (0.02-0.10) 10^6/uL Immature Gran # (Auto) Absolute Nucleated RBC Nucleated RBC % (auto) Neutrophils % (Manual) Band Neutrophils % Lymphocytes % (Manual) Prolymphocyte % Reactive Lymphs % (Man) Monocytes % (Manual) Eosinophils % (Manual) Basophils % (Manual) Metamyelocytes % (Man) Myelocytes % (Man) Promyelocytes % (Man) Blast Cells % (Manual) Plasma Cell % (Manual) Other Cells % Nucleated RBC % Neutrophils # (Manual) Band Neutrophils # Total Absolute Neuts Lymphocytes # (Manual) Prolymphocyte # Reactive Lymphs # Total Abs Lymphocytes Monocytes # (Manual) Eosinophils # (Manual) Basophils # (Manual) Metamyelocytes # (Man) Myelocytes # (Manual) Promyelocytes # (Man) Blast Cells # (Man) Plasma Cell # (Manual) Other Cells # Nucleated RBCs # (Man) Hypersegmented Neuts Hyposegmented Neuts Hypogranular Neuts Large Granular Lymphs # Lrg Granular Lymphs Hairy Cells Smudge Cells Toxic Granulation Toxic Vacuolation Dohle Bodies Karis Rods Platelet Estimate Hypogranular Platelets Clumped Platelets Giant Platelets Platelet Satelliting RBC Morphology Polychromasia Hypochromasia Poikilocytosis Basophilic Stippling Anisocytosis Microcytosis Macrocytosis Spherocytes Pappenheimer Bodies Sickle Cells Target Cells Tear Drop Cells Ovalocytes Stomatocytes [place] Bodies Echinocytes Acanthocytes (Spur) Rouleaux RBC Agglutinates Schistocytes RBC Morph Comment Immature Retic Fraction 18.1 H (3.0-15.9) % Retic Hgb Content 26.2 L (28.2-36.6) pg Sezary Cell Haptoglobin PT (9.0-12.0) Seconds INR (0.9-1.1) APTT (21.0-31.0) Seconds PTT Ratio Fibrinogen (184-400) mg/dl Fibrin Degrad Products (<10) mcg/ml D-Dimer (0-500) ug/L FEU Factor VIII Activity ABG pH (7.35-7.45) ABG pCO2 (35-46) mmHg ABG pO2 (80-95) mmHg ABG HCO3 (19-24) mmol/L ABG O2 Saturation (90-95) % ABG Base Excess (-9-1.8) mEq/L Terry Test (Pos) VBG pH 7.32 L (7.36-7.41) VBG pCO2 33 L (38-50) mmHg VBG pO2 22 mmHg VBG HCO3 17 mmol/L VBG O2 Saturation < 60.0 % VBG Base Excess -8.4 mEq/L Barometric Pressure mm/Hg Oxygen Given Sodium (136-145) mmol/L Potassium (3.5-5.1) mmol/L Chloride (98-107) mmol/L Carbon Dioxide (21-32) mmol/L Anion Gap (3-11) BUN (7-18) mg/dl Creatinine (0.6-1.2) mg/dl Est Cr Clr Drug Dosing ml/min Est GFR ( Amer) ml/min Est GFR (Non-Af Amer) ml/min BUN/Creatinine Ratio (10-20) Glucose (70-99) mg/dl Lactate 5.5 H* (0.4-2.0) mmol/L Calcium (8.5-10.1) mg/dl Ionized Calcium (1.12-1.32) mmol/L Phosphorus (2.5-4.9) mg/dl Magnesium (1.8-2.4) mg/dl Total Bilirubin (0.2-1) mg/dl Direct Bilirubin (0-0.2) mg/dl AST (15-37) U/L ALT (12-78) U/L Alkaline Phosphatase (45-117) U/L Lactate Dehydrogenase (84-246) U/L Troponin I (0-0.045) ng/ml Total Protein (6.4-8.2) gm/dl Albumin (3.4-5.0) gm/dl Globulin (2.5-4.0) gm/dl Albumin/Globulin Ratio (0.9-2) Procalcitonin (0-0.5) ng/ml Random Cortisol mcg/dl Urine Color Urine Appearance (Clear) Urine pH (4.5-7.5) Ur Specific Man (1.000-1.030) Urine Protein (Negative) Urine Glucose (UA) (Negative) Urine Ketones (Negative) Urine Blood (Negative) Urine Nitrite (Negative) Urine Bilirubin (Negative) Urine Urobilinogen (Negative) Ur Leukocyte Esterase (Negative) Urine WBC (Auto) (0-5) /hpf Urine RBC (Auto) (0-4) /hpf U Hyaline Cast (Auto) (0-5) /lpf U Epithel Cells (Auto) (0-5) /lpf Urine Bacteria (Auto) (Negative) Nasal Screen MRSA (PCR) (Negative) Acetaminophen (10-30) ug/ml COVID-19 Eval Order SARS-CoV-2 (PCR) (Negative) Blood Type Blood Type Recheck Antibody Screen Crossmatch Transfusion React Date Transfusion React Time Tx React Symptoms Reaction Clerical Check Lab Clerical Err Check React Component Return Volume Returned Pre-Trans Blood Type Pre-Trans Vis Hemolysis Pre-Trans MANUELA (Negative) Pre-Trans [place] IgG (Negative) Pre-Trans [place]A Poly (Negative) Pre-Trans [place]A C3b, C3d (Negative) Post-Trans Blood Type Post-Tx Visible Hemolys Post-Trans MANUELA (Negative) Post-Trans [place]ELA IgG (Negative) Post-Trans [place]ELA Poly (Negative) Post-Trans [place]A C3b, C3d (Negative) Post-Trans Ur Hemoglobin Reaction Path Interpret Transfusion Serv Com 01/22/21 01/22/21 01/22/21 Range/Units 01:18 01:18 01:18 WBC (4.8-10.8) K/uL RBC (4.2-5.4) M/uL Hgb (12.0-16.0) g/dL Hct (37-47) % MCV (80-100) fL MCH (25-34) pg MCHC (32-36) g/dL RDW Std Deviation (36.4-46.3) fL RDW Coeff of Roxie (11.5-14.5) % Plt Count (130-400) K/uL MPV (7.4-10.4) fL Immature Gran % (Auto) Neut % (Auto) Lymph % (Auto) [place] % (Auto) Eos % (Auto) Baso % (Auto) Reticulocyte % (Auto) (0.5-2.0) % Neut # (Auto) Lymph # (Auto) [place] # (Auto) Eos # (Auto) Baso # (Auto) Reticulocyte # (0.02-0.10) 10^6/uL Immature Gran # (Auto) Absolute Nucleated RBC Nucleated RBC % (auto) Neutrophils % (Manual) Band Neutrophils % Lymphocytes % (Manual) Prolymphocyte % Reactive Lymphs % (Man) Monocytes % (Manual) Eosinophils % (Manual) Basophils % (Manual) Metamyelocytes % (Man) Myelocytes % (Man) Promyelocytes % (Man) Blast Cells % (Manual) Plasma Cell % (Manual) Other Cells % Nucleated RBC % Neutrophils # (Manual) Band Neutrophils # Total Absolute Neuts Lymphocytes # (Manual) Prolymphocyte # Reactive Lymphs # Total Abs Lymphocytes Monocytes # (Manual) Eosinophils # (Manual) Basophils # (Manual) Metamyelocytes # (Man) Myelocytes # (Manual) Promyelocytes # (Man) Blast Cells # (Man) Plasma Cell # (Manual) Other Cells # Nucleated RBCs # (Man) Hypersegmented Neuts Hyposegmented Neuts Hypogranular Neuts Large Granular Lymphs # Lrg Granular Lymphs Hairy Cells Smudge Cells Toxic Granulation Toxic Vacuolation Dohle Bodies Karis Rods Platelet Estimate Hypogranular Platelets Clumped Platelets Giant Platelets Platelet Satelliting RBC Morphology Polychromasia Hypochromasia Poikilocytosis Basophilic Stippling Anisocytosis Microcytosis Macrocytosis Spherocytes Pappenheimer Bodies Sickle Cells Target Cells Tear Drop Cells Ovalocytes Stomatocytes [place] Bodies Echinocytes Acanthocytes (Spur) Rouleaux RBC Agglutinates Schistocytes RBC Morph Comment Immature Retic Fraction (3.0-15.9) % Retic Hgb Content (28.2-36.6) pg Sezary Cell Haptoglobin Pending PT (9.0-12.0) Seconds INR (0.9-1.1) APTT (21.0-31.0) Seconds PTT Ratio Fibrinogen (184-400) mg/dl Fibrin Degrad Products (<10) mcg/ml D-Dimer (0-500) ug/L FEU Factor VIII Activity Pending ABG pH (7.35-7.45) ABG pCO2 (35-46) mmHg ABG pO2 (80-95) mmHg ABG HCO3 (19-24) mmol/L ABG O2 Saturation (90-95) % ABG Base Excess (-9-1.8) mEq/L Terry Test (Pos) VBG pH (7.36-7.41) VBG pCO2 (38-50) mmHg VBG pO2 mmHg VBG HCO3 mmol/L VBG O2 Saturation % VBG Base Excess mEq/L Barometric Pressure mm/Hg Oxygen Given Sodium (136-145) mmol/L Potassium (3.5-5.1) mmol/L Chloride (98-107) mmol/L Carbon Dioxide (21-32) mmol/L Anion Gap (3-11) BUN (7-18) mg/dl Creatinine (0.6-1.2) mg/dl Est Cr Clr Drug Dosing ml/min Est GFR ( Amer) ml/min Est GFR (Non-Af Amer) ml/min BUN/Creatinine Ratio (10-20) Glucose (70-99) mg/dl Lactate (0.4-2.0) mmol/L Calcium (8.5-10.1) mg/dl Ionized Calcium (1.12-1.32) mmol/L Phosphorus (2.5-4.9) mg/dl Magnesium (1.8-2.4) mg/dl Total Bilirubin (0.2-1) mg/dl Direct Bilirubin (0-0.2) mg/dl AST (15-37) U/L ALT (12-78) U/L Alkaline Phosphatase (45-117) U/L Lactate Dehydrogenase 263 H (84-246) U/L Troponin I (0-0.045) ng/ml Total Protein (6.4-8.2) gm/dl Albumin (3.4-5.0) gm/dl Globulin (2.5-4.0) gm/dl Albumin/Globulin Ratio (0.9-2) Procalcitonin (0-0.5) ng/ml Random Cortisol mcg/dl Urine Color Urine Appearance (Clear) Urine pH (4.5-7.5) Ur Specific Man (1.000-1.030) Urine Protein (Negative) Urine Glucose (UA) (Negative) Urine Ketones (Negative) Urine Blood (Negative) Urine Nitrite (Negative) Urine Bilirubin (Negative) Urine Urobilinogen (Negative) Ur Leukocyte Esterase (Negative) Urine WBC (Auto) (0-5) /hpf Urine RBC (Auto) (0-4) /hpf U Hyaline Cast (Auto) (0-5) /lpf U Epithel Cells (Auto) (0-5) /lpf Urine Bacteria (Auto) (Negative) Nasal Screen MRSA (PCR) (Negative) Acetaminophen (10-30) ug/ml COVID-19 Eval Order SARS-CoV-2 (PCR) (Negative) Blood Type Blood Type Recheck Antibody Screen Crossmatch Transfusion React Date Transfusion React Time Tx React Symptoms Reaction Clerical Check Lab Clerical Err Check React Component Return Volume Returned Pre-Trans Blood Type Pre-Trans Vis Hemolysis Pre-Trans MAN[place]ELA (Negative) Pre-Trans [place] IgG (Negative) Pre-Trans [place] Poly (Negative) Pre-Trans [place] C3b, C3d (Negative) Post-Trans Blood Type Post-Tx Visible Hemolys Post-Trans [place]A (Negative) Post-Trans [place]A IgG (Negative) Post-Trans [place] Poly (Negative) Post-Trans [place] C3b, C3d (Negative) Post-Trans Ur Hemoglobin Reaction Path Interpret Transfusion Serv Com 01/22/21 01/22/21 01/22/21 Range/Units 01:18 01:18 01:18 WBC (4.8-10.8) K/uL RBC (4.2-5.4) M/uL Hgb (12.0-16.0) g/dL Hct (37-47) % MCV (80-100) fL MCH (25-34) pg MCHC (32-36) g/dL RDW Std Deviation (36.4-46.3) fL RDW Coeff of Roxie (11.5-14.5) % Plt Count (130-400) K/uL MPV (7.4-10.4) fL Immature Gran % (Auto) Neut % (Auto) Lymph % (Auto) [place] % (Auto) Eos % (Auto) Baso % (Auto) Reticulocyte % (Auto) (0.5-2.0) % Neut # (Auto) Lymph # (Auto) [place] # (Auto) Eos # (Auto) Baso # (Auto) Reticulocyte # (0.02-0.10) 10^6/uL Immature Gran # (Auto) Absolute Nucleated RBC Nucleated RBC % (auto) Neutrophils % (Manual) Band Neutrophils % Lymphocytes % (Manual) Prolymphocyte % Reactive Lymphs % (Man) Monocytes % (Manual) Eosinophils % (Manual) Basophils % (Manual) Metamyelocytes % (Man) Myelocytes % (Man) Promyelocytes % (Man) Blast Cells % (Manual) Plasma Cell % (Manual) Other Cells % Nucleated RBC % Neutrophils # (Manual) Band Neutrophils # Total Absolute Neuts Lymphocytes # (Manual) Prolymphocyte # Reactive Lymphs # Total Abs Lymphocytes Monocytes # (Manual) Eosinophils # (Manual) Basophils # (Manual) Metamyelocytes # (Man) Myelocytes # (Manual) Promyelocytes # (Man) Blast Cells # (Man) Plasma Cell # (Manual) Other Cells # Nucleated RBCs # (Man) Hypersegmented Neuts Hyposegmented Neuts Hypogranular Neuts Large Granular Lymphs # Lrg Granular Lymphs Hairy Cells Smudge Cells Toxic Granulation Toxic Vacuolation Dohle Bodies Karis Rods Platelet Estimate Hypogranular Platelets Clumped Platelets Giant Platelets Platelet Satelliting RBC Morphology Polychromasia Hypochromasia Poikilocytosis Basophilic Stippling Anisocytosis Microcytosis Macrocytosis Spherocytes Pappenheimer Bodies Sickle Cells Target Cells Tear Drop Cells Ovalocytes Stomatocytes [place] Bodies Echinocytes Acanthocytes (Spur) Rouleaux RBC Agglutinates Schistocytes RBC Morph Comment Immature Retic Fraction (3.0-15.9) % Retic Hgb Content (28.2-36.6) pg Sezary Cell Haptoglobin PT (9.0-12.0) Seconds INR (0.9-1.1) APTT (21.0-31.0) Seconds PTT Ratio Fibrinogen 357 (184-400) mg/dl Fibrin Degrad Products 10-40 H (<10) mcg/ml D-Dimer 3730 H* (0-500) ug/L FEU Factor VIII Activity ABG pH (7.35-7.45) ABG pCO2 (35-46) mmHg ABG pO2 (80-95) mmHg ABG HCO3 (19-24) mmol/L ABG O2 Saturation (90-95) % ABG Base Excess (-9-1.8) mEq/L Terry Test (Pos) VBG pH (7.36-7.41) VBG pCO2 (38-50) mmHg VBG pO2 mmHg VBG HCO3 mmol/L VBG O2 Saturation % VBG Base Excess mEq/L Barometric Pressure mm/Hg Oxygen Given Sodium (136-145) mmol/L Potassium (3.5-5.1) mmol/L Chloride (98-107) mmol/L Carbon Dioxide (21-32) mmol/L Anion Gap (3-11) BUN (7-18) mg/dl Creatinine (0.6-1.2) mg/dl Est Cr Clr Drug Dosing ml/min Est GFR ( Amer) ml/min Est GFR (Non-Af Amer) ml/min BUN/Creatinine Ratio (10-20) Glucose (70-99) mg/dl Lactate (0.4-2.0) mmol/L Calcium (8.5-10.1) mg/dl Ionized Calcium (1.12-1.32) mmol/L Phosphorus (2.5-4.9) mg/dl Magnesium (1.8-2.4) mg/dl Total Bilirubin (0.2-1) mg/dl Direct Bilirubin (0-0.2) mg/dl AST (15-37) U/L ALT (12-78) U/L Alkaline Phosphatase (45-117) U/L Lactate Dehydrogenase (84-246) U/L Troponin I (0-0.045) ng/ml Total Protein (6.4-8.2) gm/dl Albumin (3.4-5.0) gm/dl Globulin (2.5-4.0) gm/dl Albumin/Globulin Ratio (0.9-2) Procalcitonin (0-0.5) ng/ml Random Cortisol mcg/dl Urine Color Urine Appearance (Clear) Urine pH (4.5-7.5) Ur Specific Man (1.000-1.030) Urine Protein (Negative) Urine Glucose (UA) (Negative) Urine Ketones (Negative) Urine Blood (Negative) Urine Nitrite (Negative) Urine Bilirubin (Negative) Urine Urobilinogen (Negative) Ur Leukocyte Esterase (Negative) Urine WBC (Auto) (0-5) /hpf Urine RBC (Auto) (0-4) /hpf U Hyaline Cast (Auto) (0-5) /lpf U Epithel Cells (Auto) (0-5) /lpf Urine Bacteria (Auto) (Negative) Nasal Screen MRSA (PCR) (Negative) Acetaminophen 10 (10-30) ug/ml COVID-19 Eval Order SARS-CoV-2 (PCR) (Negative) Blood Type Blood Type Recheck Antibody Screen Crossmatch Transfusion React Date Transfusion React Time Tx React Symptoms Reaction Clerical Check Lab Clerical Err Check React Component Return Volume Returned Pre-Trans Blood Type Pre-Trans Vis Hemolysis Pre-Trans MAN[place]ELA (Negative) Pre-Trans [place] IgG (Negative) Pre-Trans [place] Poly (Negative) Pre-Trans [place] C3b, C3d (Negative) Post-Trans Blood Type Post-Tx Visible Hemolys Post-Trans [place]ELA (Negative) Post-Trans [place] IgG (Negative) Post-Trans [place] Poly (Negative) Post-Trans [place] C3b, C3d (Negative) Post-Trans Ur Hemoglobin Reaction Path Interpret Transfusion Serv Com 01/22/21 01/22/21 01/22/21 Range/Units 01:18 01:18 01:18 WBC Cancelled 0.12 L* (4.8-10.8) K/uL RBC Cancelled 2.15 L (4.2-5.4) M/uL Hgb Cancelled 5.8 L* (12.0-16.0) g/dL Hct Cancelled 18.2 L* (37-47) % MCV Cancelled 84.7 (80-100) fL MCH Cancelled 27.0 (25-34) pg MCHC Cancelled 31.9 L (32-36) g/dL RDW Std Deviation Cancelled 63.8 H (36.4-46.3) fL RDW Coeff of Roxie Cancelled 21.1 H (11.5-14.5) % Plt Count Cancelled 85 L (130-400) K/uL MPV Cancelled 9.1 (7.4-10.4) fL Immature Gran % (Auto) Cancelled Cancelled Neut % (Auto) Cancelled Cancelled Lymph % (Auto) Cancelled Cancelled [place] % (Auto) Cancelled Cancelled Eos % (Auto) Cancelled Cancelled Baso % (Auto) Cancelled Cancelled Reticulocyte % (Auto) (0.5-2.0) % Neut # (Auto) Cancelled Cancelled Lymph # (Auto) Cancelled Cancelled [place] # (Auto) Cancelled Cancelled Eos # (Auto) Cancelled Cancelled Baso # (Auto) Cancelled Cancelled Reticulocyte # (0.02-0.10) 10^6/uL Immature Gran # (Auto) Cancelled Cancelled Absolute Nucleated RBC Cancelled Nucleated RBC % (auto) Cancelled Neutrophils % (Manual) Cancelled Cancelled Band Neutrophils % Cancelled Cancelled Lymphocytes % (Manual) Cancelled Cancelled Prolymphocyte % Cancelled Cancelled Reactive Lymphs % (Man) Cancelled Cancelled Monocytes % (Manual) Cancelled Cancelled Eosinophils % (Manual) Cancelled Cancelled Basophils % (Manual) Cancelled Cancelled Metamyelocytes % (Man) Cancelled Cancelled Myelocytes % (Man) Cancelled Cancelled Promyelocytes % (Man) Cancelled Cancelled Blast Cells % (Manual) Cancelled Cancelled Plasma Cell % (Manual) Cancelled Cancelled Other Cells % Cancelled Cancelled Nucleated RBC % Cancelled Cancelled Neutrophils # (Manual) Cancelled Cancelled Band Neutrophils # Cancelled Cancelled Total Absolute Neuts Cancelled Cancelled Lymphocytes # (Manual) Cancelled Cancelled Prolymphocyte # Cancelled Cancelled Reactive Lymphs # Cancelled Cancelled Total Abs Lymphocytes Cancelled Cancelled Monocytes # (Manual) Cancelled Cancelled Eosinophils # (Manual) Cancelled Cancelled Basophils # (Manual) Cancelled Cancelled Metamyelocytes # (Man) Cancelled Cancelled Myelocytes # (Manual) Cancelled Cancelled Promyelocytes # (Man) Cancelled Cancelled Blast Cells # (Man) Cancelled Cancelled Plasma Cell # (Manual) Cancelled Cancelled Other Cells # Cancelled Cancelled Nucleated RBCs # (Man) Cancelled Cancelled Hypersegmented Neuts Cancelled Cancelled Hyposegmented Neuts Cancelled Cancelled Hypogranular Neuts Cancelled Cancelled Large Granular Lymphs Cancelled Cancelled # Lrg Granular Lymphs Cancelled Cancelled Hairy Cells Cancelled Cancelled Smudge Cells Cancelled Cancelled Toxic Granulation Cancelled Cancelled Toxic Vacuolation Cancelled Cancelled Dohle Bodies Cancelled Cancelled Karis Rods Cancelled Cancelled Platelet Estimate Cancelled Hypogranular Platelets Cancelled Cancelled Clumped Platelets Cancelled Cancelled Giant Platelets Cancelled Cancelled Platelet Satelliting Cancelled Cancelled RBC Morphology Cancelled Cancelled Polychromasia Cancelled Cancelled Hypochromasia Cancelled Cancelled Poikilocytosis Cancelled Cancelled Basophilic Stippling Cancelled Cancelled Anisocytosis Cancelled Cancelled Microcytosis Cancelled Cancelled Macrocytosis Cancelled Cancelled Spherocytes Cancelled Cancelled Pappenheimer Bodies Cancelled Cancelled Sickle Cells Cancelled Cancelled Target Cells Cancelled Cancelled Tear Drop Cells Cancelled Cancelled Ovalocytes Cancelled Cancelled Stomatocytes Cancelled Cancelled [place] Bodies Cancelled Cancelled Echinocytes Cancelled Cancelled Acanthocytes (Spur) Cancelled Cancelled Rouleaux Cancelled Cancelled RBC Agglutinates Cancelled Cancelled Schistocytes Cancelled Cancelled RBC Morph Comment Cancelled Cancelled Immature Retic Fraction (3.0-15.9) % Retic Hgb Content (28.2-36.6) pg Sezary Cell Cancelled Cancelled Haptoglobin PT (9.0-12.0) Seconds INR (0.9-1.1) APTT (21.0-31.0) Seconds PTT Ratio Fibrinogen (184-400) mg/dl Fibrin Degrad Products (<10) mcg/ml D-Dimer (0-500) ug/L FEU Factor VIII Activity ABG pH (7.35-7.45) ABG pCO2 (35-46) mmHg ABG pO2 (80-95) mmHg ABG HCO3 (19-24) mmol/L ABG O2 Saturation (90-95) % ABG Base Excess (-9-1.8) mEq/L Terry Test (Pos) VBG pH (7.36-7.41) VBG pCO2 (38-50) mmHg VBG pO2 mmHg VBG HCO3 mmol/L VBG O2 Saturation % VBG Base Excess mEq/L Barometric Pressure mm/Hg Oxygen Given Sodium 134 L (136-145) mmol/L Potassium 3.3 L D (3.5-5.1) mmol/L Chloride 107 (98-107) mmol/L Carbon Dioxide 17 L (21-32) mmol/L Anion Gap 10.0 (3-11) BUN 17 (7-18) mg/dl Creatinine 1.23 H D (0.6-1.2) mg/dl Est Cr Clr Drug Dosing 38.1 ml/min Est GFR ( Amer) 50.4 ml/min Est GFR (Non-Af Amer) 43.5 ml/min BUN/Creatinine Ratio 13.9 (10-20) Glucose 114 H (70-99) mg/dl Lactate (0.4-2.0) mmol/L Calcium 6.6 L D (8.5-10.1) mg/dl Ionized Calcium (1.12-1.32) mmol/L Phosphorus (2.5-4.9) mg/dl Magnesium 1.6 L (1.8-2.4) mg/dl Total Bilirubin 2.8 H (0.2-1) mg/dl Direct Bilirubin 2.2 H (0-0.2) mg/dl AST 92 H (15-37) U/L ALT 75 (12-78) U/L Alkaline Phosphatase 238 H (45-117) U/L Lactate Dehydrogenase (84-246) U/L Troponin I (0-0.045) ng/ml Total Protein 4.2 L D (6.4-8.2) gm/dl Albumin 2.0 L (3.4-5.0) gm/dl Globulin (2.5-4.0) gm/dl Albumin/Globulin Ratio (0.9-2) Procalcitonin (0-0.5) ng/ml Random Cortisol mcg/dl Urine Color Urine Appearance (Clear) Urine pH (4.5-7.5) Ur Specific Man (1.000-1.030) Urine Protein (Negative) Urine Glucose (UA) (Negative) Urine Ketones (Negative) Urine Blood (Negative) Urine Nitrite (Negative) Urine Bilirubin (Negative) Urine Urobilinogen (Negative) Ur Leukocyte Esterase (Negative) Urine WBC (Auto) (0-5) /hpf Urine RBC (Auto) (0-4) /hpf U Hyaline Cast (Auto) (0-5) /lpf U Epithel Cells (Auto) (0-5) /lpf Urine Bacteria (Auto) (Negative) Nasal Screen MRSA (PCR) (Negative) Acetaminophen (10-30) ug/ml COVID-19 Eval Order SARS-CoV-2 (PCR) (Negative) Blood Type Blood Type Recheck Antibody Screen Crossmatch Transfusion React Date Transfusion React Time Tx React Symptoms Reaction Clerical Check Lab Clerical Err Check React Component Return Volume Returned Pre-Trans Blood Type Pre-Trans Vis Hemolysis Pre-Trans MANUELA (Negative) Pre-Trans [place] IgG (Negative) Pre-Trans [place] Poly (Negative) Pre-Trans [place] C3b, C3d (Negative) Post-Trans Blood Type Post-Tx Visible Hemolys Post-Trans MANUELA (Negative) Post-Trans [place]A IgG (Negative) Post-Trans [place]A Poly (Negative) Post-Trans [place] C3b, C3d (Negative) Post-Trans Ur Hemoglobin Reaction Path Interpret Transfusion Serv Com 01/22/21 01/22/21 01/21/21 Range/Units 01:18 01:18 22:37 WBC (4.8-10.8) K/uL RBC (4.2-5.4) M/uL Hgb Cancelled (12.0-16.0) g/dL Hct Cancelled (37-47) % MCV (80-100) fL MCH (25-34) pg MCHC (32-36) g/dL RDW Std Deviation (36.4-46.3) fL RDW Coeff of Roxie (11.5-14.5) % Plt Count (130-400) K/uL MPV (7.4-10.4) fL Immature Gran % (Auto) Neut % (Auto) Lymph % (Auto) [place] % (Auto) Eos % (Auto) Baso % (Auto) Reticulocyte % (Auto) (0.5-2.0) % Neut # (Auto) Lymph # (Auto) [place] # (Auto) Eos # (Auto) Baso # (Auto) Reticulocyte # (0.02-0.10) 10^6/uL Immature Gran # (Auto) Absolute Nucleated RBC Nucleated RBC % (auto) Neutrophils % (Manual) Band Neutrophils % Lymphocytes % (Manual) Prolymphocyte % Reactive Lymphs % (Man) Monocytes % (Manual) Eosinophils % (Manual) Basophils % (Manual) Metamyelocytes % (Man) Myelocytes % (Man) Promyelocytes % (Man) Blast Cells % (Manual) Plasma Cell % (Manual) Other Cells % Nucleated RBC % Neutrophils # (Manual) Band Neutrophils # Total Absolute Neuts Lymphocytes # (Manual) Prolymphocyte # Reactive Lymphs # Total Abs Lymphocytes Monocytes # (Manual) Eosinophils # (Manual) Basophils # (Manual) Metamyelocytes # (Man) Myelocytes # (Manual) Promyelocytes # (Man) Blast Cells # (Man) Plasma Cell # (Manual) Other Cells # Nucleated RBCs # (Man) Hypersegmented Neuts Hyposegmented Neuts Hypogranular Neuts Large Granular Lymphs # Lrg Granular Lymphs Hairy Cells Smudge Cells Toxic Granulation Toxic Vacuolation Dohle Bodies Karis Rods Platelet Estimate Hypogranular Platelets Clumped Platelets Giant Platelets Platelet Satelliting RBC Morphology Polychromasia Hypochromasia Poikilocytosis Basophilic Stippling Anisocytosis Microcytosis Macrocytosis Spherocytes Pappenheimer Bodies Sickle Cells Target Cells Tear Drop Cells Ovalocytes Stomatocytes [place] Bodies Echinocytes Acanthocytes (Spur) Rouleaux RBC Agglutinates Schistocytes RBC Morph Comment Immature Retic Fraction (3.0-15.9) % Retic Hgb Content (28.2-36.6) pg Sezary Cell Haptoglobin PT (9.0-12.0) Seconds INR (0.9-1.1) APTT (21.0-31.0) Seconds PTT Ratio Fibrinogen (184-400) mg/dl Fibrin Degrad Products (<10) mcg/ml D-Dimer (0-500) ug/L FEU Factor VIII Activity ABG pH (7.35-7.45) ABG pCO2 (35-46) mmHg ABG pO2 (80-95) mmHg ABG HCO3 (19-24) mmol/L ABG O2 Saturation (90-95) % ABG Base Excess (-9-1.8) mEq/L Terry Test (Pos) VBG pH (7.36-7.41) VBG pCO2 (38-50) mmHg VBG pO2 mmHg VBG HCO3 mmol/L VBG O2 Saturation % VBG Base Excess mEq/L Barometric Pressure mm/Hg Oxygen Given Sodium (136-145) mmol/L Potassium (3.5-5.1) mmol/L Chloride (98-107) mmol/L Carbon Dioxide (21-32) mmol/L Anion Gap (3-11) BUN (7-18) mg/dl Creatinine (0.6-1.2) mg/dl Est Cr Clr Drug Dosing ml/min Est GFR ( Amer) ml/min Est GFR (Non-Af Amer) ml/min BUN/Creatinine Ratio (10-20) Glucose (70-99) mg/dl Lactate (0.4-2.0) mmol/L Calcium (8.5-10.1) mg/dl Ionized Calcium (1.12-1.32) mmol/L Phosphorus (2.5-4.9) mg/dl Magnesium (1.8-2.4) mg/dl Total Bilirubin (0.2-1) mg/dl Direct Bilirubin (0-0.2) mg/dl AST (15-37) U/L ALT (12-78) U/L Alkaline Phosphatase (45-117) U/L Lactate Dehydrogenase (84-246) U/L Troponin I (0-0.045) ng/ml Total Protein (6.4-8.2) gm/dl Albumin (3.4-5.0) gm/dl Globulin (2.5-4.0) gm/dl Albumin/Globulin Ratio (0.9-2) Procalcitonin (0-0.5) ng/ml Random Cortisol 67.58 mcg/dl Urine Color Urine Appearance (Clear) Urine pH (4.5-7.5) Ur Specific Man (1.000-1.030) Urine Protein (Negative) Urine Glucose (UA) (Negative) Urine Ketones (Negative) Urine Blood (Negative) Urine Nitrite (Negative) Urine Bilirubin (Negative) Urine Urobilinogen (Negative) Ur Leukocyte Esterase (Negative) Urine WBC (Auto) (0-5) /hpf Urine RBC (Auto) (0-4) /hpf U Hyaline Cast (Auto) (0-5) /lpf U Epithel Cells (Auto) (0-5) /lpf Urine Bacteria (Auto) (Negative) Nasal Screen MRSA (PCR) (Negative) Acetaminophen (10-30) ug/ml COVID-19 Eval Order SARS-CoV-2 (PCR) (Negative) Blood Type Blood Type Recheck Antibody Screen Crossmatch Transfusion React Date 01/21/2021 Transfusion React Time 220 Tx React Symptoms Reaction Clerical Check None Found Lab Clerical Err Check None Found React Component Return PCLRIRR Volume Returned 290 ML Pre-Trans Blood Type A POSITIVE Pre-Trans Vis Hemolysis No Pre-Trans MANUELA Negative (Negative) Pre-Trans MAN[place]ELA IgG Neg (Negative) Pre-Trans [place]ELA Poly Neg (Negative) Pre-Trans [place] C3b, C3d Neg (Negative) Post-Trans Blood Type A POSITIVE Post-Tx Visible Hemolys No Post-Trans MANUELA Negative (Negative) Post-Trans MAN[place]ELA IgG Neg (Negative) Post-Trans MAN[place]ELA Poly Neg (Negative) Post-Trans MAN[place]ELA C3b, C3d Neg (Negative) Post-Trans Ur Hemoglobin Reaction Path Interpret Pending Transfusion Serv Com 01/21/21 01/21/21 01/21/21 Range/Units 20:40 20:32 20:21 WBC (4.8-10.8) K/uL RBC (4.2-5.4) M/uL Hgb (12.0-16.0) g/dL Hct (37-47) % MCV (80-100) fL MCH (25-34) pg MCHC (32-36) g/dL RDW Std Deviation (36.4-46.3) fL RDW Coeff of Roxie (11.5-14.5) % Plt Count (130-400) K/uL MPV (7.4-10.4) fL Immature Gran % (Auto) Neut % (Auto) Lymph % (Auto) [place] % (Auto) Eos % (Auto) Baso % (Auto) Reticulocyte % (Auto) (0.5-2.0) % Neut # (Auto) Lymph # (Auto) [place] # (Auto) Eos # (Auto) Baso # (Auto) Reticulocyte # (0.02-0.10) 10^6/uL Immature Gran # (Auto) Absolute Nucleated RBC Nucleated RBC % (auto) Neutrophils % (Manual) Band Neutrophils % Lymphocytes % (Manual) Prolymphocyte % Reactive Lymphs % (Man) Monocytes % (Manual) Eosinophils % (Manual) Basophils % (Manual) Metamyelocytes % (Man) Myelocytes % (Man) Promyelocytes % (Man) Blast Cells % (Manual) Plasma Cell % (Manual) Other Cells % Nucleated RBC % Neutrophils # (Manual) Band Neutrophils # Total Absolute Neuts Lymphocytes # (Manual) Prolymphocyte # Reactive Lymphs # Total Abs Lymphocytes Monocytes # (Manual) Eosinophils # (Manual) Basophils # (Manual) Metamyelocytes # (Man) Myelocytes # (Manual) Promyelocytes # (Man) Blast Cells # (Man) Plasma Cell # (Manual) Other Cells # Nucleated RBCs # (Man) Hypersegmented Neuts Hyposegmented Neuts Hypogranular Neuts Large Granular Lymphs # Lrg Granular Lymphs Hairy Cells Smudge Cells Toxic Granulation Toxic Vacuolation Dohle Bodies Karis Rods Platelet Estimate Hypogranular Platelets Clumped Platelets Giant Platelets Platelet Satelliting RBC Morphology Polychromasia Hypochromasia Poikilocytosis Basophilic Stippling Anisocytosis Microcytosis Macrocytosis Spherocytes Pappenheimer Bodies Sickle Cells Target Cells Tear Drop Cells Ovalocytes Stomatocytes [place] Bodies Echinocytes Acanthocytes (Spur) Rouleaux RBC Agglutinates Schistocytes RBC Morph Comment Immature Retic Fraction (3.0-15.9) % Retic Hgb Content (28.2-36.6) pg Sezary Cell Haptoglobin PT (9.0-12.0) Seconds INR (0.9-1.1) APTT (21.0-31.0) Seconds PTT Ratio Fibrinogen (184-400) mg/dl Fibrin Degrad Products (<10) mcg/ml D-Dimer (0-500) ug/L FEU Factor VIII Activity ABG pH (7.35-7.45) ABG pCO2 (35-46) mmHg ABG pO2 (80-95) mmHg ABG HCO3 (19-24) mmol/L ABG O2 Saturation (90-95) % ABG Base Excess (-9-1.8) mEq/L Terry Test (Pos) VBG pH (7.36-7.41) VBG pCO2 (38-50) mmHg VBG pO2 mmHg VBG HCO3 mmol/L VBG O2 Saturation % VBG Base Excess mEq/L Barometric Pressure mm/Hg Oxygen Given Sodium (136-145) mmol/L Potassium (3.5-5.1) mmol/L Chloride (98-107) mmol/L Carbon Dioxide (21-32) mmol/L Anion Gap (3-11) BUN (7-18) mg/dl Creatinine (0.6-1.2) mg/dl Est Cr Clr Drug Dosing ml/min Est GFR ( Amer) ml/min Est GFR (Non-Af Amer) ml/min BUN/Creatinine Ratio (10-20) Glucose (70-99) mg/dl Lactate (0.4-2.0) mmol/L Calcium (8.5-10.1) mg/dl Ionized Calcium (1.12-1.32) mmol/L Phosphorus (2.5-4.9) mg/dl Magnesium (1.8-2.4) mg/dl Total Bilirubin (0.2-1) mg/dl Direct Bilirubin (0-0.2) mg/dl AST (15-37) U/L ALT (12-78) U/L Alkaline Phosphatase (45-117) U/L Lactate Dehydrogenase (84-246) U/L Troponin I (0-0.045) ng/ml Total Protein (6.4-8.2) gm/dl Albumin (3.4-5.0) gm/dl Globulin (2.5-4.0) gm/dl Albumin/Globulin Ratio (0.9-2) Procalcitonin (0-0.5) ng/ml Random Cortisol mcg/dl Urine Color Dark Yellow Urine Appearance Clear (Clear) Urine pH 5.5 (4.5-7.5) Ur Specific Man 1.018 (1.000-1.030) Urine Protein 1+ H (Negative) Urine Glucose (UA) Negative (Negative) Urine Ketones Trace H (Negative) Urine Blood 1+ H (Negative) Urine Nitrite Positive A (Negative) Urine Bilirubin Negative (Negative) Urine Urobilinogen Positive H (Negative) Ur Leukocyte Esterase Negative (Negative) Urine WBC (Auto) 1-5 (0-5) /hpf Urine RBC (Auto) 5-10 H (0-4) /hpf U Hyaline Cast (Auto) 1-5 (0-5) /lpf U Epithel Cells (Auto) >30 H (0-5) /lpf Urine Bacteria (Auto) 2+ H (Negative) Nasal Screen MRSA (PCR) (Negative) Acetaminophen (10-30) ug/ml COVID-19 Eval Order SARS-CoV-2 (PCR) (Negative) Blood Type A Positive Blood Type Recheck A Positive Antibody Screen NEGATIVE Crossmatch See Detail Transfusion React Date Transfusion React Time Tx React Symptoms Reaction Clerical Check Lab Clerical Err Check React Component Return Volume Returned Pre-Trans Blood Type Pre-Trans Vis Hemolysis Pre-Trans MANUELA (Negative) Pre-Trans MANUELA IgG (Negative) Pre-Trans MANUELA Poly (Negative) Pre-Trans MANUELA C3b, C3d (Negative) Post-Trans Blood Type Post-Tx Visible Hemolys Post-Trans MANUELA (Negative) Post-Trans MANUELA IgG (Negative) Post-Trans MANUELA Poly (Negative) Post-Trans MANUELA C3b, C3d (Negative) Post-Trans Ur Hemoglobin Reaction Path Interpret Transfusion Serv Com 01/21/21 01/21/21 01/21/21 Range/Units 19:15 19:15 17:56 WBC (4.8-10.8) K/uL RBC (4.2-5.4) M/uL Hgb (12.0-16.0) g/dL Hct (37-47) % MCV (80-100) fL MCH (25-34) pg MCHC (32-36) g/dL RDW Std Deviation (36.4-46.3) fL RDW Coeff of Roxie (11.5-14.5) % Plt Count (130-400) K/uL MPV (7.4-10.4) fL Immature Gran % (Auto) Neut % (Auto) Lymph % (Auto) [place] % (Auto) Eos % (Auto) Baso % (Auto) Reticulocyte % (Auto) (0.5-2.0) % Neut # (Auto) Lymph # (Auto) [place] # (Auto) Eos # (Auto) Baso # (Auto) Reticulocyte # (0.02-0.10) 10^6/uL Immature Gran # (Auto) Absolute Nucleated RBC Nucleated RBC % (auto) Neutrophils % (Manual) Band Neutrophils % Lymphocytes % (Manual) Prolymphocyte % Reactive Lymphs % (Man) Monocytes % (Manual) Eosinophils % (Manual) Basophils % (Manual) Metamyelocytes % (Man) Myelocytes % (Man) Promyelocytes % (Man) Blast Cells % (Manual) Plasma Cell % (Manual) Other Cells % Nucleated RBC % Neutrophils # (Manual) Band Neutrophils # Total Absolute Neuts Lymphocytes # (Manual) Prolymphocyte # Reactive Lymphs # Total Abs Lymphocytes Monocytes # (Manual) Eosinophils # (Manual) Basophils # (Manual) Metamyelocytes # (Man) Myelocytes # (Manual) Promyelocytes # (Man) Blast Cells # (Man) Plasma Cell # (Manual) Other Cells # Nucleated RBCs # (Man) Hypersegmented Neuts Hyposegmented Neuts Hypogranular Neuts Large Granular Lymphs # Lrg Granular Lymphs Hairy Cells Smudge Cells Toxic Granulation Toxic Vacuolation Dohle Bodies Karis Rods Platelet Estimate Hypogranular Platelets Clumped Platelets Giant Platelets Platelet Satelliting RBC Morphology Polychromasia Hypochromasia Poikilocytosis Basophilic Stippling Anisocytosis Microcytosis Macrocytosis Spherocytes Pappenheimer Bodies Sickle Cells Target Cells Tear Drop Cells Ovalocytes Stomatocytes [place] Bodies Echinocytes Acanthocytes (Spur) Rouleaux RBC Agglutinates Schistocytes RBC Morph Comment Immature Retic Fraction (3.0-15.9) % Retic Hgb Content (28.2-36.6) pg Sezary Cell Haptoglobin PT (9.0-12.0) Seconds INR (0.9-1.1) APTT (21.0-31.0) Seconds PTT Ratio Fibrinogen (184-400) mg/dl Fibrin Degrad Products (<10) mcg/ml D-Dimer (0-500) ug/L FEU Factor VIII Activity ABG pH (7.35-7.45) ABG pCO2 (35-46) mmHg ABG pO2 (80-95) mmHg ABG HCO3 (19-24) mmol/L ABG O2 Saturation (90-95) % ABG Base Excess (-9-1.8) mEq/L Terry Test (Pos) VBG pH (7.36-7.41) VBG pCO2 (38-50) mmHg VBG pO2 mmHg VBG HCO3 mmol/L VBG O2 Saturation % VBG Base Excess mEq/L Barometric Pressure mm/Hg Oxygen Given Sodium (136-145) mmol/L Potassium (3.5-5.1) mmol/L Chloride (98-107) mmol/L Carbon Dioxide (21-32) mmol/L Anion Gap (3-11) BUN (7-18) mg/dl Creatinine (0.6-1.2) mg/dl Est Cr Clr Drug Dosing ml/min Est GFR ( Amer) ml/min Est GFR (Non-Af Amer) ml/min BUN/Creatinine Ratio (10-20) Glucose (70-99) mg/dl Lactate 1.3 (0.4-2.0) mmol/L Calcium (8.5-10.1) mg/dl Ionized Calcium (1.12-1.32) mmol/L Phosphorus (2.5-4.9) mg/dl Magnesium (1.8-2.4) mg/dl Total Bilirubin (0.2-1) mg/dl Direct Bilirubin (0-0.2) mg/dl AST (15-37) U/L ALT (12-78) U/L Alkaline Phosphatase (45-117) U/L Lactate Dehydrogenase (84-246) U/L Troponin I (0-0.045) ng/ml Total Protein (6.4-8.2) gm/dl Albumin (3.4-5.0) gm/dl Globulin (2.5-4.0) gm/dl Albumin/Globulin Ratio (0.9-2) Procalcitonin (0-0.5) ng/ml Random Cortisol mcg/dl Urine Color Urine Appearance (Clear) Urine pH (4.5-7.5) Ur Specific Man (1.000-1.030) Urine Protein (Negative) Urine Glucose (UA) (Negative) Urine Ketones (Negative) Urine Blood (Negative) Urine Nitrite (Negative) Urine Bilirubin (Negative) Urine Urobilinogen (Negative) Ur Leukocyte Esterase (Negative) Urine WBC (Auto) (0-5) /hpf Urine RBC (Auto) (0-4) /hpf U Hyaline Cast (Auto) (0-5) /lpf U Epithel Cells (Auto) (0-5) /lpf Urine Bacteria (Auto) (Negative) Nasal Screen MRSA (PCR) (Negative) Acetaminophen (10-30) ug/ml COVID-19 Eval Order Covid19 at [facility] SARS-CoV-2 (PCR) NEGATIVE (Negative) Blood Type Blood Type Recheck Antibody Screen Crossmatch Transfusion React Date Transfusion React Time Tx React Symptoms Reaction Clerical Check Lab Clerical Err Check React Component Return Volume Returned Pre-Trans Blood Type Pre-Trans Vis Hemolysis Pre-Trans MANUELA (Negative) Pre-Trans MANUELA IgG (Negative) Pre-Trans MANUELA Poly (Negative) Pre-Trans MANUELA C3b, C3d (Negative) Post-Trans Blood Type Post-Tx Visible Hemolys Post-Trans MANUELA (Negative) Post-Trans MANUELA IgG (Negative) Post-Trans MANUELA Poly (Negative) Post-Trans MANUELA C3b, C3d (Negative) Post-Trans Ur Hemoglobin Reaction Path Interpret Transfusion Serv Com 01/21/21 01/21/21 01/21/21 Range/Units 17:56 17:56 17:56 WBC 0.13 L* (4.8-10.8) K/uL RBC 2.43 L (4.2-5.4) M/uL Hgb 6.5 L* (12.0-16.0) g/dL Hct 19.9 L* (37-47) % MCV 81.9 (80-100) fL MCH 26.7 (25-34) pg MCHC 32.7 (32-36) g/dL RDW Std Deviation 60.8 H (36.4-46.3) fL RDW Coeff of Roxie 20.5 H (11.5-14.5) % Plt Count 168 (130-400) K/uL MPV 8.8 (7.4-10.4) fL Immature Gran % (Auto) Cancelled Neut % (Auto) Cancelled Lymph % (Auto) Cancelled [place] % (Auto) Cancelled Eos % (Auto) Cancelled Baso % (Auto) Cancelled Reticulocyte % (Auto) (0.5-2.0) % Neut # (Auto) Cancelled Lymph # (Auto) Cancelled [place] # (Auto) Cancelled Eos # (Auto) Cancelled Baso # (Auto) Cancelled Reticulocyte # (0.02-0.10) 10^6/uL Immature Gran # (Auto) Cancelled Absolute Nucleated RBC Nucleated RBC % (auto) Neutrophils % (Manual) Cancelled Band Neutrophils % Cancelled Lymphocytes % (Manual) Cancelled Prolymphocyte % Cancelled Reactive Lymphs % (Man) Cancelled Monocytes % (Manual) Cancelled Eosinophils % (Manual) Cancelled Basophils % (Manual) Cancelled Metamyelocytes % (Man) Cancelled Myelocytes % (Man) Cancelled Promyelocytes % (Man) Cancelled Blast Cells % (Manual) Cancelled Plasma Cell % (Manual) Cancelled Other Cells % Cancelled Nucleated RBC % Cancelled Neutrophils # (Manual) Cancelled Band Neutrophils # Cancelled Total Absolute Neuts Cancelled Lymphocytes # (Manual) Cancelled Prolymphocyte # Cancelled Reactive Lymphs # Cancelled Total Abs Lymphocytes Cancelled Monocytes # (Manual) Cancelled Eosinophils # (Manual) Cancelled Basophils # (Manual) Cancelled Metamyelocytes # (Man) Cancelled Myelocytes # (Manual) Cancelled Promyelocytes # (Man) Cancelled Blast Cells # (Man) Cancelled Plasma Cell # (Manual) Cancelled Other Cells # Cancelled Nucleated RBCs # (Man) Cancelled Hypersegmented Neuts Cancelled Hyposegmented Neuts Cancelled Hypogranular Neuts Cancelled Large Granular Lymphs Cancelled # Lrg Granular Lymphs Cancelled Hairy Cells Cancelled Smudge Cells Cancelled Toxic Granulation Cancelled Toxic Vacuolation Cancelled Dohle Bodies Cancelled Karis Rods Cancelled Platelet Estimate Hypogranular Platelets Cancelled Clumped Platelets Cancelled Giant Platelets Cancelled Platelet Satelliting Cancelled RBC Morphology Cancelled Polychromasia Cancelled Hypochromasia Cancelled Poikilocytosis Cancelled Basophilic Stippling Cancelled Anisocytosis Cancelled Microcytosis Cancelled Macrocytosis Cancelled Spherocytes Cancelled Pappenheimer Bodies Cancelled Sickle Cells Cancelled Target Cells Cancelled Tear Drop Cells Cancelled Ovalocytes Cancelled Stomatocytes Cancelled [place] Bodies Cancelled Echinocytes Cancelled Acanthocytes (Spur) Cancelled Rouleaux Cancelled RBC Agglutinates Cancelled Schistocytes Cancelled RBC Morph Comment Cancelled Immature Retic Fraction (3.0-15.9) % Retic Hgb Content (28.2-36.6) pg Sezary Cell Cancelled Haptoglobin PT 11.2 (9.0-12.0) Seconds INR 1.1 (0.9-1.1) APTT 33.1 H (21.0-31.0) Seconds PTT Ratio 1.3 Fibrinogen (184-400) mg/dl Fibrin Degrad Products (<10) mcg/ml D-Dimer (0-500) ug/L FEU Factor VIII Activity ABG pH (7.35-7.45) ABG pCO2 (35-46) mmHg ABG pO2 (80-95) mmHg ABG HCO3 (19-24) mmol/L ABG O2 Saturation (90-95) % ABG Base Excess (-9-1.8) mEq/L Terry Test (Pos) VBG pH (7.36-7.41) VBG pCO2 (38-50) mmHg VBG pO2 mmHg VBG HCO3 mmol/L VBG O2 Saturation % VBG Base Excess mEq/L Barometric Pressure mm/Hg Oxygen Given Sodium (136-145) mmol/L Potassium (3.5-5.1) mmol/L Chloride (98-107) mmol/L Carbon Dioxide (21-32) mmol/L Anion Gap (3-11) BUN (7-18) mg/dl Creatinine (0.6-1.2) mg/dl Est Cr Clr Drug Dosing ml/min Est GFR ( Amer) ml/min Est GFR (Non-Af Amer) ml/min BUN/Creatinine Ratio (10-20) Glucose (70-99) mg/dl Lactate (0.4-2.0) mmol/L Calcium (8.5-10.1) mg/dl Ionized Calcium (1.12-1.32) mmol/L Phosphorus (2.5-4.9) mg/dl Magnesium (1.8-2.4) mg/dl Total Bilirubin (0.2-1) mg/dl Direct Bilirubin (0-0.2) mg/dl AST (15-37) U/L ALT (12-78) U/L Alkaline Phosphatase (45-117) U/L Lactate Dehydrogenase (84-246) U/L Troponin I (0-0.045) ng/ml Total Protein (6.4-8.2) gm/dl Albumin (3.4-5.0) gm/dl Globulin (2.5-4.0) gm/dl Albumin/Globulin Ratio (0.9-2) Procalcitonin 0.52 H (0-0.5) ng/ml Random Cortisol mcg/dl Urine Color Urine Appearance (Clear) Urine pH (4.5-7.5) Ur Specific Man (1.000-1.030) Urine Protein (Negative) Urine Glucose (UA) (Negative) Urine Ketones (Negative) Urine Blood (Negative) Urine Nitrite (Negative) Urine Bilirubin (Negative) Urine Urobilinogen (Negative) Ur Leukocyte Esterase (Negative) Urine WBC (Auto) (0-5) /hpf Urine RBC (Auto) (0-4) /hpf U Hyaline Cast (Auto) (0-5) /lpf U Epithel Cells (Auto) (0-5) /lpf Urine Bacteria (Auto) (Negative) Nasal Screen MRSA (PCR) (Negative) Acetaminophen (10-30) ug/ml COVID-19 Eval Order SARS-CoV-2 (PCR) (Negative) Blood Type Blood Type Recheck Antibody Screen Crossmatch Transfusion React Date Transfusion React Time Tx React Symptoms Reaction Clerical Check Lab Clerical Err Check React Component Return Volume Returned Pre-Trans Blood Type Pre-Trans Vis Hemolysis Pre-Trans MANUELA (Negative) Pre-Trans MANUELA IgG (Negative) Pre-Trans MANUELA Poly (Negative) Pre-Trans MANUELA C3b, C3d (Negative) Post-Trans Blood Type Post-Tx Visible Hemolys Post-Trans MANUELA (Negative) Post-Trans MANUELA IgG (Negative) Post-Trans MANUELA Poly (Negative) Post-Trans MANUELA C3b, C3d (Negative) Post-Trans Ur Hemoglobin Reaction Path Interpret Transfusion Serv Com 01/21/21 Range/Units 17:56 WBC (4.8-10.8) K/uL RBC (4.2-5.4) M/uL Hgb (12.0-16.0) g/dL Hct (37-47) % MCV (80-100) fL MCH (25-34) pg MCHC (32-36) g/dL RDW Std Deviation (36.4-46.3) fL RDW Coeff of Roxie (11.5-14.5) % Plt Count (130-400) K/uL MPV (7.4-10.4) fL Immature Gran % (Auto) Neut % (Auto) Lymph % (Auto) [place] % (Auto) Eos % (Auto) Baso % (Auto) Reticulocyte % (Auto) (0.5-2.0) % Neut # (Auto) Lymph # (Auto) [place] # (Auto) Eos # (Auto) Baso # (Auto) Reticulocyte # (0.02-0.10) 10^6/uL Immature Gran # (Auto) Absolute Nucleated RBC Nucleated RBC % (auto) Neutrophils % (Manual) Band Neutrophils % Lymphocytes % (Manual) Prolymphocyte % Reactive Lymphs % (Man) Monocytes % (Manual) Eosinophils % (Manual) Basophils % (Manual) Metamyelocytes % (Man) Myelocytes % (Man) Promyelocytes % (Man) Blast Cells % (Manual) Plasma Cell % (Manual) Other Cells % Nucleated RBC % Neutrophils # (Manual) Band Neutrophils # Total Absolute Neuts Lymphocytes # (Manual) Prolymphocyte # Reactive Lymphs # Total Abs Lymphocytes Monocytes # (Manual) Eosinophils # (Manual) Basophils # (Manual) Metamyelocytes # (Man) Myelocytes # (Manual) Promyelocytes # (Man) Blast Cells # (Man) Plasma Cell # (Manual) Other Cells # Nucleated RBCs # (Man) Hypersegmented Neuts Hyposegmented Neuts Hypogranular Neuts Large Granular Lymphs # Lrg Granular Lymphs Hairy Cells Smudge Cells Toxic Granulation Toxic Vacuolation Dohle Bodies Karis Rods Platelet Estimate Hypogranular Platelets Clumped Platelets Giant Platelets Platelet Satelliting RBC Morphology Polychromasia Hypochromasia Poikilocytosis Basophilic Stippling Anisocytosis Microcytosis Macrocytosis Spherocytes Pappenheimer Bodies Sickle Cells Target Cells Tear Drop Cells Ovalocytes Stomatocytes [place] Bodies Echinocytes Acanthocytes (Spur) Rouleaux RBC Agglutinates Schistocytes RBC Morph Comment Immature Retic Fraction (3.0-15.9) % Retic Hgb Content (28.2-36.6) pg Sezary Cell Haptoglobin PT (9.0-12.0) Seconds INR (0.9-1.1) APTT (21.0-31.0) Seconds PTT Ratio Fibrinogen (184-400) mg/dl Fibrin Degrad Products (<10) mcg/ml D-Dimer (0-500) ug/L FEU Factor VIII Activity ABG pH (7.35-7.45) ABG pCO2 (35-46) mmHg ABG pO2 (80-95) mmHg ABG HCO3 (19-24) mmol/L ABG O2 Saturation (90-95) % ABG Base Excess (-9-1.8) mEq/L Terry Test (Pos) VBG pH (7.36-7.41) VBG pCO2 (38-50) mmHg VBG pO2 mmHg VBG HCO3 mmol/L VBG O2 Saturation % VBG Base Excess mEq/L Barometric Pressure mm/Hg Oxygen Given Sodium 130 L (136-145) mmol/L Potassium 4.0 (3.5-5.1) mmol/L Chloride 98 (98-107) mmol/L Carbon Dioxide 24 (21-32) mmol/L Anion Gap 8.0 (3-11) BUN 13 (7-18) mg/dl Creatinine 0.76 (0.6-1.2) mg/dl Est Cr Clr Drug Dosing 61.7 ml/min Est GFR ( Amer) 90.2 ml/min Est GFR (Non-Af Amer) 77.8 ml/min BUN/Creatinine Ratio 16.6 (10-20) Glucose 128 H (70-99) mg/dl Lactate (0.4-2.0) mmol/L Calcium 8.2 L (8.5-10.1) mg/dl Ionized Calcium (1.12-1.32) mmol/L Phosphorus (2.5-4.9) mg/dl Magnesium 2.3 (1.8-2.4) mg/dl Total Bilirubin 1.9 H (0.2-1) mg/dl Direct Bilirubin (0-0.2) mg/dl AST 79 H (15-37) U/L ALT 79 H (12-78) U/L Alkaline Phosphatase 260 H (45-117) U/L Lactate Dehydrogenase (84-246) U/L Troponin I < 0.015 (0-0.045) ng/ml Total Protein 6.0 L (6.4-8.2) gm/dl Albumin 2.8 L (3.4-5.0) gm/dl Globulin 3.2 (2.5-4.0) gm/dl Albumin/Globulin Ratio 0.9 (0.9-2) Procalcitonin (0-0.5) ng/ml Random Cortisol mcg/dl Urine Color Urine Appearance (Clear) Urine pH (4.5-7.5) Ur Specific Man (1.000-1.030) Urine Protein (Negative) Urine Glucose (UA) (Negative) Urine Ketones (Negative) Urine Blood (Negative) Urine Nitrite (Negative) Urine Bilirubin (Negative) Urine Urobilinogen (Negative) Ur Leukocyte Esterase (Negative) Urine WBC (Auto) (0-5) /hpf Urine RBC (Auto) (0-4) /hpf U Hyaline Cast (Auto) (0-5) /lpf U Epithel Cells (Auto) (0-5) /lpf Urine Bacteria (Auto) (Negative) Nasal Screen MRSA (PCR) (Negative) Acetaminophen (10-30) ug/ml COVID-19 Eval Order SARS-CoV-2 (PCR) (Negative) Blood Type Blood Type Recheck Antibody Screen Crossmatch Transfusion React Date Transfusion React Time Tx React Symptoms Reaction Clerical Check Lab Clerical Err Check React Component Return Volume Returned Pre-Trans Blood Type Pre-Trans Vis Hemolysis Pre-Trans MANUELA (Negative) Pre-Trans MANUELA IgG (Negative) Pre-Trans MANUELA Poly (Negative) Pre-Trans MANUELA C3b, C3d (Negative) Post-Trans Blood Type Post-Tx Visible Hemolys Post-Trans MANUELA (Negative) Post-Trans MANUELA IgG (Negative) Post-Trans MANUELA Poly (Negative) Post-Trans MANUELA C3b, C3d (Negative) Post-Trans Ur Hemoglobin Reaction Path Interpret Transfusion Serv Com
[2021-01-22 15:28] LABS: iSTAT Art Bld Gas pCO2 Correct 20 mmHg (35-46); iSTAT Art Bld Gas pH Corrected 7.429 (7.35-7.45); iSTAT Arterial Blood Gas HCO3 13 meg/L (19-24); iSTAT Arterial Blood Gas pCO2 19 mmHg (35-46); iSTAT Arterial Blood Gas pH 7.45 (7.35-7.45); iSTAT Arterial Blood Gas pO2 53 mmHg (80-95); iSTAT Arterial Blood Gas pO2 C 57; iSTAT Carbon Dioxide 13 mmol/L (24-31); iSTAT Hematocrit < 15 % (37-47); iSTAT Potassium 3.3 mmol/L (3.3-5.0); iSTAT Site Art Line; iSTAT Sodium 133 mmol/L (135-144)
--- NOTE | 2021-01-22 16:52 | Electrocardiogram Report ---
Test Reason : Blood Pressure : / mmHG Vent. Rate : 110 BPM Atrial Rate : 110 BPM P-R Int : 142 ms QRS Dur : 066 ms QT Int : 314 ms P-R-T Axes : 033 016 022 degrees QTc Int : 424 ms Poor data quality, interpretation may be adversely affected Sinus tachycardia Otherwise normal ECG When compared with ECG of 11-DEC-2020 20:31, No significant change Confirmed by Eleuterio Ghotra ([id number]) on 01/22/2021 4:51:42 PM Referred By: REFERRED SELF Confirmed By:Eleuterio Ghotra
[2021-01-22] MEDS: SIMVASTATIN 20 MG TAB PO SCH (19:30)
[2021-01-22 20:17] LABS: Base Excess ABG -10.1 mEq/L (-9-1.8); HCO3 ABG 14 mmol/L (19-24); Oxygen Saturation ABG 96.3 % (90-95); PCO2 ABG 23 mmHg (35-46); PO2 ABG 80 mmHg (80-95); pH ABG 7.39 (7.35-7.45)
[2021-01-22 20:18] LABS: Allen Test Pos (Pos)
[2021-01-22 20:21] LABS: INR 1.8 (0.9-1.1); Prothrombin Time 17.7 Seconds (9.0-12.0)
[2021-01-22 20:36] LABS: Albumin Level 1.9 gm/dl (3.4-5.0); BUN Creatinine Ratio 18.3 (10-20); Bilirubin Direct 4.7 mg/dl (0-0.2); Bilirubin,Total 5.5 mg/dl (0.2-1); Calcium 6.2 mg/dl (8.5-10.1); Est GFR (Non-African American) 34.5 ml/min; Magnesium 2.5 mg/dl (1.8-2.4); Phosphorus 3.7 mg/dl (2.5-4.9); Potassium 4.2 mmol/L (3.5-5.1); Total Protein 4.6 gm/dl (6.4-8.2); Troponin I 1.37 ng/ml (0-0.045)
[2021-01-22 20:44] LABS: Hematocrit (blood only) 25.3 % (37-47); Hemoglobin 8.8 g/dL (12.0-16.0); Mean Corpuscular Hemoglobin 27.7 pg (25-34); Mean Corpuscular Hgb Conc 34.8 g/dL (32-36); Mean Corpuscular Volume 79.6 fL (80-100); Mean Platelet Volume 9.3 fL (7.4-10.4); Platelet Count 90 K/uL (130-400); RDW Coefficient of Variation 19.7 % (11.5-14.5); RDW Standard Deviation 55.8 fL (36.4-46.3); Red Blood Count 3.18 M/uL (4.2-5.4); White Blood Count 0.24 K/uL (4.8-10.8)
[2021-01-23] MEDS: VASOPRESSIN 20 UNITS in 0.9 % SODIUM CHLORIDE 100 ML IV SCH ×2 (01:33→10:26)
[2021-01-23 05:22] LABS: INR 1.8 (0.9-1.1); Prothrombin Time 17.1 Seconds (9.0-12.0)
[2021-01-23 05:26] LABS: Hematocrit (blood only) 22.6 % (37-47); Hemoglobin 7.9 g/dL (12.0-16.0); Mean Corpuscular Hemoglobin 27.5 pg (25-34); Mean Corpuscular Volume 78.7 fL (80-100); Mean Platelet Volume 9.1 fL (7.4-10.4); Platelet Count 66 K/uL (130-400); RDW Coefficient of Variation 20.3 % (11.5-14.5); RDW Standard Deviation 57.8 fL (36.4-46.3); Red Blood Count 2.87 M/uL (4.2-5.4); White Blood Count 0.12 K/uL (4.8-10.8)
[2021-01-23 05:47] LABS: Albumin Level 1.8 gm/dl (3.4-5.0); BUN Creatinine Ratio 22.3 (10-20); Calcium 6.4 mg/dl (8.5-10.1); Creatinine Clr Calc Pharmacy 37.5 ml/min; Est GFR (Non-African American) 38.9 ml/min; Magnesium 2.4 mg/dl (1.8-2.4); Potassium 4.5 mmol/L (3.5-5.1)
[2021-01-23] MEDS: NORMOSOL-R 1,000 ML IV SCH ×2 (05:52→14:45)
[2021-01-23 05:56] LABS: Bilirubin,Total 3.5 mg/dl (0.2-1); Total Protein 4.6 gm/dl (6.4-8.2)
--- NOTE | 2021-01-23 06:38 | Critical Care Progress Note ---
Date of Service January 23, 2021 Assessment & Plan (1) Admitted to intensive care unit: Plan: NEURO - CAM ICU: NEGATIVE CARDIAC/VASCULAR - Hypotension: Likely most related to sepsis, unfortunately, there may also be component of low blood volume contributing as well. Patient received appropriate crystalloid boluses. Continue levophed, vasopressin Continue w/ IVF in the setting of sepsis. Patient is s/p 3u pRBC infusion (one unit 01/21, two units 01/22) Continue telemetry RESPIRATORY - Acute Hypoxia: * Chest x-ray that was obtained after IJ placement demonstrates development of pulmonary edema pattern. Unfortunately, in the setting of concerns for recent transfusion reaction, the patient may certainly be experiencing a transfusion associated lung injury. * Currently satting well on 2L NC GI/NUTRITION - NPO in the setting of acuity of illness and need for high-dose pressors. Patient continues with diarrhea, though C. diff negative Prophylaxis: Famotidine RENAL/LYTES - STEVE: Patient with STEVE on admission (creatinine of 1.2-1.5, baseline ~0.8) Has since improved to 1.35 with IVF Continue NSS at 125mL/hr Gabapentin held at this time Hyponatremia: Of uncertain etiology at this point. Received appropriate amounts of crystalloid. Continue to monitor. Hypocalcemia: Ionized calclium remains low at 0.9 Will give calcium gluconate 2g at this time - Cystitis with UTI: Urine cultures pending. Continue with cefepime and vancomycin. Coffey in place - Strict I&Os. ENDO - No history of diabetes. BSGs per unit protocol. ISS --> gtt per unit policy. Hypothyroidism: Continue with home dose of levothyroxine. HEME - Anemia: Likely secondary to chemotherapeutic agent. Unfortunately, patient had likely transfusion reaction during initial unit of PRBCs. Repeat H&H upon arrival in the ICU demonstrates drop in H&H representing likely delusional component status post fluid resuscitation. Hospitalist did reach out to oncology, patient will require transfusion. Irradiated blood was assessed and transfusion will be initiated slowly with titration up as tolerated. Neutropenia: Again, secondary to chemotherapeutic agent. Given the rapid decline in patient's symptoms and fevers, rigors, tachycardia, hypotension, there is concern for bacteremia; cultures spending Oncology consulted ID - Severe sepsis with septic shock: Secondary to urinary source. Blood and urine cultures pending. Receiving cefepime and vancomycin. Procalcitonin elevated. LINES/IV ACCESS - PIVs x2 RIGHT IJ CVL RIGHT radial arterial line Coffey catheter DVT PROPHYLAXIS - Heparin 5000u bid Thank you for the opportunity to participate in this patient's care. Please see Dr. Miller's attestation for further information. Admission and Anticipated Discharge Date Admission Date: January 21, 2021 Supervising Physician Co-Signing Physician Notes Dr. Garcia was resident physician during care of patient. I separately evaluated patient for samano portions of the history and the exam. I was present during the critical portion of medical decision making, and I discussed the case with the resident. I generally agree with the findings and plan. Continue current antibiotics repeat blood cultures tomorrow morning, introduce Neupogen as patient has gram-negative bacteremia. Decreasing vasoactive medication requirement however still present, random cortisol adequate. Remain n.p.o., diarrhea with negative C. difficile. Acute kidney injury slowly improving, H&H remained holding steady. Patient remains critically ill. Was on gabapentin for postherpetic neuralgia, will hold gabapentin given acute kidney injury and GI issues at this time. No evidence of new lesions will continue with current contact precautions. Oncology consult for routine follow-up. Lactate remains elevated will add thiamine 200 mg daily. 2 g calcium gluconate for low ionized calcium. DVT prophylaxis will be heparin 5000 twice daily Subjective Patient seen and evaluated at bedside this morning. Patient is without acute complaints at this time. Patient denies CP, SOB, abdominal pain, nausea, vomiting, lightheadedness, dizziness, and diarrhea. Review of Systems Review of Systems: See HPI Physical Exam Physical Exam: Constitutional: well-appearing, no acute distress CV: regular rhythm, no murmur appreciated, extremities well-perfused Resp: CTABL, no wheezes/rales/rhonchi appreciated, no increased work of breathing GI: soft, nondistended, nontender, BS normoactive Neuro: AOx4, no focal neurological deficits appreciated Results & Data Results & Data ([facility]) Vital Signs (Past 12 Hours) Vital Signs Temp Pulse Resp BP Pulse Ox Pulse Ox 01/23/21 06:09 37.2 C 93 H 28 H 101/66 97 01/23/21 05:39 37.2 C 94 H 27 H 96/62 L 100 01/23/21 05:09 37.2 C 95 H 28 H 104/69 99 01/23/21 04:39 37.1 C 95 H 29 H 115/68 98 01/23/21 04:09 37.3 C 99 H 28 H 109/66 98 01/23/21 03:39 37.2 C 99 H 28 H 104/65 98 01/23/21 03:09 37.2 C 99 H 28 H 118/66 98 01/23/21 02:39 37.2 C 100 H 24 109/68 98 01/23/21 02:09 37.3 C 99 H 27 H 107/69 99 01/23/21 01:39 37.3 C 98 H 29 H 114/77 98 01/23/21 01:09 37.5 C 102 H 24 106/67 99 01/23/21 01:03 107 H 98 01/23/21 00:39 37.5 C 104 H 27 H 104/67 97 01/23/21 00:09 37.5 C 105 H 25 H 100/68 98 01/22/21 23:39 37.5 C 106 H 28 H 110/66 98 01/22/21 23:09 37.6 C H 106 H 24 101/62 99 01/22/21 22:39 37.6 C H 106 H 29 H 98/64 L 98 01/22/21 22:09 37.7 C H 108 H 29 H 106/67 96 01/22/21 21:39 109 H 33 H 103/71 85 L 01/22/21 21:09 110 H 38 H 107/68 98 01/22/21 20:39 113 H 35 H 107/70 98 01/22/21 20:09 111 H 34 H 104/66 98 01/22/21 19:39 113 H 34 H 97/61 L 97 01/22/21 19:09 37.7 C H 112 H 35 H 99/66 L 97 Critical Care Time I have personally spent 45 minutes of critical care time in the direct management of this patient. This is a life/limb threatening event. This incl udes time spent evaluating patient, direct bedside care, chart review, placing orders, interpretation of diagnostic studies, discussion with consultants, patient, and/or family members regarding treatment decisions, as well as other required patient management activities. This time is exclusive of all separately billable procedures, and teaching time and separate from and in addition to any other critical care service time. Resident Activity Tracking Resident Involvement: Resident Care Provided Care Provided: Adult Hospital Medicine
[2021-01-23] MEDS: LEVOTHYROXINE SODIUM 125 MCG TABLET PO SCH (07:03)
[2021-01-23] MEDS: SODIUM CHLORIDE 0.9% 1000ML 1,000 ML IV SCH (07:21)
--- NOTE | 2021-01-23 07:42 | XRay Report ---
XR chest 1V portable HISTORY: 75 years-old Female f/u follow-up study in a patient with pulmonary opacities COMPARISON: Chest radiograph 01/22/2021 TECHNIQUE: Portable AP view of the chest FINDINGS: Right IJ central venous catheter is in unchanged positioning. Cardiac silhouette is mildly enlarged. Surgical clips are again noted projecting over the left breast, left axilla and left infrahilar distr ibution. Pulmonary vascular congestion with reticular interstitial opacities have mildly improved. No pneumothorax. Small layering pleural effusions with left greater than right bibasilar densities. Deg enerative changes of the shoulders and spine. IMPRESSION: 1. Cardiomegaly with mildly improved pulmonary edema. 2. Small pleural effusions with left greater than right bibasilar opacities suggestive of probable at electasis with pneumonitis considered less likely. ACT 112: Negative or not required by law. The above report was generated using voice recognition software. It may contain grammatical, syntax o r spelling errors. Electronically signed by: Elkin Benítez M.D. 01/23/2021 7:40 AM
[2021-01-23] MEDS: CEFEPIME 2,000 MG in SYRINGE 0 ML IV SCH (08:46)
--- NOTE | 2021-01-23 09:56 | Billing Data ---
Date of Service January 23, 2021 Coding Level of Care Code Critical Care 06 02- mins
[2021-01-23] MEDS: GABAPENTIN 300 MG CAP PO SCH (10:27)
[2021-01-23] MEDS: allopurinoL 300 MG TAB PO SCH (10:27)
[2021-01-23] MEDS: ACYCLOVIR 400 MG TAB PO SCH ×2 (10:27→20:39)
[2021-01-23] MEDS ORDERED: CALCIUM GLUCONATE 10% 2,000 MG in SODIUM CHLORIDE 0.9% 50 ML IV ONE (10:45)
[2021-01-23] MEDS: THIAMINE HCL 200 MG in SODIUM CHLORIDE 0.9% 50 ML IV SCH (10:58)
[2021-01-23] MEDS: FAMOTIDINE 20 MG in SYRINGE 3 ML IV SCH (10:58)
[2021-01-23] MEDS ORDERED: FILGRASTIM 300 MCG/ML VIAL SC SCH (11:00)
--- NOTE | 2021-01-23 16:09 | Hospitalist Progress Note ---
Date of Service January 23, 2021 Assessment & Plan (1) Sepsis: Plan: Patient is hypercholesterolemia, hypothyroidism, history of thrombophlebitis right tibial vein, angiomyolipoma of right kidney, recent diagnose of CLL, iron deficiency anemia, history of left breast cancer was admitted with urinary symptoms and febrile neutropenia. Septic shock Neutropenic fever Worsening diarrhea Possible urinary tract infection Currently patient remains under critical care. Remains on Levophed and vasopressin Continue with maintenance IV fluids Continues to have persistent diarrhea. Remains NPO. C. difficile is negative. Blood cultures and urine cultures are pending. Continue vancomycin/cefepime for now. Acute kidney injury Continue with maintenance IV fluids. Avoid nephrotoxic agents. Monitor daily BMP. Creatinine today at 1.35. Hyponatremic on admission Na today at 130 in the setting of diarrhea. Monitor daily BMP. Acute hypoxic respiratory failure Remains on 2 L of nasal cannula. Does not use any oxygen at home. Concern for possible transfusion associated lung injury. Anemia Patient has received 2 units of PRBC during this admission. hgb today at 7.9 Monitor daily cbc CLL, on acalabrutinib, which is on hold. Follow up with heme/onc. Pt follows w/ Dr. Mcelroy in [place] - who was notified by Dr. Huang. Hypothyroidism: Continue Synthroid. Hyperlipidemia: Continue statin. Gout: Continue allopurinol. Elevated LFTs: Possibly from the ongoing illness. Will follow the repeat labs. (2) Gram-negative bacteremia: (3) Neutropenic fever: Admission and Anticipated Discharge Date Admission Date: January 21, 2021 Subjective Patient is awake and alert. However she appears lethargic. Reports she feels weak. Denies any nausea or vomiting. Denies any chest pain or abdominal pain. Does have diarrhea. Rest of the review of systems negative. Review of Systems Review of Systems: All systems reviewed & are unremarkable except as noted in HPI & below Physical Exam Physical Exam: General: A&Ox3. ill appreaing female HENT: NCAT, MMM, EOMI Eyes: PERRLA Neck: Supple, normal range of motion, right central line in place CVS: normal rate and rhythm Resp: b/l corase breath sounds Abdomen: Soft, ND/NT Extremities: No c/c/e Neuro: face symmetric, strength grossly equal, no focal deficit Skin: warm and dry, no rashes/lesions/errythema MSK: normal ROM, no joint swelling/erythema Results & Data Results & Data ([facility]) Vital Signs (Past 12 Hours) Vital Signs Temp Pulse Resp BP Pulse Ox 01/23/21 13:35 36.9 C 84 28 H 01/23/21 13:30 36.9 C 85 32 H 01/23/21 13:25 36.9 C 86 27 H 100 01/23/21 13:20 36.9 C 87 31 H 100 01/23/21 13:15 36.9 C 85 30 H 98 01/23/21 13:10 36.9 C 85 28 H 100 01/23/21 13:05 36.9 C 84 28 H 99 01/23/21 13:00 36.9 C 86 27 H 94 01/23/21 12:55 36.9 C 84 29 H 94 01/23/21 12:50 36.9 C 84 31 H 100 01/23/21 12:45 36.9 C 84 28 H 98 01/23/21 12:40 36.9 C 83 29 H 99 01/23/21 12:09 36.9 C 82 22 114/78 95 01/23/21 11:39 36.9 C 85 27 H 109/73 90 01/23/21 11:09 36.9 C 88 34 H 97/72 L 99 01/23/21 10:39 37.0 C 90 29 H 114/63 93 01/23/21 10:09 37.0 C 93 H 25 H 102/73 88 L 01/23/21 09:39 37.0 C 89 30 H 113/74 99 01/23/21 09:09 37.1 C 93 H 31 H 114/66 100 01/23/21 08:39 37.2 C 90 30 H 128/67 92 01/23/21 08:09 37.2 C 91 H 22 108/72 97 01/23/21 07:39 37.2 C 93 H 27 H 107/74 98 01/23/21 07:09 37.3 C 96 H 32 H 101/70 97 01/23/21 06:39 37.2 C 95 H 28 H 98/68 L 98 01/23/21 06:09 37.2 C 93 H 28 H 101/66 97 01/23/21 05:39 37.2 C 94 H 27 H 96/62 L 100 01/23/21 05:09 37.2 C 95 H 28 H 104/69 99 01/23/21 04:39 37.1 C 95 H 29 H 115/68 98 01/23/21 04:09 37.3 C 99 H 28 H 109/66 98
[2021-01-23] MEDS: NOREPINEPHRINE/D5W 8 MG/508 ML BAG IV SCH (17:21)
[2021-01-23] MEDS ORDERED: CEFEPIME 2,000 MG in SYRINGE 0 ML IV SCH (20:00)
[2021-01-23] MEDS: SIMVASTATIN 20 MG TAB PO SCH (20:39)
[2021-01-23] MEDS: HEPARIN SOD 5,000 UNIT/0.5 ML VIAL SQ SCH (20:39)
[2021-01-24] MEDS: NORMOSOL-R 1,000 ML IV SCH (02:39)
[2021-01-24 05:43] LABS: INR 1.3 (0.9-1.1); Prothrombin Time 12.5 Seconds (9.0-12.0)
[2021-01-24 05:59] LABS: Albumin Level 1.6 gm/dl (3.4-5.0); BUN Creatinine Ratio 31.8 (10-20); Bilirubin,Total 2.7 mg/dl (0.2-1); Calcium 6.7 mg/dl (8.5-10.1); Creatinine Clr Calc Pharmacy 49.8 ml/min; Est GFR (African American) 62.5 ml/min; Est GFR (Non-African American) 53.9 ml/min; Magnesium 2.6 mg/dl (1.8-2.4); Potassium 3.8 mmol/L (3.5-5.1); Total Protein 4.5 gm/dl (6.4-8.2)
[2021-01-24] MEDS: LEVOTHYROXINE SODIUM 125 MCG TABLET PO SCH (06:18)
[2021-01-24 06:35] LABS: Hematocrit (blood only) 20.4 % (37-47); Hemoglobin 7.3 g/dL (12.0-16.0); Mean Corpuscular Hemoglobin 28.5 pg (25-34); Mean Corpuscular Hgb Conc 35.8 g/dL (32-36); Mean Corpuscular Volume 79.7 fL (80-100); Mean Platelet Volume 10.2 fL (7.4-10.4); Platelet Count 26 K/uL (130-400); RDW Coefficient of Variation 21.3 % (11.5-14.5); RDW Standard Deviation 60.7 fL (36.4-46.3); Red Blood Count 2.56 M/uL (4.2-5.4)
--- NOTE | 2021-01-24 06:50 | Critical Care Progress Note ---
Date of Service January 24, 2021 Assessment & Plan (1) Severe sepsis with septic shock: Plan: 75yo female with CLL on oral chemotherapy presenting with neutropenic fever in the setting of confirmed UTI. Severe sepsis with septic shock likely secondary to urinary source. NEURO - CAM ICU: NEGATIVE CARDIAC/VASCULAR - Hypotension: Resolved Off pressors x since yesterday RESPIRATORY - Acute Hypoxia: Resolved Chest x-ray that was obtained after IJ placement demonstrates development of pulmonary edema pattern. Unfortunately, in the setting of concerns for recent transfusion reaction, the patient may certainly be experiencing a transfusion associated lung injury. Currently satting well on 2L NC GI/NUTRITION - NPO -Regular diet progress as tolerated Patient continues with diarrhea, though C. diff negative Prophylaxis: Famotidine RENAL/LYTES - STEVE: Resolved Patient with STEVE on admission (creatinine of 1.2-1.5, baseline ~0.8) Has since improved to 1.35 with IVF Discontinue NSS at 125mL/hr Gabapentin can restart today Hyponatremia: Improving Of uncertain etiology at this point. Received appropriate amounts of crystalloid. Continue to monitor. Hypocalcemia: Improving Ionized calclium remains low at 0.9 Will give calcium gluconate 2g at this time - Cystitis with UTI: Urine cultures reviewed Continue with [id number] days Coffey in place - Strict I&Os. ENDO - No history of diabetes. BSGs per unit protocol. ISS --> gtt per unit policy. Hypothyroidism: Continue with home dose of levothyroxine. HEME - Anemia: Likely secondary to chemotherapeutic agent. Unfortunately, patient had likely transfusion reaction during initial unit of PRBCs. Repeat H&H upon arrival in the ICU demonstrates drop in H&H representing likely delusional component status post fluid resuscitation. Hospitalist did reach out to oncology, patient will require transfusion. Irradiated blood was assessed and transfusion will be initiated slowly with titration up as tolerated. Neutropenia: Again, secondary to chemotherapeutic agent. Discussed with oncology, received second dose of Neupogen today ID - Severe sepsis with septic shock: Klebsiella bacteremia. Given immunocompromise state we will continue with IV cefepime x10 days Repeat blood cultures remain negative LINES/IV ACCESS - PIVs x2 RIGHT IJ CVL discontinue today RIGHT radial arterial line discontinued today Coffey catheter DVT PROPHYLAXIS - Heparin 5000u bid hold and transition to SCDs a single agent given significant thrombocytopenia Admission and Anticipated Discharge Date Admission Date: January 21, 2021 Subjective No overnight events Physical Exam Physical Exam: General: Alert. nontoxic. Skin: Warm, dry, Head: Atraumatic Ears, nose, mouth and throat: airway patent Cardiovascular: Normal peripheral perfusion Respiratory: no respiratory distress Gastrointestinal: Non distended Musculoskeletal: No deformity Results & Data Results & Data ([facility]) Vital Signs (Past 12 Hours) Vital Signs Temp Pulse Resp BP Pulse Ox Pulse Ox 01/24/21 05:09 36.3 C L 83 27 H 109/61 100 01/24/21 04:09 36.2 C L 85 27 H 107/63 98 01/24/21 03:09 36.1 C L 82 25 H 112/61 98 01/24/21 02:09 36.1 C L 83 26 H 110/61 98 01/24/21 02:08 84 01/24/21 01:09 36.2 C L 84 26 H 111/63 98 01/24/21 01:00 99 01/24/21 00:09 36.4 C L 86 27 H 117/65 97 01/23/21 23:09 36.8 C 83 20 96/56 L 98 01/23/21 22:09 37.1 C 90 26 H 96/59 L 100 01/23/21 21:09 37.2 C 93 H 28 H 114/63 97 01/23/21 20:09 37.1 C 93 H 26 H 93/71 L 98 01/23/21 19:09 37.0 C 90 28 H 128/59 L 100 Resident Activity Tracking Resident Involvement: Resident Care Provided Care Provided: Adult [facility]
[2021-01-24] MEDS: NOREPINEPHRINE/D5W 8 MG/508 ML BAG IV SCH (06:55)
[2021-01-24] MEDS ORDERED: SODIUM CHLORIDE 0.9% 250 ML IV PRN (07:38)
[2021-01-24] MEDS ORDERED: FILGRASTIM 300 MCG/ML VIAL SQ ONE (07:45)
[2021-01-24] MEDS: ACYCLOVIR 400 MG TAB PO SCH ×2 (08:08→19:41)
[2021-01-24] MEDS: HEPARIN SOD 5,000 UNIT/0.5 ML VIAL SQ SCH (08:08)
[2021-01-24] MEDS: THIAMINE HCL 200 MG in SODIUM CHLORIDE 0.9% 50 ML IV SCH (08:08)
[2021-01-24] MEDS: FAMOTIDINE 20 MG in SYRINGE 3 ML IV SCH (08:08)
[2021-01-24] MEDS: allopurinoL 300 MG TAB PO SCH (08:09)
[2021-01-24] MEDS: CEFEPIME 2,000 MG in SYRINGE 0 ML IV SCH ×2 (08:11→16:16)
--- NOTE | 2021-01-24 08:41 | Consultation Report ---
HEMATOLOGY CONSULTATION DATE OF CONSULTATION: 01/24/2021. REASON FOR CONSULTATION: Neutropenic fever in a 75-year-old female patient with 17p chronic lymphocy tic leukemia. HISTORY OF PRESENT ILLNESS: Linda is a 75-year-old female patient with high risk chronic lymphocy tic leukemia, under the care of Dr. Mcelroy at [facility] in [place]. Linda had prior relationship with Dr. Chung Barkley. His last documentation on a [id number] visit was in late in addition to a telephone consult in the early ____ because of COVID-19. I could not elicit from Dr. Barkley's note that he had started any therapy on her and had continued observation until he de parted for a new opportunity. The patient then changed physicians and sees Dr. Mcelroy at [facility] in [facility]. Linda explains to me that she had developed a left-sided pleural effusion, underwent tho racentesis by her local pulmonology service yielding a lymphomatous pleural fluid. Based on this fin ding, Dr. Mcelroy initiated acalabrutinib and Linda estimates only being on therapy for a couple of we eks. Unfortunately, I have no baseline information on how vigorous her peripheral counts were or oth erwise. That said, Dr. Mcelroy is aware of the patient's hospitalization and acalabrutinib is currently on hold. I know little else about this patient otherwise. Apparently, her blood counts were startin g to plummet prior to admission, necessitating discontinuance of the acalabrutinib. Apparently, the patient had developed burning on urination and subsequent shaking chills. She got sick over this pas t weekend, but "I could not find help" until Thursday. Her T-max was 39.5 with pulse 130, hemoglobin 6 .5, WBCs 130, and platelets 168,000. COVID-19 PCR was negative. She was started on broad-spectrum a ntibiotics after a CT of the abdomen and pelvis revealed possible cystitis. Apparently, she decompen sated hemodynamically requiring vasopressors until this morning. The patient is awake and alert duri josé miguel today's interview. 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 PAST SURGICAL HISTORY: Status post lumpectomy and removal of groin lymph nodes in January of 2021. MEDICATIONS: Acalabrutinib 100 mg p.o. b.i.d., acyclovir 400 mg p.o. b.i.d., allopurinol 300 mg p.o. q. daily, gabapentin 300 mg p.o. b.i.d. Hydromet 5 mL p.o. q.i.d. p.r.n., levothyroxine 125 mcg p.o. q. daily, Zofran 8 mg p.o. q. 8 hours p.r.n., oxycodone 5 mg p.o. q. 4 hours p.r.n., simvastatin 20 mg p.o. q. daily. ALLERGIES: NITROFURANTOIN AND ENVIRONMENTAL DUST. FAMILY HISTORY: Noncontributory. SOCIAL HISTORY: The patient is , resides with her . She is a nonsmoker. She drinks o ccasional alcohol socially. REVIEW OF SYSTEMS: CONSTITUTIONAL: Most notably for dysuria and fever on presentation. Negative for anorexia or weight loss. SKIN: No rashes or lesions. No history of dermatoses. HEENT: Negative for headaches, lightheadedness, or dizziness. No dysphagia or sore throat. LYMPH: Positive for lymphadenopathy associated with lymphoproliferative disease. CARDIAC: Negative for coronary artery disease, no angina or palpitations. PULMONARY: Negative for COPD. Positive for prior left-sided pleural effusion, but apparently had ly mphomatous cells present. She is not dyspneic, orthopneic, or acutely short of breath. No cough or hemoptysis reported. GASTROINTESTINAL: Positive for left upper quadrant discomfort attributable to splenomegaly. No diar efrain or constipation. No hematochezia or melena stools. GENITOURINARY: As per HPI. MUSCULOSKELETAL: No focal muscle weakness. No arthralgias or myalgias. ENDOCRINE: Positive for hypothyroidism. PSYCHIATRIC: Negative for anxiety, depression, or psychoses. NEUROLOGIC: Negative for seizure, stroke, or migraine headache. HEMATOLOGIC: Positive for pancytopenia attributable to acalabrutinib and urosepsis. PHYSICAL EXAMINATION: GENERAL: A very pleasant 75-year-old female, awake, alert and appropriate, in no acute dis tress. VITAL SIGNS: Temperature 36.3, pulse 83, blood pressure 109/61, respirations 27. SKIN: Warm, dry, noncyanotic without petechiae, rash, or ecchymosis. HEENT: Head atraumatic, normocephalic. Eyes: PERRLA, EOMI. Sclerae are nonicteric. No conjunctiv al injection. Nares patent without rhinorrhea or discharge. Throat is clear. Tongue is midline. M ucous membranes are moist. No buccal lesions or ulcerations. HEART: Regular rate and rhythm. No clicks, rubs, murmurs or gallops. LUNGS: Clear to auscultation bilaterally. ABDOMEN: Soft, nontender, nondistended, without palpable hepatosplenomegaly. EXTREMITIES: No clubbing, cyanosis, or edema. Strength and pulses are equal in all 4 extremities. NEUROLOGICALLY: She is awake, alert and oriented x3. Cranial nerves grossly intact. LABORATORY DATA: WBC count 100, hemoglobin 7.3, platelet count 26,000. Sodium 133, potassium 3.8, c hloride 105, carbon dioxide 20, creatinine 1.03. BUN 33. Magnesium 2.6, total bilirubin 2.7, direct bilirubin 2.0. Procalcitonin 67.82, albumin 1.6. RADIOGRAPHIC DATA: Chest x-ray, cardiomegaly with mildly improved pulmonary edema, small pleural eff usions with left greater than right basilar opacities, probable atelectasis. IMPRESSION: 1. Urosepsis. 2. Neutropenic fever. 3. Urinary tract infection. 4. Acute hypoxic respiratory failure. 5. Chronic lymphocytic leukemia 17p deletion. PLAN: Linda is a pleasant 75-year-old female patient with a remote history of chronic lymphocytic leukemia, 17p deletion, which portends a more aggressive disease. Linda no longer has a relation ship with [facility], currently under Dr. Mcelroy's care at [facility] in [place]. Dr. Mcelroy initiated acalabruti nib a couple of weeks ago according to Linda after she developed lymphomatous pleural effusion. I know little else about her course of CLL. Apparently, she has history of breast cancer as well. Dr Katelyn Barkley saw her in the past. She was on observation as per his early 2019 clinical note. I agree with medical management. Apparently, she has had a tenuous clinical course requiring vasopre ssors and broad-spectrum antibiotics. Clearly, she is myelosuppressed in conjunction with effect of acalabrutinib, which is generally profound when treatment is first initiated. Would agree with rochelle yuing acalabrutinib and support via transfusion and provide daily Neupogen until her neutrophil count recovers. According to Linda, her assistant basketball coach in [place] is aware of her admission and will wong ve appropriate followup thereafter. I will continue to follow her periodically during hospital stay, but really have nothing further to add. Job ID: [id number]
--- NOTE | 2021-01-24 08:57 | XRay Report ---
XR chest 1V portable INDICATION: MN ^f/u . TECHNIQUE: Single frontal radiograph of the chest was obtained. Comparison: Comparison is made to chest one view 01/23/2021 FINDINGS: Lungs are slightly underinflated. The cardiomediastinal silhouette is stable. Bilateral lower lung op acities are seen. There is prominence and indistinctness of the pulmonary vasculature and [place] B li gabrielle noted. There are bilateral layering pleural effusions. IMPRESSION: 1. Moderate pulmonary edema, increased from prior exam. 2. Bilateral pleural effusions, left greater than right. 3. Bilateral lower lung airspace opacities likely represent layering effusions with or without super imposed atelectasis, aspiration, and/or pneumonia. ACT 112: Negative or not required by law. Electronically signed by: Kal Godoy M.D. 01/24/2021 8:55 AM
[2021-01-24 09:00] LABS: Hematocrit (blood only) 21.6 % (37-47); Hemoglobin 7.5 g/dL (12.0-16.0); Mean Corpuscular Hemoglobin 27.6 pg (25-34); Mean Corpuscular Hgb Conc 34.7 g/dL (32-36); Mean Corpuscular Volume 79.4 fL (80-100); Platelet Count 31 K/uL (130-400); RDW Coefficient of Variation 21.2 % (11.5-14.5); RDW Standard Deviation 61.1 fL (36.4-46.3); Red Blood Count 2.72 M/uL (4.2-5.4); White Blood Count 0.14 K/uL (4.8-10.8)
[2021-01-24 09:11] LABS: Reticulocyte % < 0.5 % (0.5-2.0); Reticulocytes # < 0.02 10^6/uL (0.02-0.10)
--- NOTE | 2021-01-24 09:49 | Billing Data ---
Date of Service January 24, 2021 Coding Level of Care Code 89859 Subseq Hosp Care Lvl 3
--- NOTE | 2021-01-24 14:53 | Hospitalist Progress Note ---
Date of Service January 24, 2021 Assessment & Plan (1) Sepsis: Plan: Patient is hypercholesterolemia, hypothyroidism, history of thrombophlebitis right tibial vein, angiomyolipoma of right kidney, recent diagnose of CLL, iron deficiency anemia, history of left breast cancer was admitted with urinary symptoms and febrile neutropenia. Septic shock - resolved Neutropenic fever Pancytopenia; further worsening Klebsiella pneumoniae bacteremia Lactic acidosis - resolved Currently patient remains under critical care. Off pressors today. Continues to have persistent diarrhea. C. difficile is negative. Started on HH diet. Blood cultures and urine cultures are pending. Continue /cefepime for now. Repreat blood ordered today. Appreciate hematology input. Plan to start daily neupagen until neutrophils recover and continuing acalabrutinib. Acute kidney injury - resolved Avoid nephrotoxic agents. Monitor daily BMP. Creatinine today at 1.03. Hyponatremic on admission Na today at 133 in the setting of diarrhea. Monitor daily BMP. Acute hypoxic respiratory failure Remains on 2 L of nasal cannula. Does not use any oxygen at home. Concern for possible transfusion associated lung injury. Anemia Patient has received 3 units of PRBC during this admission. Getting another PRBC unit today. hgb today at 7.5 Monitor daily cbc CLL, on acalabrutinib, which is on hold. Follow up with heme/onc. Pt follows w/ Dr. Mcelroy in [place] - who was notified by Dr. Huang. Hypothyroidism: Continue Synthroid. Hyperlipidemia: Continue statin. Gout: Continue allopurinol. Elevated LFTs: Possibly from the ongoing illness. Will follow the repeat labs. (2) Gram-negative bacteremia: (3) Neutropenic fever: Admission and Anticipated Discharge Date Admission Date: January 21, 2021 Subjective Reports she is feeling a bit better today. States her weakness is improved. Denies any chest pain, shortness of breath, abdominal pain, nausea or vomiting. Continues to have persistent diarrhea. Physical Exam Physical Exam: General: A&Ox3. ill appreaing female HENT: NCAT, MMM, EOMI Eyes: PERRLA Neck: Supple, normal range of motion, right central line in place CVS: normal rate and rhythm Resp: b/l corase breath sounds Abdomen: Soft, ND/NT Extremities: No c/c/e Neuro: face symmetric, strength grossly equal, no focal deficit Skin: warm and dry, no rashes/lesions/errythema MSK: normal ROM, no joint swelling/erythema Results & Data Results & Data ([facility]) Vital Signs (Past 12 Hours) Vital Signs Temp Pulse Resp BP Pulse Ox 01/24/21 12:52 36.9 C 87 26 H 120/54 L 99 01/24/21 12:22 36.8 C 86 26 H 119/51 L 95 01/24/21 12:07 36.8 C 85 26 H 127/54 L 96 01/24/21 11:43 36.8 C 91 H 23 119/58 L 96 01/24/21 10:56 36.9 C 88 23 121/53 L 01/24/21 09:56 36.9 C 87 24 124/53 L 92 01/24/21 09:26 36.9 C 89 25 H 123/52 L 95 01/24/21 09:11 36.9 C 87 20 122/52 L 96 01/24/21 08:57 36.9 C 88 20 125/53 L 96 01/24/21 08:54 36.9 C 87 27 H 128/55 L 96 01/24/21 08:00 89 01/24/21 05:09 36.3 C L 83 27 H 109/61 100 01/24/21 04:09 36.2 C L 85 27 H 107/63 98 01/24/21 03:09 36.1 C L 82 25 H 112/61 98
[2021-01-24 17:03] LABS: Hematocrit (blood only) 26.9 % (37-47); Hemoglobin 9.2 g/dL (12.0-16.0); Mean Corpuscular Hemoglobin 28.1 pg (25-34); Mean Corpuscular Hgb Conc 34.2 g/dL (32-36); Mean Corpuscular Volume 82.3 fL (80-100); RDW Coefficient of Variation 19.5 % (11.5-14.5); RDW Standard Deviation 58.5 fL (36.4-46.3); Red Blood Count 3.27 M/uL (4.2-5.4); White Blood Count 0.17 K/uL (4.8-10.8)
[2021-01-24 17:04] LABS: Platelet Count 25 K/uL (130-400)
[2021-01-24 17:05] LABS: Platelet Estimate SIGNIFIC DECREASED (Normal)
[2021-01-24] MEDS: SIMVASTATIN 20 MG TAB PO SCH (19:41)
[2021-01-24] MEDS: GABAPENTIN 300 MG CAP PO SCH (19:41)
[2021-01-25] MEDS: CEFEPIME 2,000 MG in SYRINGE 0 ML IV SCH ×2 (03:37→17:15)
[2021-01-25] MEDS: LEVOTHYROXINE SODIUM 125 MCG TABLET PO SCH (05:52)
[2021-01-25] MEDS: GABAPENTIN 300 MG CAP PO SCH ×2 (08:28→20:07)
[2021-01-25] MEDS: ACYCLOVIR 400 MG TAB PO SCH ×2 (08:28→20:07)
[2021-01-25] MEDS: FAMOTIDINE 20 MG TAB PO SCH (08:28)
[2021-01-25] MEDS: allopurinoL 300 MG TAB PO SCH (08:28)
[2021-01-25] MEDS: THIAMINE HCL 200 MG in SODIUM CHLORIDE 0.9% 50 ML IV SCH (08:39)
[2021-01-25 10:12] LABS: BUN Creatinine Ratio 34.4 (10-20); Creatinine Clr Calc Pharmacy 55.7 ml/min; Est GFR (Non-African American) 58.7 ml/min; Potassium 3.3 mmol/L (3.5-5.1)
[2021-01-25 10:16] LABS: Hematocrit (blood only) 25.4 % (37-47); Hemoglobin 8.7 g/dL (12.0-16.0); Mean Corpuscular Hgb Conc 34.3 g/dL (32-36); Mean Corpuscular Volume 81.7 fL (80-100); Platelet Count 22 K/uL (130-400); RDW Standard Deviation 58.9 fL (36.4-46.3); Red Blood Count 3.11 M/uL (4.2-5.4)
[2021-01-25] MEDS ORDERED: POTASSIUM CHLORIDE CRTAB 20 MEQ TABCR PO STA (12:29)
[2021-01-25] MEDS ORDERED: FILGRASTIM 300 MCG/ML VIAL SQ ONE (13:55)
--- NOTE | 2021-01-25 14:00 | Hospitalist Progress Note ---
Date of Service January 25, 2021 Assessment & Plan (1) Septic shock due to Klebsiella pneumoniae: Plan: Urinary tract infection and Klebsiella bacteremia present on work-up. Patient required short stay in ICU on pressor support and is now off this. Continues on broad-spectrum cefepime and is doing well with stable vital signs. Continue therapies below. (2) Neutropenic fever: Plan: Resolved on broad-spectrum antibiotics. Was likely secondary to UTI and bacteremia. Possible pneumonia was present. Continue acyclovir for prophylaxis of infection in setting of immunosuppression. (3) Pancytopenia due to chemotherapy: Plan: Ongoing discussion with patient's [facility] oncologist, Dr. Mcelroy. He recommends daily dose of filgrastim 300 mcg until neutrophil count is greater than 1. Continue CBC with differential daily. Currently no reason for platelet transfusion with current platelet level of 22K. There is no active bleeding or fever at this time. Continue neutropenic precautions. (4) Gram-negative bacteremia: Plan: Covered with broad-spectrum cefepime. De-escalation of antibiotics pending infectious disease consultation and recommendations. (5) UTI (urinary tract infection): Plan: Covered with spectrum cefepime. De-escalation pending infectious disease consultation. (6) Hyponatremia: Plan: Recent septic shock on pressor support and diarrhea, just transferred out of the ICU yesterday. P.o. intake starting to improve. Avoid diuretic therapy or other dehydrating agents at this time. Continue to encourage oral hydration and food intake. Monitor BMP daily. (7) Hypoxia: Plan: This is resolved and she is oxygenating well on room air. Etiology was unclear with differential including but not limited to possible recent transfusion reaction with pulmonary edema pattern on chest x-ray versus pneumonia. She does not have respiratory symptoms at this time and with overall clinical improvement we will continue current medical therapy. Recommend outpatient repeat chest imaging in 4 weeks to ensure complete resolution of abnormalities. (8) CLL (chronic lymphocytic leukemia): Plan: Currently on acalabrutinib, which has been held and will continue to be held after discharge. (9) History of breast cancer: (10) Hypothyroidism: Plan: Continue home dose of levothyroxine. (11) DVT prophylaxis: Plan: SCDs-ambulation as able-DVT chemoprophylaxis contraindicated in setting of thrombocytopenia Full code Disposition-to home when medically stable. Lalita Marquez DO [facility] hospitalist Admission and Anticipated Discharge Date Admission Date: January 21, 2021 Subjective 75-year-old female with a history of breast cancer and active CLL on immunotherapy admitted for neutropenic fever. I discussed the case with her oncologist Dr. Tigist Mcelroy from [facility]. We went through her labs including current CBC. He recommended additional filgrastim 300 mcg injection today which was given Fibrinogen was checked and over 600. This was discussed with the patient who reported she was feeling somewhat better but very weak. She cannot sit up in bed independently at this point. She is tolerating p.o., and afebrile. She denies any other significant symptoms at this time. She denies any chest pain or shortness of breath. Review of Systems Review of Systems: At least ten systems were reviewed and negative except as indicated in HPI above. Physical Exam Physical Exam: CONSTITUTIONAL: WNWD, vitals as above, generally well- appearing EYES: normal conjunctivae, no scleral icterus ENT: external ear and nose normal, MMM NECK: trachea midline RESPIRATORY: clear to auscultation bilaterally, no crackles, rales or wheezes, normal respiratory effort CARDIOVASCULAR: regular rate and rhythm, S1 and 2 heard without murmurs, gallops or rubs, no JVD, no peripheral edema GASTROINTESTINAL: soft, nontender, ND, no guarding MUSCULOSKELETAL: strength 5/5 throughout, head is normocephalic and atraumatic SKIN: warm and dry NEUROLOGIC: CN 2-12 grossly intact, normal cognition, normal speech, no tremor PSYCHIATRIC: alert cooperative and oriented to person, place and time. Results & Data Results & Data ([facility]) Vital Signs (Past 12 Hours) Vital Signs Temp Pulse Resp BP Pulse Ox 01/25/21 07:48 36.7 C 90 18 100/62 93 01/25/21 04:00 36.4 C L 89 18 103/63 97
[2021-01-25 14:42] LABS: Fibrinogen 674 mg/dl (184-400)
[2021-01-25] MEDS: SIMVASTATIN 20 MG TAB PO SCH (20:07)
[2021-01-26] MEDS: CEFEPIME 2,000 MG in SYRINGE 0 ML IV SCH ×3 (04:30→20:12)
[2021-01-26] MEDS: LEVOTHYROXINE SODIUM 125 MCG TABLET PO SCH (05:51)
[2021-01-26 06:18] LABS: Fibrinogen 618 mg/dl (184-400)
[2021-01-26 06:36] LABS: Hematocrit (blood only) 26.1 % (37-47); Hemoglobin 8.8 g/dL (12.0-16.0); Mean Corpuscular Hemoglobin 28.1 pg (25-34); Mean Corpuscular Hgb Conc 33.7 g/dL (32-36); Mean Corpuscular Volume 83.4 fL (80-100); Mean Platelet Volume 10.5 fL (7.4-10.4); Platelet Count 26 K/uL (130-400); RDW Coefficient of Variation 20.6 % (11.5-14.5); RDW Standard Deviation 62.7 fL (36.4-46.3); Red Blood Count 3.13 M/uL (4.2-5.4)
[2021-01-26 06:40] LABS: BUN Creatinine Ratio 42.7 (10-20); Est GFR (African American) 84.8 ml/min; Est GFR (Non-African American) 73.1 ml/min; Magnesium 2.8 mg/dl (1.8-2.4); Potassium 3.9 mmol/L (3.5-5.1)
[2021-01-26] MEDS: ACYCLOVIR 400 MG TAB PO SCH ×2 (08:45→20:12)
[2021-01-26] MEDS: allopurinoL 300 MG TAB PO SCH (08:45)
[2021-01-26] MEDS: FAMOTIDINE 20 MG TAB PO SCH (08:45)
[2021-01-26] MEDS: THIAMINE HCL 200 MG in SODIUM CHLORIDE 0.9% 50 ML IV SCH (08:45)
[2021-01-26] MEDS: GABAPENTIN 300 MG CAP PO SCH ×2 (08:45→20:12)
[2021-01-26] MEDS ORDERED: FILGRASTIM 300 MCG/ML VIAL SQ ONE (09:30)
--- NOTE | 2021-01-26 16:31 | Hospitalist Progress Note ---
Date of Service January 26, 2021 Assessment & Plan (1) Septic shock due to Klebsiella pneumoniae: Plan: Urinary tract infection and Klebsiella bacteremia present on work-up. Patient required short stay in ICU on pressor support and is now off this. Continues on broad-spectrum cefepime and is doing well with stable vital signs. Continue therapies below. (2) Neutropenic fever: Plan: Resolved on broad-spectrum antibiotics. Was likely secondary to UTI and bacteremia. Possible pneumonia was present. Continue acyclovir for prophylaxis of infection in setting of immunosuppression. (3) Pancytopenia due to chemotherapy: Plan: Ongoing discussion [place] [facility] [place], Dr. Mcelroy. He recommends daily dose of filgrastim 300 mcg until neutrophil count is greater than 1. Given dose with WBC 0.3 today. Continue CBC with differential daily. Currently no reason for platelet transfusion with current platelet level of 26K. There is no active bleeding or fever at this time. Continue neutropenic precautions. (4) Gram-negative bacteremia: Plan: Covered with broad-spectrum cefepime. De-escalation of antibiotics pending infectious disease consultation and recommendations. (5) UTI (urinary tract infection): Plan: Covered with spectrum cefepime. De-escalation pending infectious disease consultation. (6) Hyponatremia: Plan: Recent septic shock on pressor support and diarrhea, initially admitted to ICU. P.o. improved and diarrhea has resolved. Avoid diuretic therapy or other dehydrating agents at this time. Continue to encourage oral hydration and food intake. Monitor BMP daily. (7) Hypoxia: Plan: This is resolved and she is oxygenating well on room air. Etiology was unclear with differential including but not limited to possible recent transfusion reaction with pulmonary edema pattern on chest x-ray versus pneumonia. She does not have respiratory symptoms at this time and with overall clinical improvement we will continue current medical therapy. Recommend outpatient repeat chest imaging in 4 weeks to ensure complete resolution of abnormalities. (8) CLL (chronic lymphocytic leukemia): Plan: Currently on acalabrutinib, which has been held and will continue to be held after discharge. (9) History of breast cancer: (10) Hypothyroidism: Plan: Continue home dose of levothyroxine. (11) DVT prophylaxis: Plan: SCDs-ambulation as able-DVT chemoprophylaxis contraindicated in setting of thrombocytopenia Full code Disposition-to home when medically stable. DO Molly Victoria hospitalist Admission and Anticipated Discharge Date Admission Date: January 21, 2021 Subjective 75-year-old female with a history of breast cancer and active CLL on immunotherapy admitted for neutropenic fever. Labs reviewed with , filgrastim recommended with WBC 0.3 Pt is fatigued and takes a long time to answer questions today. Is not confused but appears very tired. She was up and walking to the bathroom today. She is tolerating PO She has been afebrile and denies any pain. Review of Systems Review of Systems: At least ten systems were reviewed and negative except as indicated in HPI above. Physical Exam Physical Exam: CONSTITUTIONAL: WNWD, vitals as above, generally NAD, appears fatigues, weak and slow to respond to questions. EYES: normal conjunctivae, no scleral icterus ENT: external ear and nose normal, MMM NECK: trachea midline RESPIRATORY: clear to auscultation bilaterally, no crackles, rales or wheezes, normal respiratory effort CARDIOVASCULAR: regular rate and rhythm, S1 and 2 heard without murmurs, gallops or rubs, no JVD, no peripheral edema GASTROINTESTINAL: soft, nontender, ND, no guarding MUSCULOSKELETAL: strength 5/5 throughout, head is normocephalic and atraumatic SKIN: warm and dry NEUROLOGIC: CN 2-12 grossly intact, normal cognition, normal speech, no tremor PSYCHIATRIC: alert cooperative and oriented to person, place and time. Results & Data Results & Data ([facility]) Vital Signs (Past 12 Hours) Vital Signs Temp Pulse Pulse Resp BP BP Pulse Ox 01/26/21 15:54 36.3 C L 82 16 105/64 96 01/26/21 15:12 83 01/26/21 11:54 36.5 C 85 19 100/64 96 01/26/21 07:24 83 01/26/21 07:07 36.6 C 88 17 107/66 95 Laboratory Results Short CBC 01/26/21 Range/Units 05:40 WBC 0.30 L* (4.8-10.8) K/uL Hgb 8.8 L (12.0-16.0) g/dL Hct 26.1 L (37-47) % Plt Count 26 L* (130-400) K/uL BMP 01/26/21 05:40 Sodium 133 L Potassium 3.9 D Chloride 110 H Carbon Dioxide 20 L BUN 34 H Creatinine 0.80 Glucose 98 Calcium 7.0 L Medications Administered Current Inpatient Medications Acetaminophen (Acetaminophen 325 Mg Tab) 650 mg PO Q4H PRN PRN Reason: Pain or Fever Stop: 02/21/21 01:02 Acyclovir (Acyclovir 400 Mg Tab) 400 mg PO BID [facility] Stop: 02/21/21 08:59 Last Admin: 01/26/21 08:45 Dose: 400 mg Documented by: Allopurinol (Allopurinol 300 Mg Tab) 300 mg PO DAILY [facility] Stop: 02/21/21 08:59 Last Admin: 01/26/21 08:45 Dose: 300 mg Documented by: Famotidine (Famotidine 20 Mg Tab) 20 mg PO DAILY [facility] Stop: 02/24/21 08:59 Last Admin: 01/26/21 08:45 Dose: 20 mg Documented by: Gabapentin (Gabapentin 300 Mg Cap) 300 mg PO BID [facility] Stop: 02/21/21 01:02 Last Admin: 01/26/21 08:45 Dose: 300 mg Documented by: Cefepime HCl 2,000 mg/ Syringe 20 mls @ 5 mls/min IV Q8H [facility]; Protocol Stop: 02/04/21 20:03 Last Admin: 01/26/21 11:47 Dose: 5 mls/min Documented by: Levothyroxine Sodium (Levothyroxine Sodium 125 Mcg Tablet) 125 mcg PO DAILYBB [facility] Stop: 02/21/21 06:29 Last Admin: 01/26/21 05:51 Dose: 125 mcg Documented by: Miscellaneous Information (') 1 ea N/A UD PRN PRN Reason: Consult Stop: 02/21/21 01:04 Nitroglycerin (Nitroglycerin Sl 0.4 Mg/Tab Tab) 0.4 mg SL UD PRN PRN Reason: Chest Pain Stop: 02/21/21 01:02 Ondansetron HCl (Ondansetron Inj 2 Mg/Ml 2 Ml Vial) 4 mg IV Q6H PRN PRN Reason: Nausea Stop: 02/21/21 01:02 Oxycodone HCl (Oxycodone Hcl Ir 5 Mg Tab (Immediate Release)) 5 mg PO Q4 PRN PRN Reason: Pain Stop: 02/05/21 01:02 Simvastatin (Simvastatin 20 Mg Tab) 20 mg PO [facility] Stop: 02/21/21 20:59 Last Admin: 01/25/21 20:07 Dose: 20 mg Documented by:
[2021-01-26] MEDS: SIMVASTATIN 20 MG TAB PO SCH (20:12)
[2021-01-27] MEDS: CEFEPIME 2,000 MG in SYRINGE 0 ML IV SCH ×3 (03:39→20:12)
[2021-01-27] MEDS: LEVOTHYROXINE SODIUM 125 MCG TABLET PO SCH (05:42)
[2021-01-27 07:23] LABS: Hematocrit (blood only) 26.7 % (37-47); Hemoglobin 8.9 g/dL (12.0-16.0); Mean Corpuscular Hemoglobin 27.9 pg (25-34); Mean Corpuscular Hgb Conc 33.3 g/dL (32-36); Mean Corpuscular Volume 83.7 fL (80-100); Mean Platelet Volume 10.8 fL (7.4-10.4); Platelet Count 37 K/uL (130-400); RDW Coefficient of Variation 20.4 % (11.5-14.5); RDW Standard Deviation 62.7 fL (36.4-46.3); Red Blood Count 3.19 M/uL (4.2-5.4)
[2021-01-27 07:41] LABS: Fibrinogen 529 mg/dl (184-400); INR 1.1 (0.9-1.1); Prothrombin Time 11.1 Seconds (9.0-12.0)
[2021-01-27 08:00] LABS: BUN Creatinine Ratio 40.1 (10-20); Calcium 7.4 mg/dl (8.5-10.1); Creatinine Clr Calc Pharmacy 66.8 ml/min; Est GFR (African American) 84.8 ml/min; Est GFR (Non-African American) 73.1 ml/min; Magnesium 2.4 mg/dl (1.8-2.4); Potassium 4.1 mmol/L (3.5-5.1)
[2021-01-27 08:01] LABS: Phosphorus 1.6 mg/dl (2.5-4.9)
[2021-01-27] MEDS: GABAPENTIN 300 MG CAP PO SCH ×2 (08:28→20:12)
[2021-01-27] MEDS: FAMOTIDINE 20 MG TAB PO SCH (08:28)
[2021-01-27] MEDS: allopurinoL 300 MG TAB PO SCH (08:28)
[2021-01-27] MEDS: ACYCLOVIR 400 MG TAB PO SCH ×2 (08:28→20:12)
[2021-01-27] MEDS ORDERED: SODIUM PHOSPHATE 3 MMOL/1 ML 5 ML VIAL IV ONE (09:34)
[2021-01-27] MEDS ORDERED: FILGRASTIM 300 MCG/ML VIAL SQ ONE (09:47)
[2021-01-27] MEDS ORDERED: SODIUM PHOSPHATE 30 MMOL in SODIUM CHLORIDE 0.9% 500 ML IV ONE (10:30)
[2021-01-27] MEDS ORDERED: POLYETHYLENE (MIRALAX) 17 GM PACK PO ONE (11:35)
[2021-01-27] MEDS ORDERED: POLYETHYLENE (MIRALAX) 17 GM PACK PO PRN (11:35)
--- NOTE | 2021-01-27 11:47 | Hospitalist Progress Note ---
Date of Service January 27, 2021 Assessment & Plan (1) Septic shock due to Klebsiella pneumoniae: Plan: Urinary tract infection and Klebsiella bacteremia present on work-up. Patient required short stay in ICU on pressor support and is now off this. Continues on broad-spectrum cefepime and is doing well with stable vital signs. Continue therapies below. ID consult requested for am. (2) Neutropenic fever: Plan: Resolved on broad-spectrum antibiotics. Remains afebrile. Was likely secondary to UTI and bacteremia. Possible pneumonia was also present but currently without respiratory symptoms and oxygenating well on room air. Continue acyclovir for prophylaxis of infection in setting of immunosuppression. (3) Pancytopenia due to chemotherapy: Plan: Ongoing discussion with [place] [facility] [place], [place]. Mcelroy. He recommends daily dose of filgrastim 300 mcg until neutrophil count is greater than 1. Given dose with WBC 0.4 today. Continue CBC with differential daily. Currently no reason for platelet transfusion with current platelet level of 37K. There is no active bleeding or fever at this time. Continue neutropenic precautions. (4) Gram-negative bacteremia: Plan: Covered with broad-spectrum cefepime. De-escalation of antibiotics pending infectious disease consultation and recommendations. (5) UTI (urinary tract infection): Plan: Covered with spectrum cefepime. De-escalation pending infectious disease consultation. Some urinary retention this morning may be related to constipation. MiraLAX given. (6) Acute urinary retention: Plan: May be related to infection versus constipation. Patient had Coffey removed just yesterday out of concern for avoiding hospital-acquired infection. She is cont inued on broad-spectrum cefepime. Feel repeat UA would be of low yield. Giving dose of MiraLAX now to help with BMs. Continue to move around as tolerated. Bladder scan scheduled every 6. If repeat straight cath as needed, would prefer replacement of Coffey catheter. (7) Hyponatremia: Plan: Recent septic shock on pressor support and diarrhea, initially admitted to ICU. P.o. improved and diarrhea has resolved. Avoid diuretic therapy or other dehydrating agents at this time. Continue to encourage oral hydration and food intake. Monitor BMP daily. (8) Hypoxia: Plan: This is resolved and she is oxygenating well on room air. Etiology was unclear with differential including but not limited to possible recent transfusion reaction with pulmonary edema pattern on chest x-ray versus pneumonia. She does not have respiratory symptoms at this time and with overall clinical improvement we will continue current medical therapy. Recommend outpatient repeat chest imaging in 4 weeks to ensure complete resolution of abnormalities. (9) CLL (chronic lymphocytic leukemia): Plan: Currently on acalabrutinib, which has been held and will continue to be held after discharge. (10) History of breast cancer: (11) Hypothyroidism: Plan: Continue home dose of levothyroxine. (12) DVT prophylaxis: Plan: SCDs-ambulation as able-DVT chemoprophylaxis contraindicated in setting of thrombocytopenia Full code Disposition-removed telemetry, to home once physically able to move independently and once infectious disease recommendations have been given. Lalita Marquez DO [facility] Hospitalist Admission and Anticipated Discharge Date Admission Date: January 21, 2021 Subjective 75-year-old female with a history of breast cancer and active CLL on immunotherapy admitted for neutropenic fever. Labs reviewed with Dr. Mcelroy, filgrastim recommended with WBC 0.4 today, reviewed with patient Pt is fatigued and takes a long time to answer questions again today. Is not confused but still appears very tired. She reports not getting much sleep She continues to be awoken for something--we discussed taking her off telemetry she has not haad a BM in several days and had some urinary retention this am requiring straight cath for 500cc. Feels numbness in area where she has residual shingles rash Review of Systems Review of Systems: All systems were reviewed and negative except as indicated in HPI above. Physical Exam Physical Exam: CONSTITUTIONAL: WNWD, vitals as above, generally NAD, appears fatigues, weak and slow to respond to questions. EYES: normal conjunctivae, no scleral icterus ENT: external ear and nose normal, MMM NECK: trachea midline RESPIRATORY: clear to auscultation bilaterally, no crackles, rales or wheezes, normal respiratory effort CARDIOVASCULAR: regular rate and rhythm, S1 and 2 heard without murmurs, gallops or rubs, no JVD, no peripheral edema GASTROINTESTINAL: soft, nontender, ND, no guarding MUSCULOSKELETAL: strength 5/5 throughout, head is normocephalic and atraumatic SKIN: warm and dry NEUROLOGIC: CN 2-12 grossly intact, normal cognition, normal speech, no tremor PSYCHIATRIC: alert cooperative and oriented to person, place and time. Results & Data Results & Data ([facility]) Vital Signs (Past 12 Hours) Vital Signs Temp Pulse Pulse Resp BP BP Pulse Ox 01/27/21 08:57 78 01/27/21 06:53 36.4 C L 82 18 109/65 98 01/27/21 03:48 36.5 C 86 16 110/66 97 Laboratory Results Short CBC 01/27/21 Range/Units 07:06 WBC 0.40 L* (4.8-10.8) K/uL Hgb 8.9 L (12.0-16.0) g/dL Hct 26.7 L (37-47) % Plt Count 37 L (130-400) K/uL BMP 01/27/21 07:06 Sodium 137 Potassium 4.1 Chloride 110 H Carbon Dioxide 25 BUN 32 H Creatinine 0.80 Glucose 92 Calcium 7.4 L Medications Administered Current Inpatient Medications Acetaminophen (Acetaminophen 325 Mg Tab) 650 mg PO Q4H PRN PRN Reason: Pain or Fever Stop: 02/21/21 01:02 Acyclovir (Acyclovir 400 Mg Tab) 400 mg PO BID [facility] Stop: 02/21/21 08:59 Last Admin: 01/27/21 08:28 Dose: 400 mg Documented by: Allopurinol (Allopurinol 300 Mg Tab) 300 mg PO DAILY [facility] Stop: 02/21/21 08:59 Last Admin: 01/27/21 08:28 Dose: 300 mg Documented by: Famotidine (Famotidine 20 Mg Tab) 20 mg PO DAILY [facility] Stop: 02/24/21 08:59 Last Admin: 01/27/21 08:28 Dose: 20 mg Documented by: Gabapentin (Gabapentin 300 Mg Cap) 300 mg PO BID [facility] Stop: 02/21/21 01:02 Last Admin: 01/27/21 08:28 Dose: 300 mg Documented by: Cefepime HCl 2,000 mg/ Syringe 20 mls @ 5 mls/min IV Q8H [facility]; Protocol Stop: 02/04/21 20:03 Last Admin: 01/27/21 03:39 Dose: 5 mls/min Documented by: Sodium Phosphate 30 mmol/ (Sodium Chloride) 510 mls @ 88 mls/hr IV ONE ONE Stop: 01/27/21 16:17 Levothyroxine Sodium (Levothyroxine Sodium 125 Mcg Tablet) 125 mcg PO DAILYBB [facility] Stop: 02/21/21 06:29 Last Admin: 01/27/21 05:42 Dose: 125 mcg Documented by: Miscellaneous Information (') 1 ea N/A UD PRN PRN Reason: Consult Stop: 02/21/21 01:04 Nitroglycerin (Nitroglycerin Sl 0.4 Mg/Tab Tab) 0.4 mg SL UD PRN PRN Reason: Chest Pain Stop: 02/21/21 01:02 Ondansetron HCl (Ondansetron Inj 2 Mg/Ml 2 Ml Vial) 4 mg IV Q6H PRN PRN Reason: Nausea Stop: 02/21/21 01:02 Oxycodone HCl (Oxycodone Hcl Ir 5 Mg Tab (Immediate Release)) 5 mg PO Q4 PRN PRN Reason: Pain Stop: 02/05/21 01:02 Polyethylene Glycol (Polyethylene (Miralax) 17 Gm Pack) 17 gm PO DAILY [facility] Stop: 01/27/21 11:36 Polyethylene Glycol (Polyethylene (Miralax) 17 Gm Pack) 17 gm PO DAILY PRN PRN Reason: constipation Stop: 02/27/21 08:59 Simvastatin (Simvastatin 20 Mg Tab) 20 mg PO HS [facility] Stop: 02/21/21 20:59 Last Admin: 01/26/21 20:12 Dose: 20 mg Documented by:
[2021-01-27] MEDS: SIMVASTATIN 20 MG TAB PO SCH (20:12)
[2021-01-28] MEDS: CEFEPIME 2,000 MG in SYRINGE 0 ML IV SCH ×3 (03:06→20:03)
[2021-01-28] MEDS: LEVOTHYROXINE SODIUM 125 MCG TABLET PO SCH (05:57)
[2021-01-28 07:50] LABS: Hematocrit (blood only) 26.7 % (37-47); Hemoglobin 8.8 g/dL (12.0-16.0); Mean Corpuscular Hemoglobin 28.4 pg (25-34); Mean Corpuscular Volume 86.1 fL (80-100); Mean Platelet Volume 10.9 fL (7.4-10.4); Platelet Count 54 K/uL (130-400); RDW Coefficient of Variation 19.9 % (11.5-14.5); RDW Standard Deviation 62.9 fL (36.4-46.3); White Blood Count 0.65 K/uL (4.8-10.8)
[2021-01-28 08:11] LABS: BUN Creatinine Ratio 41.3 (10-20); Calcium 7.4 mg/dl (8.5-10.1); Creatinine Clr Calc Pharmacy 84.8 ml/min; Est GFR (African American) 103.1 ml/min; Potassium 3.9 mmol/L (3.5-5.1)
[2021-01-28 08:13] LABS: Phosphorus 2.3 mg/dl (2.5-4.9)
[2021-01-28] MEDS: ACYCLOVIR 400 MG TAB PO SCH ×2 (09:21→19:59)
[2021-01-28] MEDS: GABAPENTIN 300 MG CAP PO SCH ×2 (09:21→20:00)
[2021-01-28] MEDS: FAMOTIDINE 20 MG TAB PO SCH (09:22)
[2021-01-28] MEDS: allopurinoL 300 MG TAB PO SCH (09:22)
[2021-01-28 09:37] LABS: Anisocytosis Present; Dohle Bodies 1+; Lymphocytes # (auto) 0.26 K/uL (1.2-3.4); Monocytes # (auto) 0.11 K/uL (0.11-0.59); Monocytes % (auto) 16.9 %; Neutrophils # (auto) 0.28 K/uL (1.4-6.5); Neutrophils % (auto) 43.1 %; Toxic Granulation 1+
--- NOTE | 2021-01-28 15:49 | Hospitalist Progress Note ---
Date of Service January 28, 2021 Assessment & Plan (1) Septic shock due to Klebsiella pneumoniae: Plan: Urinary tract infection and Klebsiella bacteremia. Patient required short stay in ICU on pressor support and is now off this. Remains on cefepime. Awaiting infectious disease input. Patient is afebrile. Leukopenia is improving (2) Neutropenic fever: Plan: Resolved on broad-spectrum antibiotics. Remains afebrile. Was likely secondary to UTI and bacteremia. Possible pneumonia was also present but currently without respiratory symptoms and oxygenating well on room air. Continue acyclovir for prophylaxis of infection in setting of immunosuppression. (3) Pancytopenia due to chemotherapy: Plan: Ongoing discussion with patient's [facility] [place] oncologist, Dr. Mcelroy. He recommends daily dose of filgrastim 300 mcg until neutrophil count is greater than 1. Given dose with WBC 0.65 today. ANC at .28 today. Continue CBC with differential daily. Currently no reason for platelet transfusion with current platelet level of 54K. Continue neutropenic precautions. (4) Gram-negative bacteremia: Plan: Covered with broad-spectrum cefepime. De-escalation of antibiotics pending infectious disease consultation and recommendations. (5) UTI (urinary tract infection): Plan: Covered with spectrum cefepime. De-escalation pending infectious disease consultation. Some urinary retention this morning may be related to constipation. MiraLAX given. (6) Acute urinary retention: Plan: Coffey catheter has been removed. Patient is voiding on her own. (7) Hyponatremia: Plan: resolved (8) Hypoxia: Plan: Resolved, currently on room air and doing okay. No respiratory symptoms. Recommend outpatient repeat chest imaging in 4 weeks to ensure complete resolution of abnormalities. (9) CLL (chronic lymphocytic leukemia): Plan: Currently on acalabrutinib, which has been held and will continue to be held after discharge. (10) History of breast cancer: (11) Hypothyroidism: Plan: Continue home dose of levothyroxine. (12) DVT prophylaxis: Plan: SCDs-ambulation as able-DVT chemoprophylaxis contraindicated in setting of thrombocytopenia Full code Disposition-removed telemetry, to home once physically able to move independently and once infectious disease recommendations have been given. Admission and Anticipated Discharge Date Admission Date: January 21, 2021 Subjective Doing okay this morning. Reports appetite is improving is resolved. No nausea or vomiting. Denies any chest pain, shortness of breath, abdominal pain or dysuria. Rest of the review of system is negative. Review of Systems Review of Systems: All systems reviewed & are unremarkable except as noted in HPI & below Physical Exam Physical Exam: General: A&Ox3. ill appreaing female HENT: NCAT, MMM, EOMI Eyes: PERRLA Neck: Supple, normal range of motion, right central line in place CVS: normal rate and rhythm Resp: b/l corase breath sounds Abdomen: Soft, ND/NT Extremities: No c/c/e Neuro: face symmetric, strength grossly equal, no focal deficit Skin: warm and dry, no rashes/lesions/errythema MSK: normal ROM, no joint swelling/erythema Results & Data Results & Data ([facility]) Vital Signs (Past 12 Hours) Vital Signs Temp Pulse Resp BP Pulse Ox 01/28/21 15:40 36.7 C 84 16 114/64 100 01/28/21 08:04 36.6 C 80 16 120/68 97
[2021-01-28] MEDS: SIMVASTATIN 20 MG TAB PO SCH (20:00)
[2021-01-29] MEDS: LEVOTHYROXINE SODIUM 125 MCG TABLET PO SCH (05:25)
[2021-01-29] MEDS: FAMOTIDINE 20 MG TAB PO SCH (08:58)
[2021-01-29] MEDS: GABAPENTIN 300 MG CAP PO SCH ×2 (08:58→20:53)
[2021-01-29] MEDS: ACYCLOVIR 400 MG TAB PO SCH ×2 (08:59→20:52)
[2021-01-29] MEDS: allopurinoL 300 MG TAB PO SCH (08:59)
[2021-01-29] MEDS: CIPROFLOXACIN 500 MG TAB PO SCH ×2 (10:40→20:53)
--- NOTE | 2021-01-29 14:35 | Hospitalist Progress Note ---
Date of Service January 29, 2021 Assessment & Plan (1) Septic shock due to Klebsiella pneumoniae: Plan: Urinary tract infection and Klebsiella bacteremia. Patient required short stay in ICU on pressor support and is now off this. Patient is afebrile. Leukopenia is improving. Hemodynamically doing fine. Appreciate infectious disease input. Cefepime has been discontinued. Started on ciprofloxacin 500 mg twice daily. Continue monitor daily CBC until ANC is improved. Discuss with hematology prior to discharge. (2) Neutropenic fever: Plan: Resolved on broad-spectrum antibiotics. Remains afebrile. Was likely secondary to UTI and bacteremia. Possible pneumonia was also present but currently without respiratory symptoms and oxygenating well on room air. Continue acyclovir for prophylaxis of infection in setting of immunosuppression. (3) Pancytopenia due to chemotherapy: Plan: Ongoing discussion with patient's [facility] oncologist, Dr. Mcelroy. He recommends daily dose of filgrastim 300 mcg until neutrophil count is greater than 1. Given dose with WBC 1.25 today. ANC is pending. Continue CBC with differential daily. Currently no reason for platelet transfusion with current platelet level of 69K. Continue neutropenic precautions. (4) Gram-negative bacteremia: Plan: Covered with broad-spectrum cefepime. De-escalation of antibiotics pending infectious disease consultation and recommendations. (5) UTI (urinary tract infection): Plan: Continue ciprofloxacin 500 mg twice daily. (6) Acute urinary retention: Plan: Coffey catheter has been removed. Patient is voiding on her own. (7) Hyponatremia: Plan: resolved (8) Hypoxia: Plan: Resolved, currently on room air and doing okay. No respiratory symptoms. Recommend outpatient repeat chest imaging in 4 weeks to ensure complete resolution of abnormalities. (9) CLL (chronic lymphocytic leukemia): Plan: Currently on acalabrutinib, which has been held and will continue to be held after discharge. (10) History of breast cancer: (11) Hypothyroidism: Plan: Continue home dose of levothyroxine. (12) DVT prophylaxis: Plan: SCDs-ambulation as able-DVT chemoprophylaxis contraindicated in setting of thrombocytopenia Full code Disposition-removed telemetry, to home once physically able to move independently Admission and Anticipated Discharge Date Admission Date: January 21, 2021 Subjective Patient is resting comfortably this morning. Denies any major complaints. Reports she ate half of her breakfast this morning. Review of system is negative. Review of Systems Review of Systems: All systems reviewed & are unremarkable except as noted in HPI & below Physical Exam Physical Exam: General: A&Ox3. ill appreaing female HENT: NCAT, MMM, EOMI Eyes: PERRLA Neck: Supple, normal range of motion, right central line in place CVS: normal rate and rhythm Resp: b/l corase breath sounds Abdomen: Soft, ND/NT Extremities: No c/c/e Neuro: face symmetric, strength grossly equal, no focal deficit Skin: warm and dry, no rashes/lesions/errythema MSK: normal ROM, no joint swelling/erythema Results & Data Results & Data ([facility]) Vital Signs (Past 12 Hours) Vital Signs Temp Pulse Resp BP Pulse Ox 01/29/21 07:36 36.4 C L 86 16 130/69 98
[2021-01-29 14:49] LABS: Hematocrit (blood only) 26.9 % (37-47); Hemoglobin 8.9 g/dL (12.0-16.0); Mean Corpuscular Hemoglobin 27.8 pg (25-34); Mean Corpuscular Volume 84.1 fL (80-100); RDW Coefficient of Variation 19.3 % (11.5-14.5); RDW Standard Deviation 59.3 fL (36.4-46.3); White Blood Count 1.25 K/uL (4.8-10.8)
[2021-01-29 14:51] LABS: Mean Corpuscular Hgb Conc 33.1 g/dL (32-36); Mean Platelet Volume 10.1 fL (7.4-10.4); Platelet Count 69 K/uL (130-400)
[2021-01-29] MEDS ORDERED: FILGRASTIM 300 MCG/ML VIAL SQ ONE (15:15)
[2021-01-29 15:33] LABS: Anisocytosis Present; Dohle Bodies 1+; Immature Granulocytes # (auto) 0.01 K/uL (0.00-0.02); Immature Granulocytes % (auto) 0.8 %; Lymphocytes # (auto) 0.26 K/uL (1.2-3.4); Lymphocytes % (auto) 20.8 %; Monocytes # (auto) 0.35 K/uL (0.11-0.59); Neutrophils # (auto) 0.63 K/uL (1.4-6.5); Neutrophils % (auto) 50.4 %; Tear Drop Cells Occasional; Toxic Granulation 2+
[2021-01-29] MEDS: SIMVASTATIN 20 MG TAB PO SCH (20:53)
[2021-01-29] MEDS ORDERED: FUROSEMIDE 20 MG in SYRINGE 0 ML IV ONE (21:30)
[2021-01-29] MEDS: DOCUSATE SODIUM/SENNA 50/8.6MG TAB PO SCH (21:43)
[2021-01-30] MEDS: LEVOTHYROXINE SODIUM 125 MCG TABLET PO SCH (05:22)
--- NOTE | 2021-01-30 09:04 | Ultrasound Report ---
BILATERAL LOWER EXTREMITY VENOUS DOPPLER HISTORY: Acute pain and swelling of the lower legs leg swelling COMPARISON STUDY: None. FINDINGS: There is normal compressibility, flow, and augmentation within the bilateral lower extremit y deep venous systems. The left inguinal tissues there is a complex mixed echogenicity avascular hannah ection without color flow measuring 4.3 x 2.9 x 4.0 cm. This extends towards the skin surface. Subcut aneous edema of the left lower leg. IMPRESSION: 1. No sonographic evidence of venous thrombosis within the right or left lower extremity. 2. Mixed echogenicity collection within the left inguinal tissues measures up to 4.3 cm. With reporte d history of recent surgery this may reflect a hematoma. Correlate with clinical exam findings. ACT 112: Negative or not required by law. Electronically signed by: Elkin Benítez M.D. 01/30/2021 9:03 AM
[2021-01-30 09:29] LABS: Hematocrit (blood only) 28.8 % (37-47); Hemoglobin 9.5 g/dL (12.0-16.0); RDW Coefficient of Variation 19.1 % (11.5-14.5); RDW Standard Deviation 59.7 fL (36.4-46.3); Red Blood Count 3.39 M/uL (4.2-5.4); White Blood Count 2.13 K/uL (4.8-10.8)
[2021-01-30 09:48] LABS: Mean Platelet Volume 9.6 fL (7.4-10.4); Platelet Count 78 K/uL (130-400)
[2021-01-30] MEDS: CIPROFLOXACIN 500 MG TAB PO SCH (09:54)
[2021-01-30] MEDS: FAMOTIDINE 20 MG TAB PO SCH (09:54)
[2021-01-30] MEDS: GABAPENTIN 300 MG CAP PO SCH (09:54)
[2021-01-30] MEDS: DOCUSATE SODIUM/SENNA 50/8.6MG TAB PO SCH (09:54)
[2021-01-30] MEDS: allopurinoL 300 MG TAB PO SCH (09:55)
[2021-01-30] MEDS: ACYCLOVIR 400 MG TAB PO SCH (09:55)
[2021-01-30 09:57] LABS: BUN Creatinine Ratio 21.2 (10-20); Calcium 7.8 mg/dl (8.5-10.1); Creatinine Clr Calc Pharmacy 65.1 ml/min; Est GFR (African American) 83.5 ml/min; Est GFR (Non-African American) 72.1 ml/min; Potassium 3.4 mmol/L (3.5-5.1)
[2021-01-30] MEDS ORDERED: POTASSIUM CHLORIDE CRTAB 20 MEQ TABCR PO ONE (10:15)
[2021-01-30 10:26] LABS: ALC (manual) 0.31 K/uL (1.2-3.4); Basophils # (manual) 0.04 K/uL (0-0.2); Basophils % (manual) 1.7 %; Lymphocytes # (manual) 0.31 K/uL (1.2-3.4); Lymphocytes % (manual) 14.7 %; Monocytes # (manual) 0.15 K/uL (0.11-0.59); Monocytes % (manual) 6.9 %; Myelocytes # (manual) 0.02 K/uL (0-0); Myelocytes % (manual) 0.9 %; Neutrophils % (manual) 74.9 %; Promyelocytes # (manual) 0.02 K/uL (0-0); Promyelocytes % (manual) 0.9 %
[2021-01-30 10:41] LABS: Anisocytosis Present; Dohle Bodies 1+; Toxic Granulation 2+
--- NOTE | 2021-01-30 13:45 | Hospitalist Progress Note ---
Date of Service January 30, 2021 delayed entry date of service noted above Assessment & Plan (1) Septic shock due to Klebsiella pneumoniae: Plan: Urinary tract infection and Klebsiella bacteremia. Patient required short stay in ICU on pressor support and is now off this. Patient is afebrile. Leukopenia is improving. Hemodynamically doing fine. Appreciate infectious disease input. Cefepime has been discontinued. Started on ciprofloxacin 500 mg twice daily. Continue monitor daily CBC until ANC is improved. Discuss with hematology prior to discharge. 01/30 stable ANC >1,000 d/c on Cipro X 6 more days per ID PRN Lasix + Potassium PO for leg edema Venous Doppler Negative for DVT (2) Neutropenic fever: Plan: secondary to UTI and bacteremia. Continue acyclovir for prophylaxis of infection in setting of immunosuppression. (3) Pancytopenia due to chemotherapy: Plan: given Filgastrim ANC improved (4) Gram-negative bacteremia: Plan: Covered with broad-spectrum cefepime. Cipro PO x 6 more days (5) UTI (urinary tract infection): Plan: Continue ciprofloxacin 500 mg twice daily. (6) Acute urinary retention: Plan: Coffey catheter has been removed. Patient is voiding on her own. (7) Hyponatremia: Plan: resolved (8) Hypoxia: Plan: Resolved, currently on room air and doing okay. No respiratory symptoms. Recommend outpatient repeat chest imaging in 4 weeks to ensure complete resolution of abnormalities. (9) CLL (chronic lymphocytic leukemia): Plan: Currently on acalabrutinib, which has been held and will continue to be held after discharge. (10) History of breast cancer: (11) Hypothyroidism: Plan: Continue home dose of levothyroxine. (12) DVT prophylaxis: Plan: d/c home ff up with PCP Admission and Anticipated Discharge Date Admission Date: January 21, 2021 Subjective ff up for bacteremia, etc seen resting in bed, comfortable in good spirits states she feels much better overall no fever/chills, weakness, nausea no chest pain, dyspnea, palpitations, dizziness no abdominal pain, nausea/vomiting no other symptoms states she is ready and would like to be discharged soon Review of Systems Review of Systems: all noted and negative except for above Physical Exam Physical Exam: General- oriented x 3, not in distress, speaks in sentences with no effort or accessory muscle use Head- atraumatic Eyes- PERRL, EOMI, anicteric ENT- oropharynx clear Neck- supple, no JVD, no adenopathy, no thyromegaly; carotids +2/2, no bruits appreciated Lungs- clear to auscultation bilaterally, no rales/wheezes Heart- normal rate, regular rhythm; no murmur, no gallop, no rub appreciated Abdomen- normal bowel sounds, nondistended, soft, nontender, no masses or hepatosplenomegaly Extremities- no pretibial edema, no calf tenderness; peripheral pulses intact Neuro- alert, oriented x 3; CN 2-12 grossly intact; motor 5/5 bilaterally;sensation 100% on all extremities; no other gross focal neurologic deficits Skin- warm & dry Results & Data Results & Data ([facility]) Vital Signs (Past 12 Hours) Vital Signs Temp Pulse Resp BP Pulse Ox 01/30/21 07:21 36.6 C 87 18 115/68 97 all noted and reviewed including below
--- NOTE | 2021-02-11 18:07 | Discharge Summary ---
Date of Service February 11, 2021 Admission HPI Per Admitting Provider CHIEF COMPLAINT: Febrile neutropenia and urinary symptoms. HISTORY OF PRESENT ILLNESS: A 75-year-old female with past medical history significant for hypercholesterolemia, hypothyroidism, history of thrombophlebit is right tibial vein, angiomyolipoma of right kidney, recent diagnose of CLL, iron deficiency anemia, history of left breast cancer. The patient was recently started on acalabrutinib for CLL, but it was held because of low blood counts. Presents because of the last couple of days of urinary symptoms of burning pain while micturating. Started to have shaking chills over the last couple last couple of days and had temp spike in the ER. She was having T-max of 39.5, pulse in 130s, and her hemoglobin was 6.5, WBC was 0.13, platelets were 168. Sodium 130, total bilirubin 1.9. Urinalysis positive. SARS-CoV-2 PCR negative. In the ER, she was given cefepime. CT of abdomen and pelvis shows possible cystitis. The patient on exam was having chills and complains of burning micturition. Denies any headache. No blurred visions, no runny nose, no sore throat, no cough, no dysphagia, no chest pain, no shortness of breath, no nausea, no vomiting, no abdominal pain. Somewhat constipated. No swelling in the legs. Admission Exam (Per Admitting) Constitutional GENERAL: The patient is of moderate build, not in acute distress. VITAL SIGNS: Temperature 39.5, pulse 130s, blood pressure 92/54, oxygen 98% on room air. HEENT: Pupils equal, round, and reactive to light. Oral mucosa moist. NECK: No JVD, no neck masses. CARDIOVASCULAR: S1 and S2 heard. Tachycardia. No murmurs. RESPIRATORY SYSTEM: Normal AP diameter. No accessory muscle use. No wheezing, no crackles. ABDOMEN: Soft, bowel sounds present, nontender, no distention. CENTRAL NERVOUS SYSTEM: Shaky, cranial nerves II-XII grossly intact, nonfocal. EXTREMITIES: No edema, no erythema. Discharge Data Consultations 01/21/21 20:19 ED Decision to Admit Stat 01/22/21 01:03 Consult Spindle Maker Routine 01/23/21 09:54 Consult Oncology Routine 01/25/21 09:35 Consult Infectious Diseases Routine Procedures Performed CT SCAN OF THE ABDOMEN AND PELVIS WITHOUT IV CONTRAST CLINICAL HISTORY: Dysuria. Flank pain. Fever. Sepsis. History of chronic lymphocytic leukemia. COMPARISON STUDY: Abdominal CT dated 10/26/2020. TECHNIQUE: CT scan of the abdomen and pelvis is performed from the lung bases to the proximal femora. Images are reviewed in the axial, sagittal, and coronal planes. IV contrast was not administered for this examination as per the referring clinician. Note that the examination was performed in suboptimal fashion without IV contrast. There is also mild motion artifact. A dose lowering technique was utilized adhering to the principles of ALARA. CT DOSE: 279.29 mGy.cm FINDINGS: Lung bases: The heart is normal in size and without pericardial effusion. There is a small left pleural effusion with associated atelectasis. Liver: The unenhanced liver is normal in size, contour, and attenuation. There is no intrahepatic biliary ductal dilatation. Gallbladder: Unremarkable. Spleen: The spleen is enlarged measuring 16.4 cm in length. Pancreas: The unenhanced pancreas is moderately atrophic and grossly unremarkable. Adrenal glands: Unremarkable. Kidneys: The unenhanced kidneys are atrophic and without hydronephrosis. There are no renal calculi identified. A 1.7 cm myelolipoma is again seen in the right kidney on image #181. Abdominal vasculature: The abdominal aorta is normal in course and caliber. Bowel: There is no bowel obstruction. Moderate fecal retention is seen throughout the colon. The appendix is not identified and reported surgically absent. Peritoneum: There is no intraperitoneal free air or abdominal ascites. Suture material is seen in the right lower quadrant. Infiltration throughout the mesentery is similar to previous. Lymphadenopathy: Numerous mildly enlarged mesenteric and retroperitoneal lymph nodes are likely unchanged from 10/26/2020. These are difficult to assess without IV contrast. A mesenteric node on image #215 measures at least 11 mm in short axis. A left periaortic node on image #192 measures at least 13 mm in short axis. Pelvic viscera: The bladder wall is thickened and there is pericystic inflammation. The uterus and adnexa are normal as visualized. There is an approximately 4 cm focus of loculated fluid within the left groin with surrounding induration. Skeletal structures: The skeletal structures are osteopenic. There is mild lumbosacral spondylosis and scoliosis. No lytic or blastic lesions are seen. IMPRESSION: 1. Findings are consistent with cystitis. Correlation with clinical findings and urinalysis. 2. Numerous mildly enlarged mesenteric and retroperitoneal lymph nodes are likely similar to previous, as is splenomegaly. This is consistent with reported history of chronic lymphocytic leukemia. 3. Small left pleural effusion with associated atelectasis. 4. There is an approximately 4 cm loculation of low-attenuation fluid in the left groin. This is indeterminant and may represent a seroma. Clinical correlation will be required. 5. Additional findings as above. ACT 112: Negative or not required by law. Hospital Course (1) Septic shock due to Klebsiella pneumoniae: Urinary tract infection and Klebsiella bacteremia. Patient required short stay in ICU on pressor support and is now off this. Patient is afebrile. Leukopenia is improving. Hemodynamically doing fine. Appreciate infectious disease input. Cefepime has been discontinued. Started on ciprofloxacin 500 mg twice daily. Continue monitor daily CBC until ANC is improved. Discuss with hematology prior to discharge. 01/30 stable ANC >1,000 d/c on Cipro X 6 more days per ID PRN Lasix + Potassium PO for leg edema Venous Doppler Negative for DVT (2) Neutropenic fever: secondary to UTI and bacteremia. Continue acyclovir for prophylaxis of infection in setting of immunosuppression. (3) Pancytopenia due to chemotherapy: given Filgastrim ANC improved (4) Gram-negative bacteremia: Covered with broad-spectrum cefepime. Cipro PO x 6 more days (5) UTI (urinary tract infection): Continue ciprofloxacin 500 mg twice daily. (6) Acute urinary retention: Coffey catheter has been removed. Patient is voiding on her own. (7) Hyponatremia: resolved (8) Hypoxia: Resolved, currently on room air and doing okay. No respiratory symptoms. Recommend outpatient repeat chest imaging in 4 weeks to ensure complete resolution of abnormalities. (9) CLL (chronic lymphocytic leukemia): Currently on acalabrutinib, which has been held and will continue to be held after discharge. (10) History of breast cancer: (11) Hypothyroidism: Continue home dose of levothyroxine. (12) DVT prophylaxis: d/c home ff up with PCP
== END 2021-01-30 15:41 | disposition home health service (06) | DRG 871 ==
LOC: ED 15:31 → SUATTDRO 21:49 → 1E 21:49 → 2W 01-25 00:50